=== PATIENT | male | born 1945 | race Caucasian/White ===

== ENCOUNTER 2017-09-17 12:00 | Outpatient (RCR) | payer MEDICARE, OTHER, SELFPAY ==
--- NOTE | 2017-08-09 14:56 | HP.PTEVAL_ITS ---
Patient's Visit Information DOMINICK KENNEY is a 72 year old M referred to Physical Therapy by Deon Kline DO with a diagnosis of R TKA. Date of Evaluation: 08/09/17 Physical Therapist: Tre Caraballo PT, - Visit Plan Frequency: 2-3x /Week Duration: 4-6 Weeks Plan: R knee PROM/mobs, stretching and strengthening, balance and proprio, core strengthening, nustep, and HEP - Subjective Subjective: DOS: 07/27/17. Pt reports he had a terrible year this year secondary to severe R knee pain. 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 Pt reports he is in a lot of pain since DOS. Pt reports his knee is getting better every day. Pt reports he needed help with car transfers one week ago, but is independent with transfers now. Pt notes he has been really working his knee hard to achieve more ROM. Pt reports he still gets increased pain and swelling with prolonged walking. Pt reports he does have stairs at home, but has to negotiate them one step at a time. No sleep diff at this time secondary to pain. Pt reports his worst time of the day is morning, because he gets so tight. 1/10 pain at rest, 8/10 at worst (when his knee wants to buckle back on him) - Pain R knee Pain Intensity (Out of 10): 1 Pain Intensity Range: 8 - Objective Neuro: B LE sensation is WNL at this time. Girth at joint line: L knee 43.5 cm , R knee 47.5 cm. ROM: L knee= 0-60-124, R knee= 0-15-86. Observation: Incision still healing. Pt presents with 2+ pitting edema this date. Minor redness surrounding pt's incision. No obvious signs of infection. - Goals Goal 1:: Decrease R knee pain x 50% to aid with ambulation Goal Time Frame: 4-6 Weeks Goal 2:: Increase R knee ROM x 30 degrees to aid with restoring a more normal gait pattern Goal Time Frame: 4-6 Weeks Goal 3:: Increase R knee strength x 1 grade to aid with stair negotiation Goal Time Frame: 4-6 Weeks Goal 4:: I with HEP Goal Time Frame: 4-6 Weeks - Rehabilitation Potential Physical Therapy Diagnosis: R knee pain, weakness, and swelling secondary to a R TKA Rehabilitation Potential: Good - Anticipated Interventions Patient/Client Instruction: Educate patient on: Condition, Plan of Care For the Purpose of:: To improve self management Therapeutic Exercise to Include: Strength training, Endurance training, Balance training, Flexibilty training, Gait and locomotor training, Passive ROM, Active ROM, Dynamic Lumbar Stabilization For the Purpose of:: To decrease pain, To increase ROM, To improve muscle performance and motor function Cryotherapy (ice pack, ice massage): Yes For the Purpose of:: To decrease pain Thank you for the opportunity to evaluate your patient. For Medicare and Medicare HMO plans, please review the plan of care and approve it. It will need to be FAXED BACK to us at [phone] for Medicare purposes. Please let me know if there are questions or concerns regarding this plan of care. Physician Signature: Date:
--- NOTE | 2017-09-17 12:32 | HP.PTDCSUM ---
HP - PT D/C Summary It has been my pleasure to treat DOMINICK KENNEY under orders from Deon Kline DO, for the diagnosis of R TKA for a total of 14 visit(s). Discharge Date: Please see the following information for a summary of their discharge status. - Subjective Subjective: Pt reports no pain this date. Pt is ready for discharge - Pain R knee Pain Intensity (Out of 10): 0 - Objective Objective/Function: R knee pain 0/10. R knee ROM: 0-6-120 degrees. R knee Girth: 48.5 cm. R knee MMT: 5/5 throughout. Pt is I with HEP - Goals Goal 1:: Decrease R knee pain x 50% to aid with ambulation Goal Progress: Goal Met Goal 2:: Increase R knee ROM x 30 degrees to aid with restoring a more normal gait pattern Goal Progress: Goal Met Goal 3:: Increase R knee strength x 1 grade to aid with stair negotiation Goal Progress: Goal Met Goal 4:: I with HEP Goal Progress: Goal Met - Plan Plan: discharge - D/C Information If there are questions or concerns regarding this patient's physical therapy, please feel free to call me at [phone]. Thank you for the referral of this patient. Sincerely, Tre Caraballo, PT,
== END 2017-09-17 19:00 | disposition home or self-care (01) ==
LOC: PT 12:00
PROVIDERS: Family Provider Student in an Organized Health Care Education/Training Program; PCP Student in an Organized Health Care Education/Training Program; Visit Provider Orthopaedic Surgery
DX: Z96.651 Presence of right artificial knee joint (principal)
CPT/HCPCS: 97016; 97110; 97161; 97530

== ENCOUNTER → 2017-12-13 10:08 | Outpatient (CLI) | payer MEDICARE, OTHER, SELFPAY ==
--- NOTE | 2017-12-13 10:09 | US_ITS ---
STUDY: RENAL ULTRASOUND - COMPLETE REASON FOR EXAM: Male, 72 years old. Renal cysts. TECHNIQUE: Ultrasound evaluation of the kidneys was performed with real-time and static cummins-scale imaging. COMPARISON: CT abdomen and pelvis December 01, 2016. FINDINGS: RIGHT KIDNEY: Normal location of the right kidney, which is normal in size. The right kidney measures 11.9 x 5.4 x 5.6 cm. There is a normal cortex of the right kidney. The renal cortex measures 1.5 cm. Of the cortical cysts noted by CT, only one of the anterior lower pole lesions is demonstrated here, a 2.8 x 2.5 x 2.8 cm moderately defined hypoechoic structure. There are no right renal calculi. There is no right hydronephrosis. DISTAL RIGHT URETER: There is non-visualization of the distal right ureter. There is no demonstrated right ureterovesical junction calculus. There is a visualized right ureteral jet. LEFT KIDNEY: Normal location of the left kidney, which is normal in size. The left kidney measures 12.4 x 6.0 x 5.4 cm. There is a normal cortex of the left kidney. The renal cortex measures 1.8 cm. Of the cortical cysts noted by CT, a cluster of cysts or septated, partially exophytic lower pole cyst measuring 3.8 x 4.2 x 5.9 cm is identified. There are no left renal calculi. There is no left hydronephrosis. DISTAL LEFT URETER: There is non-visualization of the distal left ureter. There is no demonstrated left ureterovesical junction calculus. There is a visualized left ureteral jet. BLADDER: The urinary bladder has a volume of 67.2 ml at the time of scanning. There is a normal wall thickness of the distended urinary bladder. There is no demonstrated mass within the urinary bladder. There are no demonstrated bladder calculi. US/Kidney and Bladder IMPRESSION: 1. Bilateral renal cortical cysts, as noted. These only represent a fraction of the numerous bilateral cortical lesions seen by CT, so future routine time interval follow-up may be more prudent with CT. 2. No hydronephrosis. Electronically Signed: Andrew Godoy MD at 17:16 EDT , Service support ,
== END ==
PROVIDERS: Family Provider Student in an Organized Health Care Education/Training Program; PCP Student in an Organized Health Care Education/Training Program; Visit Provider Urology
DX: N28.1 Cyst of kidney, acquired (principal)
CPT/HCPCS: 76770

== ENCOUNTER → 2017-12-27 14:47 | Outpatient (CLI) | payer MEDICARE, OTHER, SELFPAY ==
[2017-12-27 16:24] LABS: Anion Gap 7 (5-15); BUN 22 mg/dL (7-18); BUN/Creat Ratio 14.6 RATIO (10-20); Calcium,Total 9.2 mg/dL (8.5-10.1); Chloride 106 mmol/L (98-107); Creatinine, Serum 1.51 mg/dL (0.70-1.30); EST Glomerular Filtration Rate 49 mL/min (>60); Est Glom Filt Rate - Afr Amer 59 mL/min (>60); Glucose 88 mg/dL (74-106); PSA,Total - Annual Screen 2.83 ng/mL (0.00-4.00); Potassium 3.3 mmol/L (3.5-5.1); Sodium Level 143 mmol/L (136-145)
== END ==
PROVIDERS: Family Provider Student in an Organized Health Care Education/Training Program; PCP Student in an Organized Health Care Education/Training Program; Visit Provider Urology
DX: N28.1 Cyst of kidney, acquired (principal); Z12.5 Encounter for screening for malignant neoplasm of prostate
CPT/HCPCS: 36415; 80048; 84153; G0103

== ENCOUNTER → 2018-01-12 09:19 | Outpatient (CLI) | payer MEDICARE, OTHER, SELFPAY ==
--- NOTE | 2018-01-12 09:21 | RAD_ITS ---
STUDY: X-RAY - RIGHT KNEE REASON FOR EXAM: Male, 72 years old. Pain. TECHNIQUE: 4 view(s) of the knee. COMPARISON: Comparison is made with prior examination dated September 08, 2017. FINDINGS: Normal visualized distal femur. Normal visualized proximal tibia and fibula. Normal proximal tibiofibular articulation. The patient is status post total knee replacement. There is good alignment. Mild degree of soft tissue swelling and small joint effusion. RAD/Knee 4 or More Views IMPRESSION: Status post total knee replacement. There is good alignment. Soft tissue swelling and small joint effusion. Electronically Signed: Gee Leonardo MD at 13:49 EDT Tel [phone], Service support ,
== END ==
PROVIDERS: Family Provider Student in an Organized Health Care Education/Training Program; PCP Student in an Organized Health Care Education/Training Program; Visit Provider Orthopaedic Surgery
DX: M25.561 Pain in right knee (principal)
CPT/HCPCS: 73564

== ENCOUNTER → 2018-04-29 13:40 | Outpatient (CLI) | payer MEDICARE, OTHER, SELFPAY | PROVIDERS: Family Provider Student in an Organized Health Care Education/Training Program; PCP Student in an Organized Health Care Education/Training Program; Visit Provider Physician Assistant | DX: M25.561 Pain in right knee (principal); M25.562 Pain in left knee | CPT/HCPCS: 73564 ==

== ENCOUNTER → 2018-08-02 13:59 | Outpatient (CLI) | payer MEDICARE, OTHER, SELFPAY ==
--- NOTE | 2018-08-02 14:02 | RAD_ITS ---
STUDY: X-RAY - LUMBAR SPINE REASON FOR EXAM: Male, 73 years old. Lower back pain TECHNIQUE: 4 view(s) of the lumbar spine were obtained. COMPARISON: None FINDINGS: Mild S-shaped sclerotic curvature of the lumbar spine. Osteopenia. Lower ribs, upper medial pelvis and sacrum unremarkable. Mild symmetric degenerative features of the SI joints. Normal vertebral body height and alignment. Preserved lordosis. Mild disc narrowing is present at multiple levels between T10 and L4, with no significant disc narrowing at L4-L5 or L5-S1. There is mild mid to low lumbar facet arthropathy/hypertrophy. In the extended position, there is no evidence of vertebral body subluxation or eccentric disc space narrowing. In the flexed position, there is no evidence of vertebral body subluxation or eccentric disc space narrowing. RAD/L/S Spine Min 4 Views IMPRESSION: Mild scoliosis. Lumbar spondylosis as described above. No evidence of abnormal motion on flexion and extension views. Electronically Signed: Rufus Santiago MD at 17:56 EST Tel , Service support ,
--- OUTSIDE RECORDS SUMMARY | 2018-09-18 18:54 | XMS RPT_ITS ---
:1945 Author Organization OHIP Support Name Relationship Address Phone FRANCOIS KENNEY Unavailable [address] + [place] [address] R Unavailable Unavailable Unavailable PABLITO, FRANCOIS Unavailable [address] + [place] [address] R Unavailable Unavailable Unavailable PABLITO, FRANCOIS Unavailable [address] + [place] [address] R Unavailable Unavailable Unavailable PABLITO, FRANCOIS Unavailable [address] + [place] [address] R Unavailable Unavailable Unavailable PABLITO, FRANCOIS Unavailable [address] + [place] [address] R Unavailable Unavailable Unavailable PABLITO, FRANCOIS Unavailable [address] + [place] [address] R Unavailable Unavailable Unavailable PABLITO, FRANCOIS Unavailable [address] + [place] [address] R Unavailable Unavailable Unavailable PABLITO, FRANCOIS Unavailable [address] + [place] [address] R Unavailable Unavailable Unavailable PABLITO, FRANCOIS Unavailable [address] + [place] [address] R Unavailable Unavailable Unavailable PABLITO, FRANCOIS Unavailable [address] + [place] [address] R Unavailable Unavailable Unavailable PABLITO, FRANCOIS Unavailable [address] + [place] [address] R Unavailable Unavailable Unavailable PABLITO, FRANCOIS Unavailable [address] + [place] [address] R Unavailable Unavailable Unavailable PABLITO, FRANCOIS Unavailable [address] + [place] [address] R Unavailable Unavailable Unavailable Care Team Providers Name Role Phone CHAKA NICHOLSON ([facility]) Attending Unavailable YOON, VLADIMIR L Referring Unavailable YOON, VLADIMIR L Attending Unavailable YOON, VLADIMIR L Referring Unavailable YOON, VLADIMIR L Attending Unavailable YOON, VLADIMIR L Referring Unavailable Marin, Janessa Attending Unavailable Yoon, Vladimir Referring Unavailable Marin, Janessa Attending Unavailable Marin, Janessa Referring Unavailable Yoon, Vladimir Primary Care Unavailable Deon Kline Attending Unavailable Yoon, Vladimir Primary Care Unavailable Marin, Janessa Attending Unavailable Marin, Janessa Referring Unavailable Yoon, Vladimir Primary Care Unavailable Moodispaw, Shaka Attending Unavailable [place], Shaka Referring Unavailable Yoon, Vladimir Primary Care Unavailable [place], Shaka Attending Unavailable Yoon, Vladimir Referring Unavailable Deon Kline Attending Unavailable Yoon, Vladimir Referring Unavailable Yoon, Vladimir Primary Care Unavailable Krishna Blanco Attending Unavailable BellaKrishna Referring Unavailable Yoon, Vladimir Primary Care Unavailable Krishna Blanco Attending Unavailable BellaKrishna Referring Unavailable Yoon, Vladimir Primary Care Unavailable Deon Kline Attending Unavailable Yoon, Vladimir Referring Unavailable Yoon, Vladimir Primary Care Unavailable Eliud, Deon Attending Unavailable Deon Kline Referring Unavailable Yoon, Vladimir Primary Care Unavailable Paras Campoverde Attending Unavailable Yoon, Vladimir Referring Unavailable Yoon, Vladimir Primary Care Unavailable Paras Campoverde Attending Unavailable Paras Campoverde Referring Unavailable Yoon, Vladimir Primary Care Unavailable PROBLEMS PROBLEMS DATE TYPE CONDITION / CODE ATTENDING STATUS SOURCE 09/12/2018 Unknown I10 - Essential [place], Active [place] (primary) hypertension [facility] / I10(ICD-10) Hospital Repository 09/12/2018 Unknown R94.31 - Abnormal [place], Active [place] electrocardiogram [facility] [ECG] [EKG] / Hospital R94.31(ICD-10) Repository 09/12/2018 Unknown R53.83 - Other fatigue [place], Active [place] / R53.83(ICD-10) [facility] Hospital Repository 09/12/2018 Unknown I71.2 - Thoracic [place], Active [place] aortic aneurysm, [facility] without rupture / Hospital I71.2(ICD-10) Repository 09/12/2018 Unknown E78.5 - [place], Active [place] Hyperlipidemia, Shaka [facility] unspecified / Hospital E78.5(ICD-10) Repository 08/02/2018 Unknown M54.5 - Low back pain Janessa Marin Active [place] / M54.5(ICD-10) [facility] Repository 04/29/2018 Unknown M25.561 - Pain in Paras Campoverde Active [place] right knee / Community M25.561(ICD-10) Hospital Repository 12/13/2017 Unknown N28.1 - Cyst of Krishna Blanco Active [place] kidney, acquired / [facility] N28.1(ICD-10) Hospital Repository 02/26/2017 Active Chronic kidney NA Active [place] disease, stage 3 [facility] (moderate) / [place] N18.3(ICD-10) Repository 10/08/2017 Active 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) 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 [address] [place] [address] OFFICE VISIT Date of Service: 09/12/18 MR#: [id number] Acct: [id number] Name: DOMINICK KENNEY Rep #: [id number] : 1945 Provider: Shaka Monroy MD Age/Sex: 73/M Location: [facility] Status: Signed HPI HPI Details: DOMINICK KENNEY, is a 73 M who presents to the office today for Outpatient cardiovascular followup. Overall from a cardiac standpoint he states he has done reasonably well. He is complaining of some any typical chest discomfort near his left breast left areola left nipple area. He states this has been somewhat tender. It does not necessarily radiate. He does get somewhat short of breath and dyspneic with activity. He believes this is related to weight gain due to inactivity because of his knee related issues. He does get tired and fatigued. Again he believes this is related to a combination of his weight gain, knee related issues, and decreased functional status. He has not had any obvious orthopnea or PND or worsening peripheral pitting edema. There has been no near syncope or syncope. She had an ECG in the office today. He was noted to be in sinus rhythm/sinus bradycardia With a first-degree AV block and with a left axis deviation, possible voltage criteria for LVH, poor R-wave progression, and nonspecific ST and T-wave changes. He did have his chest CT scan performed. His ascending thoracic aortic aneurysm appear to be stable per the report. He was noted to have coronary artery calcifications. Intake Vital Signs09/12/18 Height 6 ft 09/12/18 Weight: 308 lb 09/12/18 Body Mass Index (BMI) 41.8 09/12/18 Blood Pressure 104/62 Intake Visit Reasons: 1 Y FU Allergies lisinopril Adverse Reaction (Verified 09/12/18 10:53) HEARTBURN Medications Atorvastatin Calcium 10 mg PO DAILY 07/14/17 [History Confirmed 09/12/18] Cholecalciferol (Vitamin D3) [Vitamin D3] 2,000 unit PO DAILY 07/14/17 [History Confirmed 09/12/18] Hydrochlorothiazide 12.5 mg PO DAILY 07/14/17 [History Confirmed 09/12/18] Losartan Potassium [Cozaar] 100 mg PO DAILY 07/14/17 [History Confirmed 09/12/18] Tamsulosin HCl [Flomax] 0.4 mg PO QHS 07/14/17 [History Confirmed 09/12/18] amlodipine 5 mg tablet 5 mg PO QDAY 08/26/17 [History Confirmed 09/12/18] atenolol 100 mg tablet 100 mg PO QDAY 08/26/17 [History Confirmed 09/12/18] omega-3 fatty acids 1,000 mg capsule 1,000 mg PO DAILY 09/12/18 [History Confirmed 09/12/18] sertraline 50 mg tablet 50 mg PO DAILY 09/12/18 [History Confirmed 09/12/18] [facility] Medical History Essential hypertension (Chronic) Thoracic aortic aneurysm without rupture (Chronic) Fatigue (Acute) Abnormal EKG (Acute) Hyperlipidemia (Chronic) BPH (benign prostatic hyperplasia) (Acute) YOVANI (obstructive sleep apnea) (Acute) CKD (chronic kidney disease) (Chronic) Diverticulosis (Chronic) Surgical History History of tonsillectomy and adenoidectomy (Acute) History of arthroscopy of left knee (Resolved) History of foot surgery (Resolved) Hx of appendectomy (Resolved) Status post right knee replacement (Resolved) Family History Father CAD (coronary artery disease) Mother Congestive heart failure Brother CAD (coronary artery disease) Hypertension Sister CAD (coronary artery disease) Hypertension Social History Smoking Status: Former smoker alcohol intake: current substance use type: does not use ROS Const Const: Negative for fatigue, weakness, weight gain, weight loss, frequent falls or excessive sweating Eyes Eyes: Negative for change in vision, blurry vision or transient loss of vision ENT ENT: Negative for dizziness or balance problems Cardio Chest Pain: Yes Character: sharp (rates 1 on pain scale) Onset: at rest Location: left chest Duration: brief Palpitations: No Edema: Bilateral (slight to bilat LE) Muscle aches with walking: None Resp Respiratory: Positive for SOB with activity (increased); negative for SOB at rest Additional Details: wears CPAP at night GI GI: Negative vomiting or vomiting blood/hematemesis : Negative for hematuria Musc Musc: Positive for joint pain (denies pain reports that rt knee gives out even though s/p knee replacment); negative for balance problems, muscle aches/ myalgia or muscle weakness Skin Skin: Negative non-healing lesions or rash Neuro Neuro: Negative for weakness, blurry vision, dizziness, lightheadedness, frequent falls or orthostatic symptoms Alan Hematologic/Lymphatic: Negative for easy bleeding Endo Endo: Negative for fatigue or excessive sweating Psych Psych: Negative for anxiety or depression Allergy Allergy/Immunology: Negative for hives, Negative for rash Cardiology Exam Const Appearance: cooperative, healthy appearing, comfortable, no acute distress, well developed and well groomed Nutritional Appearance: overweight and obese Orientation: alert, awake and oriented x3 Head Head: normal to inspection, normocephalic and atraumatic Ears: hearing grossly normal bilaterally Nose: external nose normal Face and Sinus: face symmetric Mouth: oral mucosae normal Eyes General: appearance normal, both eyes and all related structures Eyelids: eyelids normal Pupils: PERRL EOM: EOM intact bilaterally Neck Neck: normal visual inspection and full ROM Carotids: normal carotid upstroke Chest Chest inspection: normal inspection of the chest, symmetric chest movement and normal respiratory effort Auscultation: Bilateral: Clear to Auscultation Tender to palpation near the left aerola / nipple area Cardio Palpation: normal PMI Rate: regular rate Rhythm: regular rhythm Heart sounds: S1 normal and S2 normal GI GI: obese, normal to inspection, soft and bowel sounds present Neuro General: alert, awake and oriented x3 Skin Skin: no rashes or lesions noted Extremities Pulses: Normal: Right Radial Pulse, Left Radial Pulse Lower Extremity Edema: None: Bilateral, Trace: Right Musculoskel Musculoskeletal: joint tenderness Psych Psychological: normal affect Assessment AND Plan 1. Abnormal electrocardiogram R94.31 Plan He does have an abnormal cardiogram. Compared to an echocardiogram approximately 1 year ago appears similar. He does have cardiovascular risk factors. His chest CT scan is demonstrated coronary artery calcification. He does have some mixed symptoms. It would not be unreasonable to further evaluate him. This will include a pharmacologic stress nuclear imaging study. Walk on a treadmill at this time based upon his knee related issues were previous knee surgery and still ongoing knee related issues. Orders Orders: 2. Thoracic aortic aneurysm without rupture I71.2 Plan His thoracic aortic aneurysm appears to be stable per the report. He will continue to be followed as deemed appropriate. Orders Orders: 3. Hyperlipidemia, unspecified hyperlipidemia type E78.5 Plan He states his lipids have been under good control. A copy would be appreciated for continuity of care. Orders Orders: 4. Essential hypertension I10 Plan His blood pressure appears to be well controlled today. He will continue medical management. Orders Orders: 5. Fatigue, unspecified type R53.83 Plan He does have combination of symptoms with respect any typical chest discomfort, dyspnea, and fatigue. He has attributed these 2 noncardiovascular issues. However he does have cardiovascular risk factors. There is concern with respect to his wrist factors, coronary calcification, and symptoms as to whether or not he has developed any significant underlying COPD that would contribute to any of this. Thus he will be further evaluated with a pharmacologic stress nuclear imaging study. Orders Orders: Plan Detail Additional Comments Otherwise she will be scheduled for an outpatient visit approximately 1 year period consideration will be given based on the stability of his thoracic aortic aneurysm-ascending, as to when to repeat his chest CT scan. Thank you for allowing me to participate in the care of your patient. Please don't hesitate to call if any issues arise. This note was generated using a voice recognition system and there may be incorrect words, spelling or punctuation that were not noted when reviewing the office note prior to saving. Follow Up 1 Year (PFM) Coding Level of Care Code Off vis,est,level 4 Diagnoses Abnormal electrocardiogram R94.31 Thoracic aortic aneurysm without rupture I71.2 Hyperlipidemia, unspecified hyperlipidemia type E78.5 Hyperlipidemia type: unspecified Essential hypertension I10 Fatigue, unspecified type R53.83 Fatigue type: unspecified Coding Level of Care Code Off vis,est,level 4 Diagnoses Abnormal electrocardiogram R94.31 Thoracic aortic aneurysm without rupture I71.2 Hyperlipidemia, unspecified hyperlipidemia type E78.5 Hyperlipidemia type: unspecified Essential hypertension I10 Fatigue, unspecified type R53.83 Fatigue type: unspecified Supplemental Info Supplemental Information Transthoracic echocardiogram: 07/29/2017 Interpretation Summary The estimated ejection fraction is 65 %. Stage 1 diastolic dysfunction. Trivial mitral valve insufficiency. Mild (1+) tricuspid valve insufficiency. Right ventricular systolic pressure estimated to be 45 mmHg. Mild pulmonary hypertension. Compared to echo report dated 12/31/2009, LV Function has remained the same, but RVSP has increased from 32 to 45 mm Hg. Stress test: 12/31/2009 The patient was injected with 15.0 mCi of Tc99m Cardiolite and subsequently rest SPECT Cardiolite nuclear imaging was obtained in the horizontal long, vertical long, and short axes views, The patient underwent pharmacologic (Regadenoson) evaluation, with a peak heart rate of 74 beats per minute (47% predicted maximum heart rate) with a peak blood pressure of 160/80 mmHg. The patient was injected with 44.8 mCi of Tc99m Cardiolite and subsequently stress SPECT Cardiolite nuclear imaging was obtained in the horizontal long, vertical long, and short axes views. Gated Cardiolite study at peak stress was obtained. INTERPRETAT ION Rest and stress demonstrate a small area of subtle diminished tracer uptake in the lateral apical segment without significant change. There were similar type findings on the resting and stress polar map images. There is end systolic thickening and brightening. On the gated Cardiolite study there is myocardial thickening and inward wall motion. The reported LVEF is 56%. The aforementioned findings appear compatible with physiologic apical thinning. There are no myocardial perfusion changes considered diagnostic for stress induced myocardial ischemia. The gated LVEF is 56%, IMPRESSION 1. Rest and stress SPECT Cardiolite nuclear imaging demonstrate myocardial perfusion changes appearing compatible with physiologic apical thinning. 2. There are no myocardial perfusion changes considered diagnostic Chest CT scan: 09/07/2018 Normal enhancement of the main pulmonary artery and right and left pulmonary arteries. Normal enhancement of the bilateral peripheral pulmonary arteries. There is no demonstrated pulmonary embolism. There is minimal aneurysmal dilatation of the ascending aorta. The transverse diameter of the ascending aorta measures 42 mm's. There is no demonstrated aortic dissection. There is ectasia and tortuosity of the thoracic aorta at the level of the diaphragmatic hiatus. There are calcifications of the coronary arteries. Normal mediastinum. Normal hilar regions. Normal visualized trachea and bronchi. The lungs are well expanded. Normal pulmonary parenchyma. Normal pleura. Normal chest wall structures. There are degenerative changes of thoracic spine. Fatty infiltration of the liver. CT/CTA Chest W/WO Contrast IMPRESSION: Minimal dilatation of the ascending thoracic aorta. Labs LDL Cholesterol 45 mg/dL (0-130) 10/15/14 HDL Cholesterol 29 mg/dL (40-) L 10/15/14 Triglycerides 158 mg/dL (0-199) 10/15/14 VLDL Cholesterol 32 mg/dL (5-40) 10/15/14 Diagnostics Electrocardiogram 09/12/18 Chest X-Ray 07/28/17 09/12/18 1147 <Electronically signed by Shaka Monroy MD> Date Shaka Monroy MD Cosigner Signature: Date (if applicable) CC: Vladimir Caputo DO 12 LEAD EKG PERFORMED Observed: 09/12/2018 Status: F Source: [place] BY [facility] 11:02 AM [facility] REPOSITORY [facility] [address] [place] [address] 12 Lead EKG performed by [facility] 09/12/18 110 MR#: [id number] Acct: [id number] Name: DOMINICK KENNEY Rep #: [id number] : 1945 73 From: Shaka Monroy MD Attending Dr: Shaka Monroy MD Status: DEP AMB Ordering Dr: Shaka Monroy MD Date: 09/12/18 Location: [facility] Sex: M C Admitted: BMS/12 Lead EKG performed by [facility] ECG Report Interpretation Sinus Bradycardia -First degree A-V block Left axis deviationPossible Left anterior fascicular block Voltage criteria for Left ventricular hypertrophy Poor R-wave progression -may be secondary to left ventricular hypertrophy; cannot excluded old anterior infarct. Abnormal Electronically signed on 09/12/2018 at 12:01 by Shaka Monroy [employer] Version 8610 09/12/18 1203 Date Shaka Monroy MD CC: Vladimir Caputo DO Date Dictated: 09/12/181100 Date Transcribed: 09/12/181100 Vocational Horticulture Instructor: PM Signed CREATININE FINGERSTICK Collected: 09/07/2018 Status: F Source: [place] 8:00 AM [facility] REPOSITORY TYPE CODE TESTS RESULT OUT OF RANGE REFERENCE UNITS LAB L9100.0210 0.70-1.30 mg/dL Normal CREATININE WB 1.2 Performed By: #### L9100.0200 #### [facility] [address] [place] [address] CTA CHEST W/WO Observed: 09/07/2018 Status: F Source: [place] CONTRAST 7:54 AM [facility] REPOSITORY [facility] Imaging Services [address] [place] [address] CTA Chest W/WO Contrast MR#: [id number] Acct: [id number] Name: DOMINICK KENNEY Rep #: [id number] : 1945 M 73 From: Gee Leonardo MD PCP: Vladimir Caputo DO Status: REG CLI Study: CTA Chest W/WO Contrast Date of Exam: 09/07/18 Exam# [id number] Ordering Dr: Shaka Monroy MD STUDY: CTA CHEST REASON FOR EXAM: Male, 73 years old. Follow-up for thoracic aortic aneurysm. RADIATION DOSAGE (If Supplied By Facility): CTDIvol = ( 25.04 ) mGy, DLP = ( 777.74 ) mGycm TECHNIQUE: The examination was performed with the intravenous administration of 100ml ml of Isovue 370 contrast material. Post-processing of the angiographic images was performed, with multiplanar reformation and 3D reconstruction. Individualized dose optimization techniques were used for this CT. COMPARISON: None. FINDINGS: Normal enhancement of the main pulmonary artery and right and left pulmonary arteries. Normal enhancement of the bilateral peripheral pulmonary arteries. There is no demonstrated pulmonary embolism. There is minimal aneurysmal dilatation of the ascending aorta. The transverse diameter of the ascending aorta measures 42 mm's. There is no demonstrated aortic dissection. There is ectasia and tortuosity of the thoracic aorta at the level of the diaphragmatic hiatus. There are calcifications of the coronary arteries. Normal mediastinum. Normal hilar regions. Normal visualized trachea and bronchi. The lungs are well expanded. Normal pulmonary parenchyma. Normal pleura. Normal chest wall structures. There are degenerative changes of thoracic spine. Fatty infiltration of the liver. CT/CTA Chest W/WO Contrast IMPRESSION: Minimal dilatation of the ascending thoracic aorta. Electronically Signed: Gee Leonardo MD at 14:39 EST Tel [phone], Service support , CC: Vladimir Caputo DO; Shaka Monroy MD Vocational Horticulture Instructor: Signed ORTHOPEDIC VISIT Observed: 08/13/2018 Status: F Source: [place] REPORT 4:26 PM [facility] REPOSITORY [facility] [address] [facility] [address] [place] [address] OFFICE VISIT Date of Service: 08/02/18 MR#: [id number] Acct: [id number] Name: DOMINICK KENNEY Rep #: [id number] : 1945 Provider: Janessa Marin MD Age/Sex: 73/M Location: [facility] Status: Signed Intake Intake Visit Reasons: LOW BACK Is patient in pain?: Yes Allergies lisinopril Adverse Reaction (Verified 08/02/18 15:17) HEARTBURN Medications Atorvastatin Calcium 10 mg PO DAILY 07/14/17 [History Confirmed 10/20/17] Cholecalciferol (Vitamin D3) [Vitamin D3] 2,000 unit PO DAILY 07/14/17 [History Confirmed 10/20/17] Cyanocobalamin [Vitamin B12] 1,000 mcg PO DAILY@0800 07/14/17 [History Confirmed 10/20/17] Hydrochlorothiazide 12.5 mg PO DAILY 07/14/17 [History Confirmed 10/20/17] Losartan Potassium [Cozaar] 100 mg PO DAILY 07/14/17 [History Confirmed 10/20/17] [place] Vitals 1 cap PO BID 07/14/17 [History Confirmed 10/20/17] Tamsulosin HCl [Flomax] 0.4 mg PO QHS 07/14/17 [History Confirmed 10/20/17] amlodipine 5 mg tablet 5 mg PO QDAY 08/26/17 [History Confirmed 10/20/17] atenolol 100 mg tablet 100 mg PO QDAY 08/26/17 [History Confirmed 10/20/17] PFSH Medical History Hypertension (Chronic) Thoracic aortic aneurysm without rupture (Acute) Fatigue (Acute) Abnormal EKG (Acute) Hyperlipidemia (Acute) BPH (benign prostatic hyperplasia) (Acute) YOVANI (obstructive sleep apnea) (Acute) CKD (chronic kidney disease) (Chronic) Diverticulosis (Chronic) Surgical History History of tonsillectomy and adenoidectomy (Acute) History of arthroscopy of left knee (Resolved) History of foot surgery (Resolved) Hx of appendectomy (Resolved) Status post right knee replacement (Resolved) Family History Father CAD (coronary artery disease) Mother Congestive heart failure Brother CAD (coronary artery disease) Hypertension Sister CAD (coronary artery disease) Hypertension Social History Smoking Status: Former smoker alcohol intake: current substance use type: does not use HPI LOW BACK: Details: DOMINICK KENNEY is a 73 year old RHD M here today for low back pain 80% and 20% bilateral numbness starting from his knees and going distally into his feet. Patient notes that he has pain over his right low back. He is unsure though if it is due to have a right total knee last year by Dr. Kline. He denies postoperative complications. His pain is worse in his back in the morning and when he sleeps on the right side. It is improved with sleeping on his back. He denies any physical therapy or injections. Patient states that he has tried acupuncture which is helpful. He takes alleve as needed. He denies bowel or bladder issues, gait instability or loss of hand dexterity. He denies any pain medications. He denies constitutional symptoms. He has hypertension, hypercholesterolemia, and PTSD. He states his bilateral calf and feet paresthesias are chronic. He is retired. He does not smoke. He does not drink. ROS Const Reports system reviewed and no additional complaints, except as docu Eyes Reports system reviewed and no additional complaints, except as docu ENT Reports system reviewed and no additional complaints, except as docu Card Reports system reviewed and no additional complaints, except as docu Resp Reports system reviewed and no additional complaints, except as docu GI Reports system reviewed and no additional complaints, except as docu Reports system reviewed and no additional complaints, except as docu Musc Reports back pain, Reports numbness, Reports muscle weakness Skin/Breast Reports system reviewed and no additional complaints, except as docu Neuro Yes system reviewed and no additional complaints, except as docu, Yes numbness Psych Reports system reviewed and no additional complaints, except as docu Endo Reports system reviewed and no additional complaints, except as docu Ortho Exam Spine Neuro: Yes Straight Leg Raise (negative bilaterally), Montano's (negative bilaterally), Babinski (downgoing bilaterally) and Clonus (none bilaterally) General: alert, oriented x3 Skin: Yes dysraphism (none) Capillary Refill <2sec: Yes Gait: normal gait, other (heel and toe walk) Motor: strength 5/5 throughout Sensory Exam: other (decreased sensation in the bilateral calf and feet in stocking glove way) DTR's: Rt Triceps: 2+, Lt Triceps: 2+, Rt Biceps: 2+, Lt Biceps: 2+, Rt Brachioradialis: 2+, Lt Brachioradialis: 2+, Rt Patellar: 2+, Lt Patellar: 2+, Rt Ankle: 2+, Lt Ankle: 2+ Plantar Reflexes: Downgoing: bilateral Coordination: Romberg test normal, other (unable to tandem gait due to knee pain) SPINE TESTING CERVICAL THORACIC LUMBAR SLR: Negative Musculoskeletal General: Yes normal gait Cervical Spine: cervical ROM normal Thoracic/Lumbar Spine: straight leg raise negative bilaterally, pain with thoraco-lumbar ROM (worse with lumbar extension), thoraco-lumbar ROM limited, paraspinal tenderness Strength 0=absent - 5=normal Deltoid R (C5): 5, Deltoid L (C5): 5, R Bicep (C5-6): 5, L Bicep (C5-6): 5, R Wrist Extensor (C6): 5, L Wrist Extensor (C6): 5, R Tricep (C7): 5, L Tricep (C7): 5, R Finger Flexors (C8): 5, L Finger Flexors (C8): 5, R First Dorsal Interossei (C8): 5, L First Dorsal Interossei (C8): 5, R Hip Flexor (L1-3): 5, L Hip Flexor (L1-3): 5, R Quadriceps (L2-4): 5, L Quadriceps (L2-4): 5, R Anterior Tibialis (L4-5): 5, L Anterior Tibialis (L4- 5): 5, R Hamstrings (L5-S1): 5, L Hamstrings (L5-S1): 5, GS (S1): 5, L GS (S1): 5, R Peroneals (S1): 5, L Peroneals (S1): 5 Assessment AND Plan Problems 1. Chronic bilateral low back pain without sciatica M54.5; G89.29 Plan Imaging: XR lumbar spine 08/02/2018 reveals diffuse spondylosis MRI lumbar spine 05/11/2017 reveals diffuse spondylosis with mild L4-5 foraminal stenosis. No severe central or lateral recess stenosis EMG 04/07/2017 reveals irritable L5-S1 right greater than left I/R/P: 1. back pain 2. bilateral leg paresthesias in a stocking glove distribution. No radiating pain 3. history of right TKA 2016 4. PTSD Mr. Kenney presents with back pain and bilateral calf and feet paresthesias. His MRI does not reveal significant compressive neural lesion to correlate with his clinical complaints. Surgical intervention is not recommended at this time. The natural history and course of the symptomatology of back pain was discussed in detail with the patient. I answered all questions regarding the mode of onset, pathophysiology, symptoms, imaging findings, treatment options regarding his diagnosis. Recommend referral to PCP for peripheral neuropathy evaluation and work up. Discussed pain management referral and physical therapy referral. Patient declines at this time. He will contact us if he changes his mind. Plan of care discussed. All questions answered. The patient verbalized understanding of the disease process and agreed to the treatment plan formulated for this visit. Orders Orders: Coding Level of Care Code Off vis,new,level 4 Diagnoses Chronic bilateral low back pain without sciatica M54.5; G89.29 Back pain location: low back pain Chronicity: chronic Back pain laterality: bilateral Sciatica presence: without sciatica 08/13/18 1626 <Electronically signed by Janessa Marin MD> Date Janessa Marin MD Cosigner Signature: Date (if applicable) CC: L/S SPINE MIN 4 Observed: 08/02/2018 Status: F Source: [place] 2:02 PM [facility] REPOSITORY [facility] Imaging Services [address] [place], [place] [address] [address] L/S Spine Min 4 Views MR#: [id number] Acct: [id number] Name: DOMINICK KENNEY Rep #: [id number] : 1945 M 73 From: Rufus Santiago MD PCP: Vladimir Caputo DO Status: REG CLI Study: L/S Spine Min 4 Views Date of Exam: 08/02/18 Exam# [id number] Ordering Dr: Janessa Marin MD STUDY: X-RAY - LUMBAR SPINE REASON FOR EXAM: Male, 73 years old. Lower back pain TECHNIQUE: 4 view(s) of the lumbar spine were obtained. COMPARISON: None FINDINGS: Mild S-shaped sclerotic curvature of the lumbar spine. Osteopenia. Lower ribs, upper medial pelvis and sacrum unremarkable. Mild symmetric degenerative features of the SI joints. Normal vertebral body height and alignment. Preserved lordosis. Mild disc narrowing is present at multiple levels between T10 and L4, with no significant disc narrowing at L4-L5 or L5-S1. There is mild mid to low lumbar facet arthropathy/hypertrophy. In the extended position, there is no evidence of vertebral body subluxation or eccentric disc space narrowing. In the flexed position, there is no evidence of vertebral body subluxation or eccentric disc space narrowing. RAD/L/S Spine Min 4 Views IMPRESSION: Mild scoliosis. Lumbar spondylosis as described above. No evidence of abnormal motion on flexion and extension views. Electronically Signed: Rufus Santiago MD at 17:56 EST Tel , Service support , CC: Janessa Marin MD; Vladimir Caputo DO Vocational Horticulture Instructor: Signed ORTHOPEDIC VISIT Observed: 04/29/2018 Status: F Source: [place] RE[place] 3:53 PM [facility] REPOSITORY [facility] Medicine [address] [place] [address] OFFICE VISIT Date of Service: 04/29/18 MR#: [id number] Acct: [id number] Name: DOMINICK KENNEY Rep #: [id number] : 1945 Provider: JUANA Campoverde Age/Sex: 72/M Location: [facility] [place].[facility] [place] Status: Signed Intake Intake Visit Reasons: RIGHT KNEE Allergies lisinopril Adverse Reaction (Verified 10/20/17 09:00) HEARTBURN Medications Atorvastatin Calcium 10 mg PO DAILY 07/14/17 [History Confirmed 10/20/17] Cholecalciferol (Vitamin D3) [Vitamin D3] 2,000 unit PO DAILY 07/14/17 [History Confirmed 10/20/17] Cyanocobalamin [Vitamin B12] 1,000 mcg PO DAILY@0800 07/14/17 [History Confirmed 10/20/17] Hydrochlorothiazide 12.5 mg PO DAILY 07/14/17 [History Confirmed 10/20/17] Losartan Potassium [Cozaar] 100 mg PO DAILY 07/14/17 [History Confirmed 10/20/17] [place] Vitals 1 cap PO BID 07/14/17 [History Confirmed 10/20/17] Tamsulosin HCl [Flomax] 0.4 mg PO QHS 07/14/17 [History Confirmed 10/20/17] amlodipine 5 mg tablet 5 mg PO QDAY 08/26/17 [History Confirmed 10/20/17] atenolol 100 mg tablet 100 mg PO QDAY 08/26/17 [History Confirmed 10/20/17] PFSH Medical History Hypertension (Chronic) Thoracic aortic aneurysm without rupture (Acute) Fatigue (Acute) Abnormal EKG (Acute) Hyperlipidemia (Acute) BPH (benign prostatic hyperplasia) (Acute) YOVANI (obstructive sleep apnea) (Acute) CKD (chronic kidney disease) (Chronic) Diverticulosis (Chronic) Surgical History History of tonsillectomy and adenoidectomy (Acute) History of arthroscopy of left knee (Resolved) History of foot surgery (Resolved) Hx of appendectomy (Resolved) Status post right knee replacement (Resolved) Family History Father CAD (coronary artery disease) Mother Congestive heart failure Brother CAD (coronary artery disease) Hypertension Sister CAD (coronary artery disease) Hypertension Social History Smoking Status: Former smoker alcohol intake: current substance use type: does not use HPI RIGHT KNEE: Details: DOMINICK KENNEY is a 72 year old M here today for increased right knee pain and new onset left knee pain. He has distal quad/femur pain on the right and medial knee pain on the left. His is 9 months post TKA on the right and he states that its tight and he feels something shifting. He has had no injections or imaging of the left. Denies numbness, tingling or other associated symptoms. Decreased rom in bilateral knees. Ortho Exam Right Knee Date of Surgery: 07/27/17 Skin/Wound: Yes CDI Contralateral Normal: No Swelling: Yes Homans Sign: No Knee ROM: Yes ROM-Extension -20 to 0, Yes ROM-Flexion 0-140 (110) Examination: Yes Pain with flexion, No Pain with extention, Yes Crepitus, No Med jt line tenderness, No Lat jt line tenderness Quad Atrophy: No Patella Grind: Yes Left Knee Skin/Wound: Yes CDI Contralateral Normal: No Swelling: Yes Homans Sign: No Knee ROM: Yes ROM-Extension -20 to 0, Yes ROM-Flexion 0-140 (110) Examination: Yes med jt line tenderness, Yes Pain with flexion, Yes Crepitus Office Procedures Ortho Injections Injections Yes Knee Left Details: Obtained consent for injection. Under sterile conditions, injected the patients left knee with a 10cc cocktail of 8cc bupivacaine and 2cc kenalog . The patient tolerated the injection well without any noted complication. Patient should call our office if redness develops, pain worsens or if they have any concerns. Office Meds Kenalog Performing Provider: JUANA Garg Administered by: JUANA Garg on 04/29/18 14:38 Dose Route Admin Location Lot Number Expiration DateNDC Venture Capital Analyst 80 mg Intra-Articularleft knee [id number] 07/23/19 [id number] [facility] Assessment AND Plan Problems 1. History of arthroplasty of right knee Z96.651 2. Arthritis of left knee M17.12 Plan Patient has no pains within the joint on the right. HIs hardware appears stable without interval change from previous x-rays. His pains though are in the right quad area and he has some mild atrophy as well as some patellofemoral grind and thus need to really work on quad strength. Weight loss is also something that would be beneficial for his knees. We discussed that if he has any worsening or change in pains that he is to see Dr. Rubio for evaluation. We did go ahead and give him an injection into the left knee at this time. Patient to f/u as needed. 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 ([id number]) 04/29/18 1553 <Electronically signed by Paras ARIAS> Date Paras ARIAS Cosigner Signature: Date (if applicable) CC: KNEE 4 OR MORE Observed: 04/29/2018 Status: F Source: [place] VIEWS 1:46 PM [facility] REPOSITORY [facility] Imaging Services [address] [place] [address] Knee 4 or More Views MR#: [id number] Acct: [id number] Name: DOMINICK KENNEY Rep #: [id number] : 1945 M 72 From: Leonidas Campbell MD PCP: Vladimir Caputo DO Status: REG CLI Study: Knee 4 or More Views Date of Exam: 04/29/18 Exam# [id number] Ordering Dr: Paras Campoverde STUDY: X-RAY - LEFT KNEE REASON FOR EXAM: Male, 72 years old. Bilateral knee pain. TECHNIQUE: For view(s) of the knee. COMPARISON: None. FINDINGS: Normal visualized distal femur. Normal visualized proximal tibia and fibula. Normal proximal tibiofibular articulation. There is no demonstrated fracture. There is moderate degenerative arthrosis of the medial femorotibial compartment with moderate joint space narrowing. Normal lateral femorotibial compartment. Normal patellofemoral articulation. There is no demonstrated joint effusion. There are faint vascular calcifications. RAD/Knee 4 or More Views IMPRESSION: Degenerative arthrosis. Electronically Signed: Leonidas Campbell MD at 14:21 EDT Tel , Service support , CC: JUANA Campoverde; Vladimir Caputo DO Vocational Horticulture Instructor: Signed KNEE 4 OR MORE Observed: 04/29/2018 Status: F Source: [place] VIEWS 1:43 PM [facility] REPOSITORY [facility] Imaging Services [address] [place] [address] Knee 4 or More Views MR#: [id number] Acct: [id number] Name: DOMINICK KENNEY Rep #: [id number] : 1945 M 72 From: Leonidas Campbell MD PCP: Vladimir Caputo DO Status: REG CLI Study: Knee 4 or More Views Date of Exam: 04/29/18 Exam# [id number] Ordering Dr: Paras Campoverde STUDY: X-RAY - RIGHT KNEE REASON FOR EXAM: Male, 72 years old. Bilateral knee pain. TECHNIQUE: For view(s) of the knee. COMPARISON: None. FINDINGS: Normal visualized distal femur. Normal visualized proximal tibia and fibula. Normal proximal tibiofibular articulation. There is no demonstrated fracture. There is total right knee prosthesis. There is no evidence of joint effusion. The soft tissue structures are unremarkable. RAD/Knee 4 or More Views IMPRESSION: Status post total knee prosthesis. No demonstrated acute osseous changes. Electronically Signed: Leonidas Campbell MD at 14:20 EDT Tel , Service support , CC: JUANA Campoverde; Vladimir Caputo DO Vocational Horticulture Instructor: Signed ORTHOPEDIC VISIT Observed: 02/06/2018 Status: F Source: [place] RE[place] 8:51 PM [facility] REPOSITORY [facility] Orth[facility] AND Sports Medicine [address] [place] [address] OFFICE VISIT Date of Service: 01/12/18 MR#: [id number] Acct: [id number] Name: DOMINICK KENNEY Rep #: [id number] : 1945 Provider: Deon Kline DO Age/Sex: 72/M Location: [facility] [place] Status: Signed Intake Intake Visit Reasons: right knee Allergies lisinopril Adverse Reaction (Verified 10/20/17 09:00) HEARTBURN Medications Atorvastatin Calcium 10 mg PO DAILY 07/14/17 [History Confirmed 10/20/17] Cholecalciferol (Vitamin D3) [Vitamin D3] 2,000 unit PO DAILY 07/14/17 [History Confirmed 10/20/17] Cyanocobalamin [Vitamin B12] 1,000 mcg PO DAILY@0800 07/14/17 [History Confirmed 10/20/17] Hydrochlorothiazide 12.5 mg PO DAILY 07/14/17 [History Confirmed 10/20/17] Losartan Potassium [Cozaar] 100 mg PO DAILY 07/14/17 [History Confirmed 10/20/17] [place] Vitals 1 cap PO BID 07/14/17 [History Confirmed 10/20/17] Tamsulosin HCl [Flomax] 0.4 mg PO QHS 07/14/17 [History Confirmed 10/20/17] amlodipine 5 mg tablet 5 mg PO QDAY 08/26/17 [History Confirmed 10/20/17] atenolol 100 mg tablet 100 mg PO QDAY 08/26/17 [History Confirmed 10/20/17] PFSH Medical History Hypertension (Chronic) Thoracic aortic aneurysm without rupture (Acute) Fatigue (Acute) Abnormal EKG (Acute) Hyperlipidemia (Acute) BPH (benign prostatic hyperplasia) (Acute) YOVANI (obstructive sleep apnea) (Acute) CKD (chronic kidney disease) (Chronic) Diverticulosis (Chronic) Surgical History History of tonsillectomy and adenoidectomy (Acute) History of arthroscopy of left knee (Resolved) History of foot surgery (Resolved) Hx of appendectomy (Resolved) Status post right knee replacement (Resolved) Family History Father CAD (coronary artery disease) Mother Congestive heart failure Brother CAD (coronary artery disease) Hypertension Sister CAD (coronary artery disease) Hypertension Social History Smoking Status: Former smoker alcohol intake: current substance use type: does not use HPI right knee: Details: DOMINICK KENNEY is a 72 year old M here today for s/p right TKA dos 07/27/17. Patient notes that he is doing well. He has some increased pain while ambulating down the stairs. His pain is over his lateral knee. Denies numbness, tingling or other associated symptoms. His incision is fully healed. ROS Const Reports system reviewed and no additional complaints, except as docu Eyes Reports system reviewed and no additional complaints, except as docu ENT Reports system reviewed and no additional complaints, except as docu Card Reports system reviewed and no additional complaints, except as docu Resp Reports system reviewed and no additional complaints, except as docu GI Reports system reviewed and no additional complaints, except as docu Reports system reviewed and no additional complaints, except as docu Musc Reports stiffness Skin/Breast Reports system reviewed and no additional complaints, except as docu Neuro Yes system reviewed and no additional complaints, except as docu Psych Reports system reviewed and no additional complaints, except as docu Endo Reports system reviewed and no additional complaints, except as docu Ortho Exam Right Knee Skin/Wound: Yes CDI Contralateral Normal: No Swelling: No Homans Sign: No Knee ROM: Yes ROM-Flexion 0-140 (0-120) Examination: No Med jt line tenderness, No Lat jt line tenderness, No TTP inf pole patella, No Crepitus, No Pain with flexion, No Pain with extention, No Maryam's Test, No Dial at 90, No Dial at 60, No Duck Walk Quad Atrophy: No Stability: NML: Anterior Drawer, NML: Rizwana, NML: Posterior Drawer, NML: Valgus 0, NML: Valgus 30, NML: Varus 0, NML: Varus 30, NML: Dial 90, NML: Dial 30 Popliteal Adenopathy: No Patella Translation: 1 Apprehension with Lateral Translation: No Patellar Tilt Normal: Yes Patella Grind: No KNEE: Alert and oriented x3 no acute distress. Provide contact and affect. Otherwise walks a nonantalgic gait. He has no calf pain and negative Homans. Gross motor strength 5 out of 5. No popliteal masses or adenopathy. EHL anterior gastrocsoleus peroneals quads hamstrings 5 out of 5. Range of motion 0-120. Ligaments are stable in all planes. Able to perform straight leg raise without a lag. X-rays: Evaluated by myself with the patient-normal radiographic appearance status post right total knee arthroplasty. Hardware otherwise well-seated well placed. No signs of early loosening. Left Knee Patella Translation: 1 Assessment AND Plan Problems 1. Primary osteoarthritis of right knee M17.11 2. History of total right knee replacement (TKR) Z96.651 Plan Assessment: Right knee osteoarthritis status post right total knee arthroplasty doing well. Plan: This point time patient is doing well. His range of motion looks very good continues to improve on his overall strength. Did tell patient some of the discomfort he feels going downhill may be related to not only prosthesis but also continue to work on quad strengthening. Otherwise he says generally his knee feels very good he forgets he has a prosthesis. The patient can ultimately follow up here in 6 months for his surveillance x-rays with our physician pier master assistant Avery. However if there is an issue the patient will be referred to the orthopedic group. Patient agrees with plan. He is aware that I am leaving the practice in February. Any major issues return. Orders Orders: Coding Level of Care Code Off vis,est,level 4 Diagnoses Primary osteoarthritis of right knee M17.11 Osteoarthritis type: primary History of total right knee replacement (TKR) Z96.651 02/06/182050 <Electronically signed by Deon Kline DO> Date Deon Kline DO Cosigner Signature: Date (if applicable) CC: KNEE 4 OR MORE Observed: 01/12/2018 Status: F Source: [place] VIEWS 9:21 AM [facility] REPOSITORY [facility] Imaging Services [address] [place] [address] Knee 4 or More Views MR#: [id number] Acct: [id number] Name: DOMINICK KENNEY Rep #: [id number] : 1945 M 72 From: Gee Leonardo MD PCP: Vladimir Caputo DO Status: REG CLI Study: Knee 4 or More Views Date of Exam: 01/12/18 Exam# [id number] Ordering Dr: Deon Kline DO STUDY: X-RAY - RIGHT KNEE REASON FOR EXAM: Male, 72 years old. Pain. TECHNIQUE: 4 view(s) of the knee. COMPARISON: Comparison is made with prior examination dated September 08, 2017. FINDINGS: Normal visualized distal femur. Normal visualized proximal tibia and fibula. Normal proximal tibiofibular articulation. The patient is status post total knee replacement. There is good alignment. Mild degree of soft tissue swelling and small joint effusion. RAD/Knee 4 or More Views IMPRESSION: Status post total knee replacement. There is good alignment. Soft tissue swelling and small joint effusion. Electronically Signed: Gee Leonardo MD at 13:49 EDT Tel [phone], Service support , CC: Vladimir Caputo DO; Deon Kline DO Vocational Horticulture Instructor: Signed PROGRESS Observed: 01/10/2018 Status: COMPLETED Source: [place] 12:07 PM [facility] REPOSITORY HNO ID: [id number] Author: Vladimir Yoon Service: (none) Author Type: Physician Type: Progress Notes Filed: 01/12/2018 7:21 AM Note Text: CC: Dominick Kenney is a 72 year old male who presents to the office for 3 months follow up HPI: Previously Was seen by Dr. Blanco Urologist for abnormal renal function testing/renal US abnormality. ? Still with left skin issue above his lip with redness without pain, ?Hasn't improved with antibiotic ointment, steroid ointment or antifungal ointment ?? he has been seeing Dr. Blanco for his abnormal renal function, diagnosed with b/l renal cysts, simple per Dr. Blanco, asked for repeat studies in 1 year, no invasive biopsy needed ?? B/l knee pain and arthritis, seeing employee communications specialist Dr. Patterson, has had some injections in his knees with relief. ?Has close f/u with him. ?? Rhinnorrhea, PND by description clear and intermittent cough, mostly in AM, no obvious wheezing, has tried antihistamines in the past but cuase him to feel dry and tired. ?Non productive cough, no hemoptysis, no fevers or chills. ??Denies hx of asthma, has allergies. Year long symptoms, hasn't seen Product Marketer ?? + continued?fatigue, low normal vitamin B12, vitamin D level is only 31, doesn't take supplements at this time, normal CBC and TSH levels. ?? BLOOD PRESSURE has been well controlled but is having SE of leg edema with the amlodipine, asking for alternative options ?? B/l tingling, paresthesias in legs, worse with prolonged walking, sometimes also at rest, both legs below the knees, sometimes aching discomfort, has had normal PVR in the past (6-7 years ago), goes to chiropractor monthly for adjustments with improvements. ?Sometimes feels like lower legs are weak. ?No falls or spasms. ??He has had EMG/NCT which showed lumbar radiculopathy concerns, ?MRI confirmed this- has disc bulging throughout lumbar spine, no spinal stenosis, does have lumbar radiculopathy. ?Is getting accupuncture- starting this with some relief with Dr. Glover office ? At last OFFICE VISIT 3 months ago ? Healing well from right knee replacement in July, Is trying ot be more physically active, excited about spring weather. ? B/l leg edema, refusing to wear compression stockings, varicose veins and chronic edema. No current open sores, did have one on right larson area after scratching skin open. ? CKD, seeing Court Collections Officer, no new symptoms ? ? Glucose (mg/dL) Date Value 10/08/2017 108 Potassium (mmol/L) Date Value 10/08/2017 3.6 Sodium (mmol/L) Date Value 10/08/2017 141 Chloride (mmol/L) Date Value 10/08/2017 101 CO2 (mmol/L) Date Value 10/08/2017 28 Creatinine (mg/dL) Date Value 10/08/2017 1.51 BUN (mg/dL) Date Value 10/08/2017 22 Anion Gap (mmol/L) Date Value 10/08/2017 12 Calcium (mg/dL) Date Value 10/08/2017 9.7 Protein, Total (g/dL) Date Value 10/08/2017 7.4 Albumin (g/dL) Date Value 10/08/2017 4.1 Bilirubin, Total (mg/dL) Date Value 10/08/2017 2.3 Alkaline Phosphatase (U/L) Date Value 10/08/2017 54 AST (U/L) Date Value 10/08/2017 35 ALT (U/L) Date Value 10/08/2017 32 ? ? Hemoglobin (g/dL) Date Value 10/08/2017 13.4 Hematocrit (%) Date Value 10/08/2017 39.2 WBC (k/uL) Date Value 10/08/2017 5.77 ? ?Currently, present in office with Concerns for continued b/l leg swelling, symmetric, sometimes skin feeling tight. is taking HCTZ 12.5 mg a day. Has been seen recently in office by Dr. Blanco Urologist as well as Court Collections Officer. No new concerns urologically HTN, has been well controlled, no CP or dyspnea or dizziness/LH symptoms Skin lesion above lip on left is still present, hasn't seen Soda Fountain Operator yet, interested in seeing Dr. Perez, no personal hx of skin cancer. Chronic dry cough for months, has had normal CXR at the [facility], hasn't had a repeat CT chest or PFTs, will call [facility] to discuss further testing, no fevers or chills or hemoptysis YOVANI, use of his CPAP as prescribed, sleeping well overall PAST MEDICAL HISTORY Diagnosis Date - Aortic aneurysm (HCC) Dr. Casey - Benign neoplasm of rectum and anal canal - CKD (chronic kidney disease), stage III 07/2015 - Diverticulosis of colon (without mention of hemorrhage) Diverticulosis - Essential hypertension, benign - Family history of malignant neoplasm of gastrointestinal tract - Hyperplasia of prostate - Snoring - Thrombocytopenia (HCC) stable - Unspecified hemorrhoids without mention of complication Hemorrhoids - Unspecified sleep apnea Sleep apnea PAST SURGICAL HISTORY Procedure Laterality Date - APPENDECTOMY - COLONOSCOP W/ OR W/O [facility] SPEC 10/02/2004 Colonoscopy - COLONOSCOP W/ OR W/O [facility] SPEC 02/17/16 Colonoscopy - COLONOSCOPY W/BX 10/09/10 - PAST SURGICAL HISTORY OF right knne scope - PAST SURGICAL HISTORY OF benign tumor rt side neck - PAST SURGICAL HISTORY OF rt heel spur lt neuroma lt foot - PAST SURGICAL HISTORY OF left outter ear skin cancer removed and skin graft - REMOVAL ADENOIDS,PRIMARY,<12 Y/O Adenoidectomy - REMOVAL ADENOIDS,PRIMARY,<12 Y/O Adenoidectomy - REMOVAL OF TONSILS,<12 Y/O Tonsillectomy - TOTAL KNEE REPLACEMENT Right 07/27/2017 Dr. Deon Kline - VASECTOMY Current Outpatient Prescriptions: sertraline (ZOLOFT) 50 mg tablet Take 50 mg by mouth once daily. amLODIPine (NORVASC) 5 mg tablet Take 1 tablet by mouth once daily. For BP atenolol (TENORMIN) 100 mg tablet Take 1 tablet by mouth once daily. losartan (COZAAR) 100 mg tablet Take 1 tablet by mouth once daily. atorvastatin (LIPITOR) 10 mg tablet Take 1 tablet by mouth once daily. tamsulosin ER (FLOMAX) 0.4 mg cp24 Take 1 capsule by mouth daily at bedtime. furosemide (LASIX) 20 mg tablet Take 1-2 tablets by mouth once daily. For leg edema albuterol HFA (VENTOLIN HFA) 90 mcg/actuation inhaler Inhale 2 Puffs as instructed four times daily as needed for Wheezing/Shortness of Breath. HYDROcodone-acetaminophen (NORCO) 5-325 mg per tablet Take 1 tablet by mouth every 8 hours as needed for Pain (flank pain for kidney stone). No current facility-administered medications for this visit. 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 Uvula midline. Neck: No LAD, no thyromegaly, no meningismus. CV: RRR, no murmur, normal s1s2 Lungs: CTA b/l, no wheezing Skin: ?Erythematous ovoid skin lesion above upper left side of lip 1+ b/l leg pitting edema without ulcerations Antalgic gait, healed incision over anterior right knee ASSESSMENT/PLAN: 1. Lesion of skin of face - ICD9: 709.9, ICD10: L98.9 (primary diagnosis) - f/u with Dr. Perez, unsure if related to cyst etc. - CONSULT TO DERMATOLOGY 2. Bilateral leg edema - ICD9: 782.3, ICD10: R60.0 - start on rx as below, d/c HCTZ, f/u in office if not improved. - FUROSEMIDE 20 MG TABLET 3. Rash and nonspecific skin eruption - ICD9: 782.1, ICD10: R21 4. Chronic cough - ICD9: 786.2, ICD10: R05 - rx as below, needs to have PFTs and CT chest as d/w him and today in office, wants to pursue these through the [facility] - ALBUTEROL SULFATE HFA 90 MCG/ACTUATION AEROSOL INHALER 5. BENIGN HYPERTENSION - ICD9: 401.1, ICD10: I10 - good control - Continue current medication(s) - Recommended regular aerobic exercise. - Recommend home blood pressure monitoring, to bring results in on next visit - Discussed need and benefit for weight loss. - Goal of BP <130/80 6. Arthritis, multiple joint involvement - ICD9: 716.99, ICD10: M12.9 - stable 7. CKD (chronic kidney disease) stage 3, GFR 30-59 ml/min - ICD9: 585.3, ICD10: N18.3 - stable, f/u with Court Collections Officer 8. Hyperlipidemia, unspecified hyperlipidemia type - ICD9: 272.4, ICD10: E78.5 - suboptimal control - Encouraged following a low fat, low cholesterol diet. - Discussed the benefits of regular aerobic exercise and weight loss. 9. YOVANI (obstructive sleep apnea) - ICD9: 327.23, ICD10: G47.33 - continue CPAP 10. Vitamin D deficiency - ICD9: 268.9, ICD10: E55.9 - continue supplement Vladimir Yoon DO Return if no improvement. Follow up with Vladimir Yoon DO. Discussed risks, benefits, alternatives, and potential side effects of medications. Patient/Guardian expressed understanding and agreed with the plan. See patient instructions. Vladimir Yoon DO [address] [place] [address] CNOV Observed: 01/10/2018 Status: COMPLETED Source: [place] 11:00 AM [facility] REPOSITORY [facility] PABLITO,DOMINICK E ([id number]) 1945 M Date Time Provider Department 01/10/18 11:00 AM VLADIMIR YOON During your visit today, we recorded the following information about you: Temperature Pulse Respiration Blood pressure 97 degrees 60/minute 20/minute 124/80 Weight 137.9 kg Vladimir Mann Tyson, DO 01/10/2018 11:[address] Moustapha Perez [facility] Stop the Hydrochlorothiazide and start the Furosemide (lasix) for leg edema, can take 1-2 a day, take in the morning Michael hose vs. Compression stockings 20-30 weight strength Vladimir Mann Tyson, DO 01/12/2018 7:21 AM Signed CC: Dominick Kenney is a 72 year old male who presents to the office for 3 months follow up HPI: Previously Was seen by Dr. Blanco Urologist for abnormal renal function testing/renal US abnormality. ? Still with left skin issue above his lip with redness without pain, ?Hasn't improved with antibiotic ointment, steroid ointment or antifungal ointment ?? he has been seeing Dr. Blanco for his abnormal renal function, diagnosed with b/l renal cysts, simple per Dr. Blanco, asked for repeat studies in 1 year, no invasive biopsy needed ?? B/l knee pain and arthritis, seeing employee communications specialist Dr. Patterson, has had some injections in his knees with relief. ?Has close f/u with him. ?? Rhinnorrhea, PND by description clear and intermittent cough, mostly in AM, no obvious wheezing, has tried antihistamines in the past but cuase him to feel dry and tired. ?Non productive cough, no hemoptysis, no fevers or chills. ??Denies hx of asthma, has allergies. Year long symptoms, hasn't seen Product Marketer ?? + continued?fatigue, low normal vitamin B12, vitamin D level is only 31, doesn't take supplements at this time, normal CBC and TSH levels. ?? BLOOD PRESSURE has been well controlled but is having SE of leg edema with the amlodipine, asking for alternative options ?? B/l tingling, paresthesias in legs, worse with prolonged walking, sometimes also at rest, both legs below the knees, sometimes aching discomfort, has had normal PVR in the past (6-7 years ago), goes to chiropractor monthly for adjustments with improvements. ?Sometimes feels like lower legs are weak. ?No falls or spasms. ??He has had EMG/NCT which showed lumbar radiculopathy concerns, ?MRI confirmed this- has disc bulging throughout lumbar spine, no spinal stenosis, does have lumbar radiculopathy. ?Is getting accupuncture- starting this with some relief with Dr. Glover office ? At last OFFICE VISIT 3 months ago ? Healing well from right knee replacement in July, Is trying ot be more physically active, excited about spring weather. ? B/l leg edema, refusing to wear compression stockings, varicose veins and chronic edema. No current open sores, did have one on right larson area after scratching skin open. ? CKD, seeing Court Collections Officer, no new symptoms ? ? Glucose (mg/dL) Date Value 10/08/2017 108 Potassium (mmol/L) Date Value 10/08/2017 3.6 Sodium (mmol/L) Date Value 10/08/2017 141 Chloride (mmol/L) Date Value 10/08/2017 101 CO2 (mmol/L) Date Value 10/08/2017 28 Creatinine (mg/dL) Date Value 10/08/2017 1.51 BUN (mg/dL) Date Value 10/08/2017 22 Anion Gap (mmol/L) Date Value 10/08/2017 12 Calcium (mg/dL) Date Value 10/08/2017 9.7 Protein, Total (g/dL) Date Value 10/08/2017 7.4 Albumin (g/dL) Date Value 10/08/2017 4.1 Bilirubin, Total (mg/dL) Date Value 10/08/2017 2.3 Alkaline Phosphatase (U/L) Date Value 10/08/2017 54 AST (U/L) Date Value 10/08/2017 35 ALT (U/L) Date Value 10/08/2017 32 ? ? Hemoglobin (g/dL) Date Value 10/08/2017 13.4 Hematocrit (%) Date Value 10/08/2017 39.2 WBC (k/uL) Date Value 10/08/2017 5.77 ? ?Currently, present in office with Concerns for continued b/l leg swelling, symmetric, sometimes skin feeling tight. is taking HCTZ 12.5 mg a day. Has been seen recently in office by Dr. Blanco Urologist as well as Court Collections Officer. No new concerns urologically HTN, has been well controlled, no CP or dyspnea or dizziness/LH symptoms Skin lesion above lip on left is still present, hasn't seen Soda Fountain Operator yet, interested in seeing Dr. Perez, no personal hx of skin cancer. Chronic dry cough for months, has had normal CXR at the [facility], hasn't had a repeat CT chest or PFTs, will call [facility] to discuss further testing, no fevers or chills or hemoptysis YOVANI, use of his CPAP as prescribed, sleeping well overall PAST MEDICAL HISTORY Diagnosis Date - Aortic aneurysm (HCC) Dr. Casey - Benign neoplasm of rectum and anal canal - CKD (chronic kidney disease), stage III 07/2015 - Diverticulosis of colon (without mention of hemorrhage) Diverticulosis - Essential hypertension, benign - Family history of malignant neoplasm of gastrointestinal tract - Hyperplasia of prostate - Snoring - Thrombocytopenia (HCC) stable - Unspecified hemorrhoids without mention of complication Hemorrhoids - Unspecified sleep apnea Sleep apnea PAST SURGICAL HISTORY Procedure Laterality Date - APPENDECTOMY - COLONOSCOP W/ OR W/O [facility] SPEC 10/02/2004 Colonoscopy - COLONOSCOP W/ OR W/O [facility] SPEC 02/17/16 Colonoscopy - COLONOSCOPY W/BX 10/09/10 - PAST SURGICAL HISTORY OF right knne scope - PAST SURGICAL HISTORY OF benign tumor rt side neck - PAST SURGICAL HISTORY OF rt heel spur lt neuroma lt foot - PAST SURGICAL HISTORY OF left outter ear skin cancer removed and skin graft - REMOVAL ADENOIDS,PRIMARY,<12 Y/O Adenoidectomy - REMOVAL ADENOIDS,PRIMARY,<12 Y/O Adenoidectomy - REMOVAL OF TONSILS,<12 Y/O Tonsillectomy - TOTAL KNEE REPLACEMENT Right 07/27/2017 Dr. Deon Kline - VASECTOMY Current Outpatient Prescriptions: sertraline (ZOLOFT) 50 mg tablet Take 50 mg by mouth once daily. amLODIPine (NORVASC) 5 mg tablet Take 1 tablet by mouth once daily. For BP atenolol (TENORMIN) 100 mg tablet Take 1 tablet by mouth once daily. losartan (COZAAR) 100 mg tablet Take 1 tablet by mouth once daily. atorvastatin (LIPITOR) 10 mg tablet Take 1 tablet by mouth once daily. tamsulosin ER (FLOMAX) 0.4 mg cp24 Take 1 capsule by mouth daily at bedtime. furosemide (LASIX) 20 mg tablet Take 1-2 tablets by mouth once daily. For leg edema albuterol HFA (VENTOLIN HFA) 90 mcg/actuation inhaler Inhale 2 Puffs as instructed four times daily as needed for Wheezing/Shortness of Breath. HYDROcodone-acetaminophen (NORCO) 5-325 mg per tablet Take 1 tablet by mouth every 8 hours as needed for Pain (flank pain for kidney stone). No current facility-administered medications for this visit. 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 Uvula midline. Neck: No LAD, no thyromegaly, no meningismus. CV: RRR, no murmur, normal s1s2 Lungs: CTA b/l, no wheezing Skin: ?Erythematous ovoid skin lesion above upper left side of lip 1+ b/l leg pitting edema without ulcerations Antalgic gait, healed incision over anterior right knee ASSESSMENT/PLAN: 1. Lesion of skin of face - ICD9: 709.9, ICD10: L98.9 (primary diagnosis) - f/u with Dr. Perez, unsure if related to cyst etc. - CONSULT TO DERMATOLOGY 2. Bilateral leg edema - ICD9: 782.3, ICD10: R60.0 - start on rx as below, d/c HCTZ, f/u in office if not improved. - FUROSEMIDE 20 MG TABLET 3. Rash and nonspecific skin eruption - ICD9: 782.1, ICD10: R21 4. Chronic cough - ICD9: 786.2, ICD10: R05 - rx as below, needs to have PFTs and CT chest as d/w him and today in office, wants to pursue these through the [facility] - ALBUTEROL SULFATE HFA 90 MCG/ACTUATION AEROSOL INHALER 5. BENIGN HYPERTENSION - ICD9: 401.1, ICD10: I10 - good control - Continue current medication(s) - Recommended regular aerobic exercise. - Recommend home blood pressure monitoring, to bring results in on next visit - Discussed need and benefit for weight loss. - Goal of BP <130/80 6. Arthritis, multiple joint involvement - ICD9: 716.99, ICD10: M12.9 - stable 7. CKD (chronic kidney disease) stage 3, GFR 30-59 ml/min - ICD9: 585.3, ICD10: N18.3 - stable, f/u with Court Collections Officer 8. Hyperlipidemia, unspecified hyperlipidemia type - ICD9: 272.4, ICD10: E78.5 - suboptimal control - Encouraged following a low fat, low cholesterol diet. - Discussed the benefits of regular aerobic exercise and weight loss. 9. YOVANI (obstructive sleep apnea) - ICD9: 327.23, ICD10: G47.33 - continue CPAP 10. Vitamin D deficiency - ICD9: 268.9, ICD10: E55.9 - continue supplement Vladimir Yoon DO Return if no improvement. Follow up with Vladimir Yoon DO. Discussed risks, benefits, alternatives, and potential side effects of medications. Patient/Guardian expressed understanding and agreed with the plan. See patient instructions. Vladimir Yoon DO [address] [place] [address] Referring Provider: VLADIMIR YOON [[id number]] Allergies As of Date: 01/10/2018 Noted Allergy Reaction LISINOPRIL 10/11/2006 Comments: HEARTBURN Date Reviewed: 01/10/2018 Reviewed by: Suzy Schulz LPN - Fully Assessed Reason for Visit: Follow Up [171] Cmt: 3 months Primary Visit Diagnosis:Lesion of skin of face [L98.9] Other Visit Diagnoses:Bilateral leg edema [R60.0] Rash and nonspecific skin eruption [R21] Chronic cough [R05] BENIGN HYPERTENSION [I10] Arthritis, multiple joint involvement [M12.9] CKD (chronic kidney disease) stage 3, GFR 30-59 ml/min [N18.3] Hyperlipidemia, unspecified hyperlipidemia type [E78.5] YOVANI (obstructive sleep apnea) [G47.33] Vitamin D deficiency [E55.9] Order(s):CONSULT TO DERMATOLOGY [9006] Order #: [id number]: 1 furosemide (LASIX) 20 mg tabletTake 1-2 tablets by mouth once daily. For leg edemaDisp: 180 tabletRfl: 3 albuterol HFA (VENTOLIN HFA) 90 mcg/actuation inhalerInhale 2 Puffs as instructed four times daily as needed for Wheezing/Shortness of Breath.Disp: 2 InhalerRfl: 3 Prescriptions as of 01/10/2018 Sig: SERTRALINE 50 MG TABLET Take 50 mg by mouth once colt* AMLODIPINE 5 MG TABLET Take 1 tablet by mouth once d* ATENOLOL 100 MG TABLET Take 1 tablet by mouth once d* LOSARTAN 100 MG TABLET Take 1 tablet by mouth once d* ATORVASTATIN 10 MG TABLET Take 1 tablet by mouth once d* TAMSULOSIN 0.4 MG CAPSULE Take 1 capsule by mouth daily* FUROSEMIDE 20 MG TABLET Take 1-2 tablets by mouth onc* ALBUTEROL SULFATE HFA 90 MCG/* Inhale 2 Puffs as instructed * HYDROCODONE 5 MG-ACETAMINOPHE* Take 1 tablet by mouth every * Medication notes this encounter MUPIROCIN 2 % TOPICAL OINTMENT >> Suzy Schulz LPN 01/10/2018 10:58 AM >> SUZY SCHULZ LPN WedJanuary 10, 2018 10:58 AM Finished Problem List As Of Date 01/10/2018 Noted Resolved BENIGN HYPERTENSION [I10] INVALID FOR* Hyperlipidemia [E78.5] INVALID FOR* Benign non-nodular prostatic hyperplasia with l*INVALID FOR* PERS HX SKIN MALIGNANCY NEC [Z85.828] INVALID FOR* SLEEP APNEA NOS [G47.30] More... Unspecified hypertrophic and atrophic condition*INVALID FOR*03/19/2014 Irritated//Inflamed Seborrheic Keratoses [L82.0]INVALID FOR* Seborrheic Keratoses [L82.1] INVALID FOR* SOLAR LENTIGINES///DYSCHROMIA OTHER [L81.9] INVALID FOR*03/19/2014 NEVOCELLULAR NEVUS MOLE///BENIGN HAIDER SKIN FACE *INVALID FOR*03/19/2014 EPIDERMAL AND COMEDONAL OR SEBACEOUS CYSTS [L72*INVALID FOR*03/19/2014 ACTINIC DAMAGE//CHR SOLAR SKIN DAMAGE NOS [L57.*INVALID FOR*03/19/2014 Scar condition and fibrosis of skin [L90.5] INVALID FOR*03/19/2014 Other acne [L70.8] INVALID FOR*03/19/2014 FOLLICULITIS///HAIR DISEASES NEC [L73.8] INVALID FOR*03/19/2014 Seborrheic Dermatitis [L21.9] INVALID FOR* Nodular Elastosis with Cysts and Comedones of F*INVALID FOR* BPH (Benign Prostatic Hypertrophy) with Urinary*INVALID FOR* Aortic Aneurysm, Thoracic [I71.2] INVALID FOR* Fatty Liver [K76.0] INVALID FOR* Family history of colon cancer [Z80.0] INVALID FOR* Skin Tags//Skin Tag Papillomas INVALID FOR* Aortic aneurysm [I71.9] Family history of malignant neoplasm of gastroi*INVALID FOR* Diverticulosis of colon (without mention of hem*INVALID FOR* YOVANI (obstructive sleep apnea) [G47.33] INVALID FOR* Actinic Keratosis (Premalignant AK) [L57.0] INVALID FOR* Actinic skin damage [L57.8] INVALID FOR* Solar Lentigines [L81.4] INVALID FOR* Arthritis of right knee [M17.11] INVALID FOR* Chronic pain of right knee [M25.561, G89.29] INVALID FOR* Rash and nonspecific skin eruption [R21] INVALID FOR* CKD (chronic kidney disease) stage 3, GFR 30-59*INVALID FOR* Malaise and fatigue [R53.81, R53.83] INVALID FOR* Vitamin D deficiency [E55.9] INVALID FOR* PND (post-nasal drip) [R09.82] INVALID FOR* Skin lesion of face [L98.9] INVALID FOR* Weakness of both legs [R29.898] INVALID FOR* Paresthesia of bilateral legs [R20.2] INVALID FOR* Actinic keratoses [L57.0] INVALID FOR* Lumbosacral radiculopathy at S1 [M54.17] INVALID FOR* Lumbosacral radiculopathy at L5 [M54.17] INVALID FOR* Bilateral leg edema [R60.0] INVALID FOR* Status post right knee replacement [Z96.651] INVALID FOR* Arthritis, multiple joint involvement [M12.9] INVALID FOR* Obesity, Class III, BMI 40-49.9 (morbid obesity*INVALID FOR* Other instructions from your clinician: Dr. Moustapha Perez [facility] Stop the Hydrochlorothiazide and start the Furosemide (lasix) for leg edema, can take 1-2 a day, take in the morning Michael hose vs. Compression stockings 20-30 weight strength Prescriptions ordered this encounter Disp Refills Start End FUROSEMIDE 20 MG TABLET 180 * 3 01/10/2018 Route: ORAL Sig: Take 1-2 tablets by mouth once daily. For leg edema ALBUTEROL SULFATE HFA 90 MCG/ACTUATI* 2 In* 3 01/10/2018 Route: INHALATION Sig: Inhale 2 Puffs as instructed four times daily as needed for Wheezing/Shortness of Breath. Medications Discontinued During This Encounter Hydrochlorothiazide 12.5 mg capsule 90 c* 3 06/29/2017 01/10/2018 Route: ORAL Sig: Take 1 capsule by mouth once daily. Disc: Reason for discontinue is not on file. ketoconazole (NIZORAL) 2 % cream 30 g 1 02/26/2017 01/10/2018 Route: TOPICAL Sig: Apply 1 application to affected area once daily. Disc: Reason for discontinue is not on file. clotrimazole-betamethasone (LOTRISON* 60 g 1 10/26/2016 01/10/2018 Route: TOPICAL Sig: Apply 1 application to affected area twice daily as needed (on face). Disc: Reason for discontinue is not on file. montelukast (SINGULAIR) 10 mg tablet 30 t* 5 02/26/2017 01/10/2018 Route: ORAL Sig: Take 1 tablet by mouth daily at bedtime. Disc: Reason for discontinue is not on file. mupirocin (BACTROBAN) 2 % ointment 1 Tu* 0 09/27/2017 01/10/2018 Route: TOPICAL Sig: Apply 1 application to affected area twice daily. Disc: Reason for discontinue is not on file. Encounter Status:Closed by VLADIMIR YOON DO on 01/12/18 BASIC METABOLIC Collected: 12/27/2017 Status: F Source: [place] PROFILE ([facility]) 2:54 PM [facility] REPOSITORY TYPE CODE TESTS RESULT OUT OF RANGE REFERENCE UNITS LAB L501.0100 74-106 mg/dL Normal GLU 88 Result Comment: Please note revised GLUCOSE reference range effective 2017. LAB L501.1000 7-18 mg/dL High BUN 22 LAB L501.1100 0.70-1.30 mg/dL High CREAT,SERUM 1.51 Result Comment: The validity of the calculated GFR AND GFRAA in patients over 70 years has not been determined. Clinical correlation is essential. LAB L501.1110 >60 mL/min Low EST GFR 49 Result Comment: Non- GFR Calc LAB L501.1115 >60 mL/min Low EST GFR - AA 59 Result Comment: GFR Calc LAB L501.1300 10-20 RATIO Normal BUN/CRE 14.6 LAB L501.2200 8.5-10.1 mg/dL CA Normal 9.2 LAB L501.5300 136-145 mmol/L NA Normal 143 LAB L501.5600 3.5-5.1 mmol/L Low K 3.3 LAB L501.5900 98-107 mmol/L CL Normal 106 LAB L501.6100 21.0-32.0 mmol/L Normal CO2 30.0 LAB L501.6200 5-15 Normal GAP 7 Performed By: #### L500.2500, L501.9910 #### [facility] [address] [place], [address] PSA,TOTAL - ANNUAL Collected: 12/27/2017 Status: F Source: [place] SCREEN 2:54 PM [facility] REPOSITORY TYPE CODE TESTS RESULT OUT OF RANGE REFERENCE UNITS LAB L501.9910 0.00-4.00 ng/mL Normal PSA,TOT 2.83 SCREEN Result Comment: This test was performed using the TPSA assay method for the [employer] chemistry system. Values obtained with different assay methods cannot be used interchangably. When changing PSA assays in the course of monitoring a patient, additional sequential testing should be carried out to confirm baseline values. Performed By: #### L500.2500, L501.9910 #### [facility] [address] [place], [address] KIDNEY AND BLADDER Observed: 12/13/2017 Status: F Source: [place] 10:10 AM [facility] REPOSITORY [facility] Imaging Services [address] [facility] [place] [address] Kidney and Bladder MR#: [id number] Acct: [id number] Name: DOMINICK KENNEY Rep #: [id number] : 1945 M 72 From: Medardo Godoy MD PCP: Vladimir Caputo DO Status: REG CLI Study: Kidney and Bladder Date of Exam: 12/13/17 Exam# [id number] Ordering Dr: Krishna Blanco MD STUDY: RENAL ULTRASOUND - COMPLETE REASON FOR EXAM: Male, 72 years old. Renal cysts. TECHNIQUE: Ultrasound evaluation of the kidneys was performed with real-time and static cummins-scale imaging. COMPARISON: CT abdomen and pelvis December 01, 2016. FINDINGS: RIGHT KIDNEY: Normal location of the right kidney, which is normal in size. The right kidney measures 11.9 x 5.4 x 5.6 cm. There is a normal cortex of the right kidney. The renal cortex measures 1.5 cm. Of the cortical cysts noted by CT, only one of the anterior lower pole lesions is demonstrated here, a 2.8 x 2.5 x 2.8 cm moderately defined hypoechoic structure. There are no right renal calculi. There is no right hydronephrosis. DISTAL RIGHT URETER: There is non-visualization of the distal right ureter. There is no demonstrated right ureterovesical junction calculus. There is a visualized right ureteral jet. LEFT KIDNEY: Normal location of the left kidney, which is normal in size. The left kidney measures 12.4 x 6.0 x 5.4 cm. There is a normal cortex of the left kidney. The renal cortex measures 1.8 cm. Of the cortical cysts noted by CT, a cluster of cysts or septated, partially exophytic lower pole cyst measuring 3.8 x 4.2 x 5.9 cm is identified. There are no left renal calculi. There is no left hydronephrosis. DISTAL LEFT URETER: There is non-visualization of the distal left ureter. There is no demonstrated left ureterovesical junction calculus. There is a visualized left ureteral jet. BLADDER: The urinary bladder has a volume of 67.2 ml at the time of scanning. There is a normal wall thickness of the distended urinary bladder. There is no demonstrated mass within the urinary bladder. There are no demonstrated bladder calculi. US/Kidney and Bladder IMPRESSION: 1. Bilateral renal cortical cysts, as noted. These only represent a fraction of the numerous bilateral cortical lesions seen by CT, so future routine time interval follow-up may be more prudent with CT. 2. No hydronephrosis. Electronically Signed: Andrew Godoy MD at 17:16 EDT , Service support , CC: Vladimir Caputo DO; Krishna Blanco MD Vocational Horticulture Instructor: Signed ORTHOPEDIC VISIT Observed: 10/25/2017 Status: F Source: [place] REPORT 7:46 AM [facility] [address] [place] [id number] OFFICE VISIT Date of Service: 10/20/17 MR#: [id number] Acct: [id number] Name: DOMINICK KENNEY Rep #: [id number] : 1945 Provider: Deon Kline DO Age/Sex: 72/M Location: [facility] [place].[facility] [place] Status: Signed Intake Intake Visit Reasons: RIGHT KNEE Accompanied by: Is patient in pain?: No Allergies lisinopril Adverse Reaction (Verified 10/20/17 09:00) HEARTBURN Medications Atorvastatin Calcium 10 mg PO DAILY 07/14/17 [History Confirmed 10/20/17] Cholecalciferol (Vitamin D3) [Vitamin D3] 2,000 unit PO DAILY 07/14/17 [History Confirmed 10/20/17] Cyanocobalamin [Vitamin B12] 1,000 mcg PO DAILY@0800 07/14/17 [History Confirmed 10/20/17] Hydrochlorothiazide 12.5 mg PO DAILY 07/14/17 [History Confirmed 10/20/17] Losartan Potassium [Cozaar] 100 mg PO DAILY 07/14/17 [History Confirmed 10/20/17] [place] Vitals 1 cap PO BID 07/14/17 [History Confirmed 10/20/17] Tamsulosin HCl [Flomax] 0.4 mg PO QHS 07/14/17 [History Confirmed 10/20/17] amlodipine 5 mg tablet 5 mg PO QDAY 08/26/17 [History Confirmed 10/20/17] atenolol 100 mg tablet 100 mg PO QDAY 08/26/17 [History Confirmed 10/20/17] PFSH Medical History Hypertension (Chronic) Thoracic aortic aneurysm without rupture (Acute) Fatigue (Acute) Abnormal EKG (Acute) Hyperlipidemia (Acute) BPH (benign prostatic hyperplasia) (Acute) YOVANI (obstructive sleep apnea) (Acute) CKD (chronic kidney disease) (Chronic) Diverticulosis (Chronic) Surgical History History of tonsillectomy and adenoidectomy (Acute) History of arthroscopy of left knee (Resolved) History of foot surgery (Resolved) Hx of appendectomy (Resolved) Status post right knee replacement (Resolved) Family History Father CAD (coronary artery disease) Mother Congestive heart failure Brother CAD (coronary artery disease) Hypertension Sister CAD (coronary artery disease) Hypertension Social History Smoking Status: Former smoker alcohol intake: current substance use type: does not use HPI RIGHT KNEE: Details: DOMINICK KENNEY is a 72 year old M here today s/p right TKA DOS 07/27/17. He complains of pain only when he has been sitting for awhile, goes to stand up, takes a few steps he will have some pain but then goes away. Constant minimal swelling. He denies radiation of pain. He does still have numbness anteriorly. Frequently has clicking in the knee. Frequently the knee will give out on him, usually 3 times per day, everyday. He does not need to take anything for pain. He continues to do HEP 3 times per week. ROS Const Reports system reviewed and no additional complaints, except as docu Eyes Reports system reviewed and no additional complaints, except as docu ENT Reports system reviewed and no additional complaints, except as docu Card Reports system reviewed and no additional complaints, except as docu Resp Reports system reviewed and no additional complaints, except as docu GI Reports system reviewed and no additional complaints, except as docu Reports system reviewed and no additional complaints, except as docu Musc Reports joint pain, Reports joint swelling, Reports numbness Skin/Breast Reports system reviewed and no additional complaints, except as docu Neuro Yes numbness Psych Reports system reviewed and no additional complaints, except as docu Endo Reports system reviewed and no additional complaints, except as docu Alan/Lymph Reports system reviewed and no additional complaints, except as docu Aller/Immun Reports system reviewed and no additional complaints, except as docu Ortho Exam Right Knee Skin/Wound: Yes CDI Contralateral Normal: Yes Swelling: No Homans Sign: No 1+: Effusion Knee ROM: Yes ROM-Flexion 0-140 (0-120) Examination: No Med jt line tenderness, No Lat jt line tenderness, No TTP inf pole patella, No Crepitus, No Pain with flexion, No Pain with extention, No Maryam's Test, No Dial at 90, No Dial at 60, No Duck Walk Quad Atrophy: No Stability: NML: Posterior Drawer, NML: Valgus 0, NML: Valgus 30, NML: Varus 0, NML: Varus 30, NML: Dial 90, NML: Dial 30 Popliteal Adenopathy: No Patella Translation: 1 Apprehension with Lateral Translation: No Patellar Tilt Normal: Yes Patella Grind: No KNEE: Distally neurovascular intact. No calf pain negative Homans. Patient does have some stippling across the larson probably from some ecchymosis in the past my guess is hemosiderin deposition at this point time. Otherwise he does have a small 1+ effusion to his knee but no erythema. She did have a significant amount of synovitis at the time of his operative interventions that may just be some recurrence of that. Otherwise doing well range of motion 0 124 straight leg raise. Quad strength improving no defect site is appreciated to the superior aspect of the patella. No x-rays today. Left Knee Patella Translation: 1 Assessment AND Plan Problems 1. Orthopedic aftercare Z47.89 Plan Assessment: After orthopedic status post right total knee arthroplasty doing well. Plan: At this point time patient is doing well and is to continue to follow him. I will see him back in 3 months and get repeat radiographs of his right knee at that time to perform his serial x-rays. Otherwise patient doing well. Told to continue to work on his quad strength and I think that some of his feelings of pain when he moves up and down stairs will continue to improve. Otherwise he is doing very well. Patient is very pleased Coding Level of Care Code Global Post Op Diagnoses Orthopedic aftercare Z47.89 10/25/17 0746 <Electronically signed by Deon Kline DO> Date Deon Kline DO Cosigner Signature: Date (if applicable) CC: PROGRESS Observed: 10/12/2017 Status: COMPLETED Source: [place] 12:20 PM [facility] [place] REPOSITORY HNO ID: [id number] Author: Vladimir Yoon Service: (none) Author Type: Physician Type: Progress Notes Filed: 10/12/2017 12:28 PM Note Text: CC: Dominick Kenney is a 72 year old male who presents to the office for follow up HPI: At last OFFICE VISIT 3 months ago Was seen by Dr. Blanco Urologist for abnormal renal function testing/renal US abnormality. ? Still with left skin issue above his lip with redness without pain, Hasn't improved with antibiotic ointment, steroid ointment or antifungal ointment ?? he has been seeing Dr. Blanco for his abnormal renal function, diagnosed with b/l renal cysts, simple per Dr. Blanco, asked for repeat studies in 1 year, no invasive biopsy needed ?? B/l knee pain and arthritis, seeing employee communications specialist Dr. Patterson, has had some injections in his knees with relief. ?Has close f/u with him. ?? Rhinnorrhea, PND by description clear and intermittent cough, mostly in AM, no obvious wheezing, has tried antihistamines in the past but cuase him to feel dry and tired. ?Non productive cough, no hemoptysis, no fevers or chills. ??Denies hx of asthma, has allergies. Year long symptoms, hasn't seen Product Marketer ?? + continued fatigue, low normal vitamin B12, vitamin D level is only 31, doesn't take supplements at this time, normal CBC and TSH levels. ?? BLOOD PRESSURE has been well controlled but is having SE of leg edema with the amlodipine, asking for alternative options ?? B/l tingling, paresthesias in legs, worse with prolonged walking, sometimes also at rest, both legs below the knees, sometimes aching discomfort, has had normal PVR in the past (6-7 years ago), goes to chiropractor monthly for adjustments with improvements. ?Sometimes feels like lower legs are weak. ?No falls or spasms. He has had EMG/NCT which showed lumbar radiculopathy concerns, MRI confirmed this- has disc bulging throughout lumbar spine, no spinal stenosis, does have lumbar radiculopathy. Is getting accupuncture- starting this with some relief with Dr. Glover office Currently Healing well from right knee replacement in July, Is trying ot be more physically active, excited about spring weather. B/l leg edema, refusing to wear compression stockings, varicose veins and chronic edema. No current open sores, did have one on right larson area after scratching skin open. CKD, seeing Court Collections Officer, no new symptoms Glucose (mg/dL) Date Value 10/08/2017 108 Potassium (mmol/L) Date Value 10/08/2017 3.6 Sodium (mmol/L) Date Value 10/08/2017 141 Chloride (mmol/L) Date Value 10/08/2017 101 CO2 (mmol/L) Date Value 10/08/2017 28 Creatinine (mg/dL) Date Value 10/08/2017 1.51 BUN (mg/dL) Date Value 10/08/2017 22 Anion Gap (mmol/L) Date Value 10/08/2017 12 Calcium (mg/dL) Date Value 10/08/2017 9.7 Protein, Total (g/dL) Date Value 10/08/2017 7.4 Albumin (g/dL) Date Value 10/08/2017 4.1 Bilirubin, Total (mg/dL) Date Value 10/08/2017 2.3 Alkaline Phosphatase (U/L) Date Value 10/08/2017 54 AST (U/L) Date Value 10/08/2017 35 ALT (U/L) Date Value 10/08/2017 32 Hemoglobin (g/dL) Date Value 10/08/2017 13.4 Hematocrit (%) Date Value 10/08/2017 39.2 WBC (k/uL) Date Value 10/08/2017 5.77 PAST MEDICAL HISTORY Diagnosis Date - Aortic aneurysm (HCC) Dr. Casey - Benign neoplasm of rectum and anal canal - CKD (chronic kidney disease), stage III 07/2015 - Diverticulosis of colon (without mention of hemorrhage) Diverticulosis - Essential hypertension, benign - Family history of malignant neoplasm of gastrointestinal tract - Hyperplasia of prostate - Snoring - Thrombocytopenia (HCC) stable - Unspecified hemorrhoids without mention of complication Hemorrhoids - Unspecified sleep apnea Sleep apnea PAST SURGICAL HISTORY Procedure Laterality Date - APPENDECTOMY - COLONOSCOP W/ OR W/O [facility] SPEC 10/02/2004 Colonoscopy - COLONOSCOP W/ OR W/O [facility] SPEC 02/17/16 Colonoscopy - COLONOSCOPY W/BX 10/09/10 - PAST SURGICAL HISTORY OF right knne scope - PAST SURGICAL HISTORY OF benign tumor rt side neck - PAST SURGICAL HISTORY OF rt heel spur lt neuroma lt foot - PAST SURGICAL HISTORY OF left outter ear skin cancer removed and skin graft - REMOVAL ADENOIDS,PRIMARY,<12 Y/O Adenoidectomy - REMOVAL ADENOIDS,PRIMARY,<12 Y/O Adenoidectomy - REMOVAL OF TONSILS,<12 Y/O Tonsillectomy - TOTAL KNEE REPLACEMENT Right 07/27/2017 Dr. Deon Kline - VASECTOMY Current Outpatient Prescriptions: mupirocin (BACTROBAN) 2 % ointment Apply 1 application to affected area twice daily. amLODIPine (NORVASC) 5 mg tablet Take 1 tablet by mouth once daily. For BP atenolol (TENORMIN) 100 mg tablet Take 1 tablet by mouth once daily. Hydrochlorothiazide 12.5 mg capsule Take 1 capsule by mouth once daily. losartan (COZAAR) 100 mg tablet Take 1 tablet by mouth once daily. atorvastatin (LIPITOR) 10 mg tablet Take 1 tablet by mouth once daily. tamsulosin ER (FLOMAX) 0.4 mg cp24 Take 1 capsule by mouth daily at bedtime. ketoconazole (NIZORAL) 2 % cream Apply 1 application to affected area once daily. montelukast (SINGULAIR) 10 mg tablet Take 1 tablet by mouth daily at bedtime. clotrimazole-betamethasone (LOTRISONE) cream Apply 1 application to affected area twice daily as needed (on face). HYDROcodone-acetaminophen (NORCO) 5-325 mg per tablet Take 1 tablet by mouth every 8 hours as needed for Pain (flank pain for kidney stone). No current facility-administered medications for this visit. 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 Uvula midline. Neck: No LAD, no thyromegaly, no meningismus. CV: RRR, no murmur, normal s1s2 Lungs: CTA b/l, no wheezing Skin: Erythematous ovoid skin lesion above upper left side of lip 1+ b/l leg pitting edema without ulcerations Antalgic gait, healed incision over anterior right knee ASSESSMENT/PLAN: 1. BENIGN HYPERTENSION - ICD9: 401.1, ICD10: I10 (primary diagnosis) - good control - suboptimal control - Continue current medication(s) - Encouraged dietary sodium restriction/DASH diet - Recommended regular aerobic exercise. - Recommend home blood pressure monitoring, to bring results in on next visit - Goal of BP <130/80 2. Status post right knee replacement - ICD9: V43.65, ICD10: Z96.651 - PARKING FOR HANDICAPPED 3. Arthritis, multiple joint involvement - ICD9: 716.99, ICD10: M12.9 - PARKING FOR HANDICAPPED 4. Bilateral leg edema - ICD9: 782.3, ICD10: R60.0 - secondary to varicose veins, stable, refusing to wear compression stockings. 5. CKD (chronic kidney disease) stage 3, GFR 30-59 ml/min - ICD9: 585.3, ICD10: N18.3 - f/u with Court Collections Officer, stable 6. Lumbosacral radiculopathy at L5 - ICD9: 724.4, ICD10: M54.17 Chronic low back pain - Warm moist heat for 20 min three times a day - NSAIDS- see orders 7. YOVANI (obstructive sleep apnea) - ICD9: 327.23, ICD10: G47.33 - continue use of CPAP 8. Hyperlipidemia, unspecified hyperlipidemia type - ICD9: 272.4, ICD10: E78.5 - suboptimal control - Continue current medication. - Encouraged following a low fat, low cholesterol diet. - Discussed the benefits of regular aerobic exercise and weight loss. 9. Vitamin D deficiency - ICD9: 268.9, ICD10: E55.9 - continue supplement Vladimir Yoon DO Return if no improvement. Follow up with Vladimir Yoon DO. Discussed risks, benefits, alternatives, and potential side effects of medications. Patient/Guardian expressed understanding and agreed with the plan. See patient instructions. Vladimir Yoon DO [address] [place] [address] LIPID PANEL, NONFAST Collected: 10/08/2017 Status: F Source: [place] 9:18 AM [facility] TYPE CODE TESTS RESULT OUT OF REFERENCE UNITS RANGE LAB CHOLNF <200 mg/dL Total Cholesterol NF 116 Result Comment: <200 mg/dL, Desirable 200-239 mg/dL, Borderline high >239 mg/dL, High LAB TRIGNF <150 mg/dL Triglycerides, NF 124 Result Comment: <150 mg/dL, Normal 150-199 mg/dL, Borderline high 200-499 mg/dL, High >499 mg/dL, Very high LAB HDLNF >39 mg/dL HDL Cholesterol, NF Low 30 Result Comment: 40-59 mg/dL, Acceptable >59 mg/dL, High: Negative risk factor for coronary heart disease <40 mg/dL, Low: Positive risk factor for coronary heart disease LAB LDLNF <100 mg/dL LDL Cholesterol, NF 61 Result Comment: <100 mg/dL, Optimal 100-129 mg/dL, Near optimal/above optimal 130-159 mg/dL, Borderline high 160-189 mg/dL, High >189 mg/dL, Very high Secondary prevention optimal LDL Cholesterol levels are recommended to be < 70 mg/dL LAB NOHDLN <130 mg/dL Non HDL Chol, 86 NF Result Comment: <130 mg/dL, Optimal 130-159 mg/dL, Near optimal/above optimal 160-189 mg/dL, Borderline high 190-219 mg/dL, High >219 mg/dL, Very high Secondary prevention optimal non HDL Cholesterol levels are recommended to be < 100 mg/dL LAB VLDLNF <30 mg/dL VLDL Cholesterol, NF 25 LAB TCHDLN <5.10 mg/dL T Chol/HDL Ratio NF 3.87 LAB LDLHDN <2.54 mg/dL LDL/HDL Ratio, NF 2.03 Result Comment: Reference: 1. National Cholesterol Education Program ATP III Guideline At-A-Glance Quick Desk Reference: National Heart, Lung, and Blood [place]. National Institutes of Health. 2001: NIH Publication No. 01-3305. 2. An International Atherosclerosis Society position paper: global recommendations for the management of dyslipidemia: executive summary, Atherosclerosis. 2014: 232(2):410-413. Performed By: #### LIPNF #### [facility] [address] [place], [place] [address] CBC Collected: 10/08/2017 Status: F Source: [place] 9:17 AM [facility] REPOSITORY TYPE CODE TESTS RESULT OUT OF REFERENCE UNITS RANGE LAB WBC 3.70-11.00 k/uL WBC 5.77 LAB RBC 4.20-6.00 m/uL Low RBC 4.09 LAB HGB 13.0-17.0 g/dL Hemoglobin 13.4 LAB HCT 39.0-51.0 % Hematocrit 39.2 LAB MCV 80.0-100.0 fL MCV 95.8 LAB MCH 26.0-34.0 pG MCH 32.8 LAB MCHC 30.5-36.0 g/dL MCHC 34.2 LAB RDWCV 11.5-15.0 % RDW-CV 14.0 LAB PLTCT 150-400 k/uL Platelet Count 183 LAB MPV 9.0-12.7 fL MPV 9.4 LAB ABSNUC <0.01 k/uL Absolute nRBC <0.01 Performed By: #### CBC, CMP #### [facility] [address] [place], [place] [address] COMP METABOLIC PANEL Collected: 10/08/2017 Status: F Source: [place] 9:17 AM [facility] REPOSITORY TYPE CODE TESTS RESULT OUT OF REFERENCE UNITS RANGE LAB TP 6.3-8.0 g/dL Protein, Total 7.4 LAB ALB 3.9-4.9 g/dL Albumin 4.1 LAB CA 8.5-10.2 mg/dL Calcium, Total 9.7 LAB TBIL 0.2-1.3 mg/dL Bilirubin, High Total 2.3 LAB ALKP 36-108 U/L Alkaline Phosphatase 54 LAB AST 14-40 U/L AST 35 LAB GLU 74-99 mg/dL Glucose High 108 Result Comment: The [place] Diabetes Association (ADA) provides guidance for cutoff values for fasting glucose and random glucose. The ADA defines fasting as no caloric intake for at least 8 hours. Fas ting plasma glucose results between 100 to 125 mg/dL indicate increased risk for diabetes (prediabetes). Fasting plasma glucose results greater than or equal to 126 mg/dL meet the criteria for diagnosis of diabetes. In the absence of unequivocal hyperglycemia, results should be confirmed by repeat testing. In a patient with classic symptoms of hyperglycemia or hyperglycemic crisis, random plasma glucose results greater than or equal to 200 mg/dL meet the criteria for diagnosis of diabetes. Reference: Standards of Medical Care in Diabetes 2016, [place] Diabetes Association. Diabetes Care. 2016.39(Suppl 1). LAB BUN 9-24 mg/dL BUN 22 LAB CRET 0.73-1.22 mg/dL Creatinine High 1.51 LAB NA 136-144 mmol/L Sodium 141 LAB K 3.7-5.1 mmol/L Low Potassium 3.6 LAB CL 97-105 mmol/L Chloride 101 LAB CO2 22-30 mmol/L CO2 28 LAB AGAP 9-18 mmol/L Anion Gap 12 LAB ALT 10-54 U/L ALT 32 LAB GFRAA eGFR- Amer. 55 LAB GFRNAA . eGFR-All Other Races 46 Result Comment: eGFR (Estimated GFR) Units of measure: mL/min/1.73 meters squared eGFR is derived from the reexpressed MDRD Study equation using the following parameters: serum creatinine, age, gender and race. The creatinine assay has been calibrated to be traceable to IDMS. An eGFR <60 mL/min/1.73m2 for >3 months is consistent with chronic kidney disease. Refer to KDOQI guidelines for clinical interpretation. In patients with unstable renal function, e.g. those with acute kidney injury, the eGFR may not accurately reflect actual GFR. Performed By: #### CBC, CMP #### [facility] [address] [place], [place] [address] CNPTOUTREACH Observed: 09/28/2017 Status: COMPLETED Source: [place] 12:00 AM [facility] REPOSITORY Patient Outreach (FAMPST) DOMINICK KENNEY ([id number]) 1945 M Date Time Provider Department 09/28/17 [facility] During your visit today, we recorded the following information about you: Allergies As of Date: 09/28/2017 Noted Allergy Reaction LISINOPRIL 10/11/2006 Comments: HEARTBURN Date Reviewed: 09/27/2017 Reviewed by: Sami Garcia LPN - Fully Assessed Visit Diagnosis:Medication management [Z79.899] Order(s):LIPID PANEL, NONFASTING [SQLIPNF] Order #: [id number] FUTURE Prescriptions as of 09/28/2017 Sig: MUPIROCIN 2 % TOPICAL OINTMENT Apply 1 application to affect* AMLODIPINE 5 MG TABLET Take 1 tablet by mouth once d* ATENOLOL 100 MG TABLET Take 1 tablet by mouth once d* HYDROCHLOROTHIAZIDE 12.5 MG C* Take 1 capsule by mouth once * LOSARTAN 100 MG TABLET Take 1 tablet by mouth once d* ATORVASTATIN 10 MG TABLET Take 1 tablet by mouth once d* TAMSULOSIN 0.4 MG CAPSULE Take 1 capsule by mouth daily* KETOCONAZOLE 2 % TOPICAL CREAM Apply 1 application to affect* MONTELUKAST 10 MG TABLET Take 1 tablet by mouth daily * CLOTRIMAZOLE-BETAMETHASONE 1 * Apply 1 application to affect* HYDROCODONE 5 MG-ACETAMINOPHE* Take 1 tablet by mouth every * Problem List As Of Date 09/28/2017 Noted Resolved BENIGN HYPERTENSION [I10] INVALID FOR* Hyperlipidemia [E78.5] INVALID FOR* Benign non-nodular prostatic hyperplasia with l*INVALID FOR* PERS HX SKIN MALIGNANCY NEC [Z85.828] INVALID FOR* SLEEP APNEA NOS [G47.30] More... Unspecified hypertrophic and atrophic condition*INVALID FOR*03/19/2014 Irritated//Inflamed Seborrheic Keratoses [L82.0]INVALID FOR* Seborrheic Keratoses [L82.1] INVALID FOR* SOLAR LENTIGINES///DYSCHROMIA OTHER [L81.9] INVALID FOR*03/19/2014 NEVOCELLULAR NEVUS MOLE///BENIGN HAIDER SKIN FACE *INVALID FOR*03/19/2014 EPIDERMAL AND COMEDONAL OR SEBACEOUS CYSTS [L72*INVALID FOR*03/19/2014 ACTINIC DAMAGE//CHR SOLAR SKIN DAMAGE NOS [L57.*INVALID FOR*03/19/2014 Scar condition and fibrosis of skin [L90.5] INVALID FOR*03/19/2014 Other acne [L70.8] INVALID FOR*03/19/2014 FOLLICULITIS///HAIR DISEASES NEC [L73.8] INVALID FOR*03/19/2014 Seborrheic Dermatitis [L21.9] INVALID FOR* Nodular Elastosis with Cysts and Comedones of F*INVALID FOR* BPH (Benign Prostatic Hypertrophy) with Urinary*INVALID FOR* Aortic Aneurysm, Thoracic [I71.2] INVALID FOR* Fatty Liver [K76.0] INVALID FOR* Family history of colon cancer [Z80.0] INVALID FOR* Skin Tags//Skin Tag Papillomas INVALID FOR* Aortic aneurysm [I71.9] Family history of malignant neoplasm of gastroi*INVALID FOR* Diverticulosis of colon (without mention of hem*INVALID FOR* YOVANI (obstructive sleep apnea) [G47.33] INVALID FOR* Actinic Keratosis (Premalignant AK) [L57.0] INVALID FOR* Actinic skin damage [L57.8] INVALID FOR* Solar Lentigines [L81.4] INVALID FOR* Arthritis of right knee [M17.11] INVALID FOR* Chronic pain of right knee [M25.561, G89.29] INVALID FOR* Rash and nonspecific skin eruption [R21] INVALID FOR* CKD (chronic kidney disease) stage 3, GFR 30-59*INVALID FOR* Malaise and fatigue [R53.81, R53.83] INVALID FOR* Vitamin D deficiency [E55.9] INVALID FOR* PND (post-nasal drip) [R09.82] INVALID FOR* Skin lesion of face [L98.9] INVALID FOR* Weakness of both legs [R29.898] INVALID FOR* Paresthesia of bilateral legs [R20.2] INVALID FOR* Actinic keratoses [L57.0] INVALID FOR* Lumbosacral radiculopathy at S1 [M54.17] INVALID FOR* Lumbosacral radiculopathy at L5 [M54.17] INVALID FOR* Bilateral leg edema [R60.0] INVALID FOR* Encounter Status:Closed by EPIC, PRODUSER on 10/10/17 PROGRESS Observed: 09/27/2017 Status: COMPLETED Source: [place] 11:03 AM [facility] REPOSITORY HNO ID: [id number] Author: Chaka Bach) ZAK Nicholson Service: (none) Author Type: Nurse Practitioner Type: Progress Notes Filed: 09/27/2017 11:09 AM Note Text: HPI/CC: Dominick Kenney is a 72 year old male who presents for blister on R larson noticed this am; just started seeping; Reports chronic edema to LE. Denies injury to area, fever, chills, erythema, warmth to palpation, tenderness to palpation. ROS as above, otherwise non-contributory. Reviewed PMHx, PSHx, social Hx, medications and allergies. PHYSICAL EXAMINATION: BP 118/74 Pulse (!) 56 Resp 18 Wt (!) 139.7 kg (308 lb) BMI 41.77 kg/m2 General appearance: Well appearing, alert, in no acute distress, well-hydrated, well nourished. Skin: right larson with approximately 2cm x 1cm vesicular lesion, clear drainage noted, LE with slight edema, no erythema or tenderness. ASSESSMENT/PLAN: 1. Vesicular lesion - ICD9: 709.8, ICD10: R23.8 - MUPIROCIN 2 % TOPICAL OINTMENT - f/u if s/s of infection or if worsening Chaka Nicholson CNP PT D/C SUMMARY (1) Observed: 09/17/2017 Status: F Source: [place] [place] 12:33 PM [facility] REPOSITORY [facility] Physical Therapy [facility] [place] [address] Fax REHABILITATION SERVICES DISCHARGE SUMMARY MR#: [id number] Acct: [id number] Name: DOMINICK KENNEY Rep #: [id number] : 1945 72 From: Tre Caraballo PT, ATC Referring Dr.: Deon Kline DO Status: REG RCR Insurance: HP - PT D/C Summary It has been my pleasure to treat DOMINICK KENNEY under orders from Deon Kline DO, for the diagnosis of R TKA for a total of 14 visit(s). Discharge Date: Please see the following information for a summary of their discharge status. - Subjective Subjective: Pt reports no pain this date. Pt is ready for discharge - Pain R knee Pain Intensity (Out of 10): 0 - Objective Objective/Function: R knee pain 0/10. R knee ROM: 0-6-120 degrees. R knee Girth: 48.5 cm. R knee MMT: 5/5 throughout. Pt is I with HEP - Goals Goal 1:: Decrease R knee pain x 50% to aid with ambulation Goal Progress: Goal Met Goal 2:: Increase R knee ROM x 30 degrees to aid with restoring a more normal gait pattern Goal Progress: Goal Met Goal 3:: Increase R knee strength x 1 grade to aid with stair negotiation Goal Progress: Goal Met Goal 4:: I with HEP Goal Progress: Goal Met - Plan Plan: discharge - D/C Information If there are questions or concerns regarding this patient's physical therapy, please feel free to call me at [phone]. Thank you for the referral of this patient. Sincerely, Tre Caraballo, PT, <Electronically signed by Tre Caraballo PT, ATC> 09/17/17 1233 CC: Vladimir Yoon DO; Deon Kline DO [facility] Signed ALLERGIES ALLERGIES DATE TYPE / CODE NAME / CODE REACTION SEVERITY SOURCE 09/12/2018 Drug lisinopril/V29117 HEARTBURN Unknown [place] Allergy/416 0658(RXNORM) Community [id number]([facility] ED CT) Repository 10/11/2006 DRUG LISINOPRIL [facility] INGREDI/[address] 412362([facility] ED CT) ENCOUNTERS ENCOUNTERS ADMIT/DISCHARGE ACCOUNT ADMITTING ENCOUNTER LOCATION SOURCE NUMBER CLASS 09/12/2018/09/12/19 [id number] Ambulatory BMSBuilding:B [place] [address] [facility] Hospital Repository 09/07/2018 [id number] Ambulatory [facility] HospitalBuild Hospital ing:CT Repository 08/11/2018 [id number] Ambulatory [facility] Hospital[facility] Hospital ing:PT Repository 08/02/2018 [id number] Ambulatory [facility] HospitalBuild Hospital ing:HPRAD Repository 08/02/2018/08/02/20 [id number] Ambulatory BMSBuilding:B [place] 18 MS.[facility] Hospital Repository 04/29/2018 [id number] Ambulatory [facility] HospitalBuild Hospital ing:HPRAD Repository 04/29/2018/04/29/20 [id number] Ambulatory BMSBuilding:B [place] 18 MS.[facility] Hospital Repository 01/12/2018 [id number] Ambulatory [facility] HospitalBuild Hospital ing:HPRAD Repository 01/12/2018/01/13/20 [id number] Ambulatory BMSBuilding:B [place] 18 MS.[facility] Hospital Repository 01/10/2018/01/13/20 [id number] Ambulatory [address] Repository 12/27/2017 [id number] Ambulatory [facility] HospitalBuild Hospital ing:LAB Repository 12/13/2017 [id number] Ambulatory [facility] HospitalBuild Hospital ing:US Repository 10/20/2017/10/20/19 [id number] Ambulatory BMSBuilding:B [place] 18 MS.[facility] Hospital Repository 10/12/2017/10/14/19 [id number] Ambulatory [address] Repository 10/08/2017/10/08/19 [id number] Ambulatory [address] Repository 09/27/2017/09/27/19 [id number] Ambulatory [address] Repository 09/17/2017/09/17/19 [id number] Ambulatory [address] HospitalBuild Hospital ing:PT Repository PAYERS PAYERS ENCOUNTER GUARANTOR PAYER SUBSCRIBER SOURCE 09/12/2018 DOMINICK [id number] Insurance:MEDICARE GASSERDOB: [facility] PART A [facility] [id number] Number: Repository [address]Buk: 330 [id number] [phone] () Date:2017-08-26 09/12/2018 Secondary DOMINICK E [place] Insurance:ANTOINETTE BARROSO GASSERDOB: Community SUPPLEMENT [id number] Number: [id number] Date:6707-70-69Xikeym an [employer] [address] [address], [place] [address]HW: 09/12/2018 Tertiary NOT GIVENUNK [place] Insurance:SELF [facility]: Effective Repository Date:2018-09-08 09/07/2018 DOMINICK E Primary DOMINICK E [place] [id number] Insurance:MEDICARE GASSERDOB: Community [place] PART A [facility] [id number] [place] Number: Repository [address]Zeb: 330 [id number] [phone] () Date:2018-09-06 09/07/2018 Secondary DOMINICK E [place] Insurance:ANTOINETTE STRONGSERDOB: Community SUPPLEMENT [id number] Repository Number: [id number] Date:8043-03-55Kuuiod an [employer] [address] [address], [place] [address]DX: 09/07/2018 Tertiary NOT GIVENUNK [place] Insurance:SELF PAY [facility] Number: Effective Repository Date:2018-09-06 08/11/2018 DOMINICK E Primary DOMINICK E [place] [id number] Insurance:MEDICARE GASSERDOB: Community [place] PART A [facility] [id number] Number: Repository [address]Fmi: 330 [id number] [phone] () Date:2011-06-23 08/11/2018 Secondary DOMINICK E [place] Insurance:ANTOINETTE BARROSO GASSERDOB: Community SUPPLEMENT [id number] Repository Number: [id number] Date:9154-04-46Kweebs an [employer] Life [address] [address], [place] [address]SQ: 08/11/2018 Tertiary NOT GIVENUNK [place] Insurance:SELF PAY [facility] Number: Effective Repository Date:2018-08-02 08/02/2018 DOMINICK E Primary DOMINICK [place] [id number] Insurance:MEDICARE GASSERDOB: Community [place] PART A [facility] [id number] Number: Repository [id number]: 330 [id number] [phone] (HP) Date:2018-08-02 08/02/2018 Secondary DOMINICK E [place] Insurance:CIGNA CHIO GASSERDOB: Community SUPPLEMENT [id number] Hospital [facility] Repository Number: [id number] Date:0531-11-36Mimcwx an [employer] [address] [address], [place] [address]GY: 08/02/2018 Tertiary NOT GIVENUNK [place] Insurance:SELF PAY [facility] Number: Effective Repository Date:2018-08-02 08/02/2018 DOMINICK E Primary DOMINICK Burgos [id number] Insurance:MEDICARE GASSERDOB: Community [place] PART A [facility] [id number] Number: Repository [address]Htz: 330 [id number] [phone] () Date:2018-04-29 08/02/2018 Secondary DOMINICK E [place] Insurance:CIGNA CHIO GASSERDOB: Community SUPPLEMENT [id number] Hospital and Clinic Repository Number: [id number] Date:4635-80-65Ouuxjo an [employer] [address] [address], [place] [address]QI: 08/02/2018 Tertiary NOT GIVENUNK [place] Insurance:SELF PAY [facility] Number: Effective Repository Date:2018-07-29 04/29/2018 DOMINICK E Primary DOMINICK Kp [place] [id number] Insurance:MEDICARE GASSERDOB: Community [place] PART A [facility] [id number] Number: Repository [address]Yvw: 330 [id number] [phone] (HP) Date:2018-04-29 04/29/2018 Secondary DOMINICK E [place] Insurance:ANTOINETTE STRONGSERDOB: Community SUPPLEMENT [id number] Hospital and Clinic Repository Number: [id number] Date:9277-05-38Yfekxx an [employer] [address] [address], [place] [address]MH: 04/29/2018 Tertiary NOT GIVENUNK [place] Insurance:SELF PAY [facility] Number: Effective Repository Date:2018-04-29 04/29/2018 DOMINICK E Primary DOMINICK E [place] [id number] Insurance:MEDICARE GASSERDOB: Community [place] PART A [facility] [id number] [facility] [place] Number: Repository [address]Nor: 330 [id number] [phone] (HP) Date:2018-04-26 04/29/2018 Secondary DOMINICK E [place] Insurance:ANTOINETTE STRONGSERDOB: Community SUPPLEMENT [id number] Hospital and Clinic Repository Number: [id number] Date:5519-98-64Mmduyz an [employer] [address] [address], [place] [address]HQ: 04/29/2018 Tertiary NOT GIVENUNK [place] Insurance:SELF PAY [facility] Number: Effective Repository Date:2018-04-26 01/12/2018 DOMINICK E Primary DOMINICK Burgos [id number] Insurance:MEDICARE GASSERDOB: Community [place] PART A [facility] [id number] [facility] Number: Repository [address]Abf: 330 [id number] [phone] (HP) Date:2018-01-12 01/12/2018 Secondary DOMINICK E [place] Insurance:ANTOINETTE BARROSO GASSERDOB: Community SUPPLEMENT [id number] Hospital and Clinic Repository Number: [id number] Date:8376-03-67Wcxrqi an [employer] Life [address] [address], [place] [address]UY: 01/12/2018 Tertiary NOT GIVENUNK [place] Insurance:SELF PAY [facility] Number: Effective Repository Date:2018-01-12 01/12/2018 DOMINICK E Primary DOMINICK Burgos [id number] Insurance:MEDICARE GASSERDOB: Community [place] PART A olic [id number] Number: Repository [address]Jdc: 330 [id number] [phone] (HP) Date:2017-10-20 01/12/2018 Secondary DOMINICK E [place] Insurance:CIGNA CHIO GASSERDOB: Community SUPPLEMENT [id number] Hospital and Clinic Repository Number: [id number] Date:2540-63-70Wwuvoy an [employer] Life [address] [address], [place] [address]SG: 01/12/2018 Tertiary NOT GIVENUNK [place] Insurance:SELF PAY [facility] Number: Effective Repository Date:2018-01-12 12/27/2017 DOMINICK E Primary DOMINICK Burgos [id number] Insurance:MEDICARE GASSERDOB: Community [place] PART A [facility] [id number]. Joseph's Hospital [place] Number: Repository [address]Sfo: 330 [id number] [phone] () Date:2017-12-27 12/27/2017 Secondary DOMINICK E [place] Insurance:CIGCHARLY BARROSO GASSERDOB: Community SUPPLEMENT [id number] Hospital and Clinic Repository Number: [id number] Date:2237-10-60Abicun an Half-[employer] Life Ins[address] [address], [place] [address]BR: 12/27/2017 Tertiary NOT GIVENUNK [place] Insurance:SELF PAY [facility] Number: Effective Repository Date:2017-12-27 12/13/2017 DOMINICK E Primary DOMINICK Burgos [id number] Insurance:MEDICARE GASSERDOB: Community [place] PART A [facility] [id number]. Joseph's Hospital [place] Number: Repository [address]Mye: 330 [id number] [phone] (HP) Date:2017-11-18 12/13/2017 Secondary DOMINICK E [place] Insurance:ANTOINETTE STRONGSERDOB: Community SUPPLEMENT [id number] Hospital and Clinic Repository Number: [id number] Date:3105-65-87Oyoait an Half-[employer] Life Ins[address] [address], [place] [address]PR: 12/13/2017 Tertiary NOT GIVENUNK [place] Insurance:SELF PAY [facility] Number: Effective Repository Date:2017-11-18 10/20/2017 DOMINICK E Primary DOMINICK Kp [place] [id number] Insurance:MEDICARE GASSERDOB: Community [place] PART A [facility] [id number] Number: Repository [address]Uhq: 330 [id number] [phone] () Date:2017-09-08 10/20/2017 Secondary DOMINICK E [place] Insurance:ANTOINETTE STRONGSERDOB: Community SUPPLEMENT [id number] Hospital and Clinic Repository Number: [id number] Date:2519-81-20Zywbwn an Half-[employer] Life Ins[address] [address], [place] [address]CD: 10/20/2017 Tertiary NOT GIVENUNK [place] Insurance:SELF PAY [facility] Number: Effective Repository Date:2017-09-08 09/17/2017 DOMINICK E Primary DOMINICK Burgos [id number] Insurance:MEDICARE GASSERDOB: Community [place] PART A [facility] [id number], [place] Number: Repository [address]Zeh: 330 [id number] [phone] (HP) Date:2011-06-23 09/17/2017 Secondary DOMINICK E [place] Insurance:ANTOINETTE STRONGSERDOB: Community SUPPLEMENT [id number] Hospital and Clinic Repository Number: [id number] Date:6878-03-55Hacuoy an Half-[employer] Life Ins[address] [address], [place] [address]ND: 09/17/2017 Tertiary NOT GIVENUNK [place] Insurance:SELF PAY [facility] Number: Effective Repository Date:2017-07-29
== END ==
PROVIDERS: Family Provider Student in an Organized Health Care Education/Training Program; PCP Student in an Organized Health Care Education/Training Program; Referring Provider Orthopaedic Surgery; Visit Provider Orthopaedic Surgery
DX: M54.5 Low back pain (principal)
CPT/HCPCS: 72110

== ENCOUNTER → 2018-09-07 07:48 | Outpatient (CLI) | payer MEDICARE, OTHER, SELFPAY ==
--- NOTE | 2018-09-07 07:54 | CT_ITS ---
STUDY: CTA CHEST REASON FOR EXAM: Male, 73 years old. Follow-up for thoracic aortic aneurysm. RADIATION DOSAGE (If Supplied By Facility): CTDIvol = ( 25.04 ) mGy, DLP = ( 777.74 ) mGycm TECHNIQUE: The examination was performed with the intravenous administration of 100ml ml of Isovue 370 contrast material. Post-processing of the angiographic images was performed, with multiplanar reformation and 3D reconstruction. Individualized dose optimization techniques were used for this CT. COMPARISON: None. FINDINGS: Normal enhancement of the main pulmonary artery and right and left pulmonary arteries. Normal enhancement of the bilateral peripheral pulmonary arteries. There is no demonstrated pulmonary embolism. There is minimal aneurysmal dilatation of the ascending aorta. The transverse diameter of the ascending aorta measures 42 mm's. There is no demonstrated aortic dissection. There is ectasia and tortuosity of the thoracic aorta at the level of the diaphragmatic hiatus. There are calcifications of the coronary arteries. Normal mediastinum. Normal hilar regions. Normal visualized trachea and bronchi. The lungs are well expanded. Normal pulmonary parenchyma. Normal pleura. Normal chest wall structures. There are degenerative changes of thoracic spine. Fatty infiltration of the liver. CT/CTA Chest W/WO Contrast IMPRESSION: Minimal dilatation of the ascending thoracic aorta. Electronically Signed: Gee Leonardo MD at 14:39 EST Tel [phone], Service support ,
[2018-09-07 08:05] LABS: CREATININE FINGERSTICK 1.2 mg/dL (0.70-1.30)
--- OUTSIDE RECORDS SUMMARY | 2018-11-11 22:47 | XMS RPT_ITS ---
:1945 Author Organization OHIP Support Name Relationship Address Phone FRANCOIS KENNEY Unavailable [address] + [place] [address] R Unavailable Unavailable Unavailable PABLITO, FRANCOIS Unavailable [address] + [place] [address] R Unavailable Unavailable Unavailable PABLITO, FRANCOIS Unavailable [address] + [place] [address] R Unavailable Unavailable Unavailable PABLITO, FRANCOIS Unavailable [address] + [place] [address] R Unavailable Unavailable Unavailable PABLITO, FRANCOIS Unavailable [address] + [place] [address] R Unavailable Unavailable Unavailable PABLITO, FRANCOIS Unavailable [address] + [place] [address] R Unavailable Unavailable Unavailable PABLITO, FRANCOIS Unavailable [address] + [place] [address] R Unavailable Unavailable Unavailable PABLITO, FRANCOIS Unavailable [address] + [place] [address] R Unavailable Unavailable Unavailable PABLITO, FRANCOIS Unavailable [address] + [place] [address] R Unavailable Unavailable Unavailable PABLITO, FRANCOIS Unavailable [address] + [place] [address] R Unavailable Unavailable Unavailable PABLITO, FRANCOIS Unavailable [address] + [place] [address] R Unavailable Unavailable Unavailable PABLITO, FRANCOIS Unavailable [address] + [place] [address] R Unavailable Unavailable Unavailable Care Team Providers Name Role Phone Janessa Marin Attending Unavailable Janessa Marin Referring Unavailable Yoon, Vladimir Primary Care Unavailable Moodispaw, Shaka Attending Unavailable Moodispaw, Shaka Referring Unavailable Yoon, Vladimir Primary Care Unavailable Paras Campoverde Attending Unavailable Parsa Campoverde Referring Unavailable Yoon, Vladimir Primary Care Unavailable Paras Campoverde Attending Unavailable Yoon, Vladimir Referring Unavailable Yoon, Vladimir Primary Care Unavailable Deon Kline Attending Unavailable Deon Kline Referring Unavailable Yoon, Vladimir Primary Care Unavailable Deon Kline Attending Unavailable Yoon, Vladimir Referring Unavailable Yoon, Vladimir Primary Care Unavailable BellaKrishna Attending Unavailable Bella, Danie Referring Unavailable Yoon, Vladimir Primary Care Unavailable BellaKrishna Attending Unavailable Bella, Danie Referring Unavailable Yoon, Vladimir Primary Care Unavailable Deon Kline Attending Unavailable Yoon, Vladimir Referring Unavailable Yoon, Vladimir Primary Care Unavailable Janessa Marin Attending Unavailable Janessa Marin Referring Unavailable Yoon, Vladimir Primary Care Unavailable Janessa Marin Attending Unavailable Yoon, Vladimir Referring Unavailable Moodispaw, Shaka Attending Unavailable Yoon, Vladimir Referring Unavailable CHAKA NICHOLSON (SHOT PEENING OPERATOR) Attending Unavailable YOON, VLADIMIR L Referring Unavailable YOON, VLADIMIR L Attending Unavailable YOON, VLADIMIR L Referring Unavailable YOON, VLADIMIR L Attending Unavailable YOON, VLADIMIR L Referring Unavailable PROBLEMS PROBLEMS DATE TYPE CONDITION / CODE ATTENDING STATUS SOURCE 09/12/2018 Unknown I10 - Essential [place], Active [place] (primary) hypertension [facility] / I10(ICD-10) Hospital Repository 09/12/2018 Unknown R94.31 - Abnormal [place], Active [place] electrocardiogram [facility] [ECG] [EKG] / Hospital R94.31(ICD-10) Repository 09/12/2018 Unknown R53.83 - Other fatigue [place], Active [place] / R53.83(ICD-10) [facility] Hospital Repository 09/12/2018 Unknown I71.2 - Thoracic [place], Active [place] aortic aneurysm, [facility] without rupture / Hospital I71.2(ICD-10) Repository 09/12/2018 Unknown E78.5 - [place], Active [place] Hyperlipidemia, [facility] unspecified / Hospital E78.5(ICD-10) Repository 08/02/2018 Unknown M54.5 - Low back pain Janessa Marin Active [place] / M54.5(ICD-10) [facility] Hospital Repository 04/29/2018 Unknown M25.561 - Pain in Paras Campoverde Active [place] right knee / [facility] M25.561(ICD-10) Hospital Repository 12/13/2017 Unknown N28.1 - Cyst of Krishna Blanco Active [place] kidney, acquired / [facility] N28.1(ICD-10) Hospital Repository 02/26/2017 Active Chronic kidney NA Active [place] disease, stage 3 [facility] (moderate) / [place] N18.3(ICD-10) Repository 10/08/2017 Active Other retirement NA Active [place] (current) drug therapy [facility] / Z79.899(ICD-10) [place] Repository 09/27/2017 Active Unknown / UNK(Unknown) GIRMANOEMINAYELI, Active [place] CHAKA L (SHOT PEENING OPERATOR) [facility] [place] Repository PROCEDURES PROCEDURES No Procedure Records FoundRESULTS RESULTS CARDIOLOGY VISIT Observed: 09/12/2018 Status: F Source: [place] REPORT 11:47 AM [facility] REPOSITORY [facility] [address] [place] [address]. [address] [place] [address] OFFICE VISIT Date of Service: 09/12/18 MR#: [id number] Acct: [id number] Name: DOMINICK KENNEY Rep #: [id number] : 1945 Provider: Shaka Monroy MD Age/Sex: 73/M Location: [facility] Status: Signed HPI HPI Details: DOMINICK KENNEY, [...] DAILY 09/12/18 [History Confirmed 09/12/18] [facility] Medical History Essential hypertension (Chronic) Thoracic aortic [...] Observed: 09/12/2018 Status: F Source: [place] BY [place] 11:02 AM [facility] REPOSITORY [facility] [address] [place] [address] 12 Lead EKG performed by [place] 09/12/18 1101 MR#: [id number] Acct: [id number] Name: DOMINICK KENNEY Rep #: [id number] : 1945 73 From: Shaka Monroy MD Attending Dr: Shaka Monroy MD Status: DEP AMB Ordering Dr: Shaka Monroy MD Date: 09/12/18 Location: [facility] Sex: M C Admitted: BMS/12 Lead EKG performed by [facility] ECG Report Interpretation Sinus Bradycardia -First degree A-V block Left axis deviationPossible Left anterior fascicular block Voltage criteria for Left ventricular hypertrophy Poor R-wave progression -may be secondary to left ventricular hypertrophy; cannot excluded old anterior infarct. Abnormal Electronically signed on 09/12/2018 at 12:01 by Shaka Monroy cloudswave Software Version 8610 09/12/18 1203 Date Shaka Monroy MD CC: Vladimir Caputo DO Date Dictated: 09/12/18 1101 Date Transcribed: 09/12/181100 Manager Disaster Recovery: PM Signed CREATININE FINGERSTICK Collected: 09/07/2018 Status: F Source: [place] 8:00 AM [facility] REPOSITORY TYPE CODE TESTS RESULT OUT OF RANGE REFERENCE UNITS LAB L9100.0210 0.70-1.30 mg/dL Normal CREATININE WB 1.2 Performed By: #### L9100.0200 #### [facility] Laboratory Point of Care [address] [place] [address] CTA CHEST W/WO Observed: 09/07/2018 Status: F Source: [place] CONTRAST 7:54 AM [facility] REPOSITORY [facility] Imaging Services [address] [place] [address] CTA Chest W/WO Contrast MR#: [id number] Acct: [id number] Name: DOMINICK KENNEY Rep #: [id number] : 1945 M 73 From: Gee Leonardo MD PCP: Vladimir Caputo DO Status: REG CLI Study: CTA Chest W/WO Contrast Date of Exam: 09/07/18 Exam# [id number] Ordering Dr: Shaka Monroy MD STUDY: CTA [...] Gee Leonardo MD at 14:39 EST Tel [phone], Service support , CC: Vladimir Caputo DO; Shaka Monroy MD Manager Disaster Recovery: Signed ORTHOPEDIC VISIT Observed: 08/13/2018 Status: F Source: [place] RE[place] 4:26 PM [facility] REPOSITORY [facility] [address] [place] [address] OFFICE VISIT Date of Service: 08/02/18 MR#: [id number] Acct: [id number] Name: DOMINICK KENNEY Rep #: [id number] : 1945 Provider: Janessa Marin MD Age/Sex: 73/M Location: [facility] Status: Signed Intake Intake Visit Reasons: LOW [...] mg PO DAILY 07/14/17 [History Confirmed 10/20/17] [place] Vitals 1 cap PO BID 07/14/17 [History [...] radiating pain 3. history of right TKA 2017 4. PTSD Mr. Kenney presents with back [...] MIN 4 Observed: 08/02/2018 Status: F Source: [place] VIEWS 2:02 PM [facility] REPOSITORY [facility] Imaging Services [address] [place] [address] L/S Spine Min 4 Views MR#: [id number] Acct: [id number] Name: DOMINICK KENNEY Rep #: [id number] : 1945 M 73 From: Rufus Santiago MD PCP: Vladimir Caputo DO Status: REG CLI Study: L/S Spine Min 4 Views Date of Exam: 08/02/18 Exam# [id number] Ordering Dr: Janessa Marin MD STUDY: X-RAY [...] CC: Janessa Marin MD; Vladimir Caputo DO Manager Disaster Recovery: Signed ORTHOPEDIC VISIT Observed: 04/29/2018 Status: F Source: [place] REPORT 3:53 PM [facility] REPOSITORY [facility] Orthopa[facility] Sports Medicine [address] [place] [address] OFFICE VISIT Date of Service: 04/29/18 MR#: [id number] Acct: [id number] Name: PABLITODOMINICK Kp Rep #: [id number] : 1945 Provider: JUANA Campoverde Age/Sex: 72/M Location[place] [facility] Status: Signed Intake Intake Visit Reasons: RIGHT [...] mg PO DAILY 07/14/17 [History Confirmed 10/20/17] [place] Vitals 1 cap PO BID 07/14/17 [History [...] Route Admin Location Lot Number Expiration DateNDC Accountant Clerk 80 mg Intra-Articularleft knee [id number] 07/23/19 0238-2144-72 orderTopia Assessment AND Plan Problems 1. History of [...] mg (8 mL) Intra-Articular ONCE NSM17.12 Sami Yoder Discontinued Reason: Office Medica tion has been Documented as given Coding Level of Care Code Off vis,est,level 3 Diagnoses History of arthroplasty of right knee Z96.651 Arthritis of left knee M17.12 Additional Codes cloud physicist.knee (26398) 04/29/18 9723 <Electronically signed by Paras ARIAS> Date Paras ARIAS Cosigner Signature: Date (if applicable) CC: KNEE 4 OR MORE Observed: 04/29/2018 Status: F Source: [place] VIEWS 1:46 PM [facility] REPOSITORY [facility] Imaging Services [address] [place] [address] Knee 4 or More Views MR#: [id number] Acct: [id number] Name: DOMINICK KENNEY Rep #: [id number] : 1945 M 72 From: Leonidas Campbell MD PCP: Vladimir Caputo DO Status: REG CLI Study: Knee 4 or More Views Date of Exam: 04/29/18 Exam# [id number] Ordering Dr: Paras Campoverde STUDY: X-RAY - [...] , CC: JUANA Campoverde; Vladimir Caputo DO Manager Disaster Recovery: Signed KNEE 4 OR MORE Observed: 04/29/2018 Status: F Source: [place] VIEWS 1:43 PM [facility] REPOSITORY [facility] Imaging Services [address] [place] [address] Knee 4 or More Views MR#: [id number] Acct: [id number] Name: DOMINICK KENNEY Rep #: [id number] : 1945 M 72 From: Leonidas Campbell MD PCP: Vladimir Caputo DO Status: REG CLI Study: Knee 4 or More Views Date of Exam: 04/29/18 Exam# [id number] Ordering Dr: Paras Campoverde STUDY: X-RAY - [...] , CC: JUANA Campoverde; Vladimir Caputo DO Manager Disaster Recovery: Signed ORTHOPEDIC VISIT Observed: 02/06/2018 Status: F Source: [place] REPORT 8:51 PM [facility] REPOSITORY [facility] Orthopaedics AND Sports Medicine [facility] [address] [place], [place] [address] OFFICE VISIT Date of Service: 01/12/18 MR#: [id number] Acct: [id number] Name: DOMINICK KENNEY Rep #: [id number] : 1945 Provider: Deon Kline DO Age/Sex: 72/M Location: [facility] Status: Signed Intake Intake Visit Reasons: right [...] mg PO DAILY 07/14/17 [History Confirmed 10/20/17] [place] Vitals 1 cap PO BID 07/14/17 [History [...] for his surveillance x-rays with our physician museum assistant Avery. However if there is an [...] MORE Observed: 01/12/2018 Status: F Source: [place] XAVIER 9:21 AM [facility] REPOSITORY [facility] Imaging Services [address] [place] [address] [place] [address] Knee 4 or More Views MR#: [id number] Acct: [id number] Name: DOMINICK KENNEY Rep #: [id number] : 1945 M 72 From: Gee Leonardo MD PCP: Vladimir Caputo DO Status: REG CLI Study: Knee 4 or More Views Date of Exam: 01/12/18 Exam# [id number] Ordering Dr: Deon Kline DO STUDY: X-RAY [...] Gee Leonardo MD at 13:49 EDT Tel [phone], Service support , CC: Vladimir Caputo DO; Deon Kline DO Manager Disaster Recovery: Signed PROGRESS Observed: 01/10/2018 Status: COMPLETED Source: [place] 12:07 PM [facility] REPOSITORY [facility] ID: [id number] Author: Vladimir Yoon Service: (none) Author Type: [...] ?? B/l knee pain and arthritis, seeing desktop specialist Dr. Patterson, has had some injections [...] has allergies. Year long symptoms, hasn't seen Electrolytic Etcher ?? + continued?fatigue, low normal vitamin B12, [...] after scratching skin open. ? CKD, seeing Software Verification Engineer, no new symptoms ? ? Glucose (mg/dL) [...] by Dr. Blanco Urologist as well as Software Verification Engineer. No new concerns urologically HTN, has been well controlled, no CP or dyspnea or dizziness/LH symptoms Skin lesion above lip on left is still present, hasn't seen Kennel Keeper yet, interested in seeing Dr. Perez, no personal hx of skin cancer. Chronic dry cough for months, [facility] hasn't [facility] a repeat CT chest or PFTs, will call [place] to discuss further testing, no fevers or [...] office, wants to pursue these through the [place] - ALBUTEROL SULFATE HFA 90 MCG/ACTUATION AEROSOL [...] 585.3, ICD10: N18.3 - stable, f/u with Software Verification Engineer 8. Hyperlipidemia, unspecified hyperlipidemia type - ICD9: [...] plan. See patient instructions. Vladimir Yoon DO [address] [place] [address] CNOV Observed: 01/10/2018 Status: COMPLETED Source: [place] 11:00 AM [facility] REPOSITORY Office Visit (FAMPWS) DOMINICK KENNEY ([id number]) 1945 M Date Time Provider Department 01/10/18 11:00 AM VLADIMIR YOON During your visit today, we recorded the following information about you: Temperature Pulse Respiration Blood pressure 97 degrees 60/minute 20/minute 124/80 Weight 137.9 kg Vladimir Yoon DO 01/10/2018 11:[address] Moustapha Perez [facility] [address] Stop the Hydrochlorothiazide and start the Furosemide [...] ?? B/l knee pain and arthritis, seeing desktop specialist Dr. Patterson, has had some injections [...] has allergies. Year long symptoms, hasn't seen Electrolytic Etcher ?? + continued?fatigue, low normal vitamin B12, [...] after scratching skin open. ? CKD, seeing Software Verification Engineer, no new symptoms ? ? Glucose (mg/dL) [...] by Dr. Blanco Urologist as well as Software Verification Engineer. No new concerns urologically HTN, has been well controlled, no CP or dyspnea or dizziness/LH symptoms Skin lesion above lip on left is still present, hasn't seen Kennel Keeper yet, interested in seeing Dr. Perez, no personal hx of skin cancer. Chronic dry cough for months, [place], hasn't had a repeat CT chest or PFTs, [place] to discuss further testing, no fevers or [...] - APPENDECTOMY - COLONOSCOP W/ OR W/O [facility] SPEC 10/02/2004 Colonoscopy - COLONOSCOP W/ OR W/O [facility] SPEC 02/17/16 Colonoscopy - COLONOSCOPY W/BX [...] office, [place] through [place] - ALBUTEROL SULFATE HFA 90 MCG/ACTUATION AEROSOL [...] 585.3, ICD10: N18.3 - stable, f/u with Software Verification Engineer 8. Hyperlipidemia, unspecified hyperlipidemia type - ICD9: [...] plan. See patient instructions. Vladimir Yoon DO [address] [place] [address] Referring Provider: VLADIMIR YOON [[id number]] Allergies As of Date: 01/10/2018 Noted Allergy [...] [E55.9] Order(s):CONSULT TO DERMATOLOGY [9006] Order #: [id number]: 1 furosemide (LASIX) 20 mg tabletTake 1-2 [...] instructions from your clinician: Dr. Moustapha Perez [facility] Stop the Hydrochlorothiazide and start the [...] BASIC METABOLIC Collected: 12/27/2017 Status: F Source: [place] PROFILE (BMP) 2:54 PM [facility] REPOSITORY TYPE CODE TESTS RESULT OUT [...] [facility] [address] [place], [address] PSA,TOTAL - ANNUAL Collected: 12/27/2017 Status: F Source: [place] SCREEN 2:54 PM [facility] REPOSITORY TYPE CODE TESTS RESULT OUT OF RANGE REFERENCE UNITS LAB L501.9910 0.00-4.00 ng/mL Normal PSA,TOT 2.83 SCREEN Result Comment: This test was performed using the TPSA assay method for the Art of Click chemistry system. Values obtained with different assay methods cannot be used interchangably. When changing PSA assays in the course of monitoring a patient, additional sequential testing should be carried out to confirm baseline values. Performed By: #### L500.2500, L501.9910 #### [facility] [address] [place], [address] KIDNEY AND BLADDER Observed: 12/13/2017 Status: F Source: [place] 10:10 AM [facility] REPOSITORY [facility] Imaging Services [address] [facility] [place] [address] Kidney and Bladder MR#: [id number] Acct: [id number] Name: DOMINICK KENNEY Rep #: [id number] : 1945 M 72 From: Medardo Godoy MD PCP: Vladimir Caputo DO Status: REG CLI Study: Kidney and Bladder Date of Exam: 12/13/17 Exam# [id number] Ordering Dr: Krishna Blanco MD STUDY: RENAL [...] CC: Vladimir Caputo DO; Krishna Blanco MD Manager Disaster Recovery: Signed ORTHOPEDIC VISIT Observed: 10/25/2017 Status: F Source: [place] REPORT 7:46 AM [facility] REPOSITORY [facility] Orthopaedics AND Sports Medicine [address] [place] [address] OFFICE VISIT Date of Service: 10/20/17 MR#: [id number] Acct: [id number] Name: DOMINICK KENNEY Rep #: [id number] : 1945 Provider: Deon Kline DO Age/Sex: 72/M Location: [facility] Status: Signed Intake Intake Visit Reasons: RIGHT [...] mg PO DAILY 07/14/17 [History Confirmed 10/20/17] [place] Vitals 1 cap PO BID 07/14/17 [History Confirmed 10/20/17] Tamsulosin HCl [Flomax] 0.4 mg PO QHS 07/14/17 [History Confirmed 10/20/17] amlodipine 5 mg tablet 5 mg PO QDAY 08/26/17 [History Confirmed 10/20/17] atenolol 100 mg tablet 100 mg PO QDAY 08/26/17 [History Confirmed 10/20/17] [facility] Medical History Hypertension (Chronic) Thoracic aortic aneurysm [...] CC: PROGRESS Observed: 10/12/2017 Status: COMPLETED Source: [place] 12:20 PM [facility] REPOSITORY O ID: [id number] Author: Vladimir Yoon Service: (none) Author Type: [...] ?? B/l knee pain and arthritis, seeing desktop specialist Dr. Patterson, has had some injections [...] has allergies. Year long symptoms, hasn't seen Electrolytic Etcher ?? + continued fatigue, low normal vitamin [...] area after scratching skin open. CKD, seeing Software Verification Engineer, no new symptoms Glucose (mg/dL) Date Value [...] - APPENDECTOMY - COLONOSCOP W/ OR W/O [facility] SPEC 10/02/2004 Colonoscopy - COLONOSCOP W/ OR W/O [facility] SPEC 02/17/16 Colonoscopy - COLONOSCOPY W/BX [...] ICD9: 585.3, ICD10: N18.3 - f/u with Software Verification Engineer, stable 6. Lumbosacral radiculopathy at L5 - [...] plan. See patient instructions. Vladimir Yoon DO [address] [place] [address] LIPID PANEL, NONFAST Collected: 10/08/2017 Status: F Source: [place] 9:18 AM [facility] REPOSITORY TYPE CODE TESTS RESULT OUT OF [...] Desk Reference: National Heart, Lung, and Blood [place]. National Institutes of Health. 2001: NIH Publication No. 01-3305. 2. An International Atherosclerosis Society position paper: global recommendations for the management of dyslipidemia: executive summary, Atherosclerosis. 2014: 232(2):410-413. Performed By: #### LIPNF #### [facility] [address] [place], [place] [address] CBC Collected: 10/08/2017 Status: F Source: [place] 9:17 AM [facility] REPOSITORY TYPE CODE TESTS RESULT OUT [...] <0.01 Performed By: #### CBC, CMP #### [facility] [place], [place] [address] COMP METABOLIC PANEL Collected: 10/08/2017 Status: F Source: [place] 9:17 AM [facility] REPOSITORY TYPE CODE TESTS RESULT OUT OF REFERENCE UNITS RANGE LAB TP 6.3-8.0 g/dL Protein, Total 7.4 LAB ALB 3.9-4.9 g/dL Albumin 4.1 LAB CA 8.5-10.2 mg/dL Calcium, Total 9.7 LAB TBIL 0.2-1.3 mg/dL Bilirubin, High Total 2.3 LAB ALKP 36-108 U/L Alkaline Phosphatase 54 LAB AST 14-40 U/L AST 35 LAB GLU 74-99 mg/dL Glucose High 108 Result Comment: The [place] Diabetes Association (ADA) provides guidance for cutoff [...] Standards of Medical Care in Diabetes 2016, [place] Diabetes Association. Diabetes Care. 2016.39(Suppl 1). LAB [...] GFR. Performed By: #### CBC, CMP #### [facility] [address] [place], [place] [address] CNPTOUTRARNOLDO Observed: 09/28/2017 Status: COMPLETED Source: [place] 12:00 AM [facility] REPOSITORY Patient Outreach (FAMPST) DOMINICK KENNEY ([id number]) 1945 M Date Time Provider Department 09/28/17 VLADIMIR YOON During your visit today, we recorded the following information about you: Allergies As of Date: 09/28/2017 Noted Allergy Reaction LISINOPRIL 10/11/2006 Comments: HEARTBURN Date Reviewed: 09/27/2017 Reviewed by: Sami Garcia LPN - Fully Assessed Visit Diagnosis:Medication management [Z79.899] Order(s):LIPID PANEL, NONFASTING [SQLIPNF] Order #: [id number] FUTURE Prescriptions as of 09/28/2017 Sig: MUPIROCIN [...] 10/10/17 PROGRESS Observed: 09/27/2017 Status: COMPLETED Source: [place] 11:03 AM [facility] REPOSITORY [facility] ID: [id number] Author: Chaka Mann (Zak) ZAK Nicholson Service: (none) Author Type: Nurse [...] infection or if worsening Chaka Nicholson CNP ALLERGIES ALLERGIES DATE TYPE / CODE NAME / CODE REACTION SEVERITY SOURCE 09/12/2018 Drug lisinopril/[id number] HEARTBURN Unknown [place] Allergy/416 0658(RXNORM) [facility] [address]1953([facility] ED CT) Repository 10/11/2006 DRUG LISINOPRIL [facility] [facility] 584652([facility] Repository ED CT) ENCOUNTERS ENCOUNTERS ADMIT/DISCHARGE ACCOUNT ADMITTING ENCOUNTER LOCATION SOURCE NUMBER CLASS 09/12/2018/09/12/19 [id number] Ambulatory BMSBuilding:B [place] [address] [place] Repository 09/07/2018 [id number] Ambulatory [facility] ing:CT Repository 08/11/2018 [id number] Ambulatory [facility] ing:PT Repository 08/02/2018 [id number] Ambulatory [facility] ing:HPRAD Repository 08/02/2018/08/02/20 [id number] Ambulatory BMSBuilding:B [place] [address] [place] Repository 04/29/2018 [id number] Ambulatory [facility] ing:HPRAD Repository 04/29/2018/04/29/20 [id number] Ambulatory BMSBuilding:B [place] [address] [place] Repository 01/12/2018 [id number] Ambulatory [facility] ing:HPRAD Repository 01/12/2018/01/13/20 [id number] Ambulatory BMSBuilding:B [place] [address] [place] Repository 01/10/2018/01/13/20 [id number] Ambulatory [address] Repository 12/27/2017 [id number] Ambulatory [facility] ing:LAB Repository 12/13/2017 [id number] Ambulatory [facility] ing:US Repository 10/20/2017/10/20/19 [id number] Ambulatory BMSBuilding:B [place] [address] [place] Repository 10/12/2017/10/14/19 [id number] Ambulatory [address] Repository 10/08/2017/10/08/19 [id number] Ambulatory [address] Repository 09/27/2017/09/27/19 [id number] Ambulatory [address] Repository PAYERS PAYERS ENCOUNTER GUARANTOR PAYER SUBSCRIBER SOURCE 09/12/2018 DOMINICK [facility] DOMINICK Burgos [id number] Insurance:MEDICARE GASSERDOB: Community MORTEZA PART A BPolicy [id number], [place] Number: Repository [address]Idz: [phone] [id number] [phone] () Date:2017-08-26 09/12/2018 Secondary DOMINICK Burgos [facility] GASSERDOB: Community SUPPLEMENT [id number] [facility] Number: [id number] Date:3045-93-75Vcwhah an [facility] Life [address] [address], [place] [address]LL: 09/12/2018 Tertiary NOT GIVENUNK [place] Insurance:SELF PAY [facility] Number: Effective Repository Date:2018-09-08 09/07/2018 DOMINICK E Primary DOMINICK Burgos [id number] Insurance:MEDICARE GASSERDOB: Community MORTEZA PART A [facility] [id number], [place] Number: Repository [id number]: 330 [id number] [phone] () Date:2018-09-06 09/07/2018 Secondary DOMINICK E [place] Insurance:CIGNA MCR GASSERDOB: Community SUPPLEMENT [id number] [facility] Number: [id number] Date:9730-20-12Ckfkei an [facility] Life [address] [address], [place] [address]SJ: 09/07/2018 Tertiary NOT GIVENUNK [place] Insurance:SELF PAY [facility] Number: Effective Repository Date:2018-09-06 08/11/2018 DOMINICK E Primary DOMINICK Burgos [id number] Insurance:MEDICARE GASSERDOB: Community MORTEZA PART A [facility] [id number], [place] Number: Repository [address]Nie: 330 [id number] [phone] () Date:2011-06-23 08/11/2018 Secondary DOMINICK E [place] Insurance:CIGNA MCR GASSERDOB: Community SUPPLEMENT [id number] [facility] Number: [id number] Date:7358-78-61Xvjwmi an [facility] Life [address] [address], [place] [address]NC: 08/11/2018 Tertiary NOT GIVENUNK Loretta Insurance:SELF PAY [facility] Number: Effective Repository Date:2018-08-02 08/02/2018 DOMINICK E Primary DOMINICK Burgos [id number] Insurance:MEDICARE GASSERDOB: Community MORTEZA PART A [facility] [id number], [place] Number: Repository [id number]: 330 [id number] [phone] (HP) Date:2018-08-02 08/02/2018 Secondary DOMINICK E Loretta Insurance:ANTOINETTE STRONGSERDOB: Community SUPPLEMENT [id number] Regional Medical [facility] Repository Number: [id number] Date:1985-20-10Iiqtus an [facility] Life [address] [address], [place] [address]VG: 08/02/2018 Tertiary NOT GIVENUNK [place] Insurance:SELF PAY [facility] Number: Effective Repository Date:2018-08-02 08/02/2018 DOMINICK E Primary DOMINICK E [place]alante [id number] Insurance:MEDICARE GASSERDOB: Community MORTEZA PART A [facility] [id number] General Hospital [place] Number: Repository [id number]: 330 [id number] [phone] (HP) Date:2018-04-29 08/02/2018 Secondary DOMINICK E Loretta Insurance:ANTOINETTE STRONGSERDOB: Community SUPPLEMENT [id number] Regional [facility] Rep[facility] Number: [id number] Date:1945-73-25Pftfup an [facility] Life [address] [address], [place] [address]UW: 08/02/2018 Tertiary NOT GIVENUNK Loretta Insurance:SELF PAY [facility] Number: Effective Repository Date:2018-07-29 04/29/2018 DOMINICK E Primary DOMINICK E Escalante [id number] Insurance:MEDICARE GASSERDOB: Community MORTEZA PART A [facility] [id number], [place] Number: Repository [address]Rqw: 330 [id number] [phone] (HP) Date:2018-04-29 04/29/2018 Secondary DOMINICK E Loretta Insurance:ANTOINETTE STRONGSERDOB: Community SUPPLEMENT [id number] Regional Medical Center[facility] Repository Number: [id number] Date:0325-78-04Pqfltc an [facility] Life [address] [address], [place] [address]KE: 04/29/2018 Tertiary NOT GIVENUNK Loretta Insurance:SELF PAY [facility] Number: Effective Repository Date:2018-04-29 04/29/2018 DOMINICK E Primary DOMINICK Burgos [id number] Insurance:MEDICARE GASSERDOB: Community MORTEZA PART A [facility] [id number] [facility] [place] Number: Repository [address]Urt: 330 [id number] [phone] (HP) Date:2018-04-26 04/29/2018 Secondary DOMINICK E Escalante Insurance:CIGNA CHIO GASSERDOB: Community SUPPLEMENT [id number] Regional Medical Center–[facility] Repository Number: [id number] Date:7127-08-86Pmxoja an [facility] Life [address] [address], [place] [address]FW: 04/29/2018 Tertiary NOT GIVENUNK [place] Insurance:SELF PAY [facility] Number: Effective Repository Date:2018-04-26 01/12/2018 DOMINICK E Primary DOMINICK Kp Burgos [id number] Insurance:MEDICARE GASSERDOB: Community MORTEZA PART A [facility] [id number], [place] Number: Repository [address]Vkc: 330 [id number] [phone] () Date:2018-01-12 01/12/2018 Secondary DOMINICK E Escalante Insurance:CIGNA CHIO GASSERDOB: Community SUPPLEMENT [id number] Regional Medical Center[facility] Repository Number: [id number] Date:2345-66-02Bmpfty an [facility] Life [address] [address], [place] [address]BR: 01/12/2018 Tertiary NOT GIVENUNK Loretta Insurance:SELF PAY [facility] Number: Effective Repository Date:2018-01-12 01/12/2018 DOMINICK E Primary DOMINICK Kp Burgos [id number] Insurance:MEDICARE GASSERDOB: Community MORTEZA PART A [facility] [id number] General Hospital [place] Number: Repository [id number]: 330 [id number] [phone] (HP) Date:2017-10-20 01/12/2018 Secondary DOMINICK E Loretta Insurance:ANTOINETTE STRONGSERDOB: Community SUPPLEMENT [id number] Regional Medical Center–[facility] Repository Number: [id number] Date:2385-62-26Qqrvsp an [facility] Life [address] [address], [place] [address]GA: 01/12/2018 Tertiary NOT GIVENUNK [place] Insurance:SELF PAY [facility] Number: Effective Repository Date:2018-01-12 12/27/2017 DOMINICK E Primary DOMINICK E [place]alante [id number] Insurance:MEDICARE GASSERDOB: Community MORTEZA PART A [facility] [id number], [place] Number: Repository [phone]: 330 [id number] [phone] (HP) Date:2017-12-27 12/27/2017 Secondary DOMINICK E Escalante Insurance:ANTOINETTE STRONGSERDOB: Community SUPPLEMENT [id number] Regional Medical Center[facility] Repository Number: [id number] Date:6710-27-99Wdymit an [facility] Life [address] [address], [place] [address]KB: 12/27/2017 Tertiary NOT GIVENUNK [place] Insurance:SELF PAY [facility] Number: Effective Repository Date:2017-12-27 12/13/2017 DOMINICK E Primary DOMINICK Burgos [id number] Insurance:MEDICARE GASSERDOB: Community MORTEZA PART A [facility] [id number], [place] Number: Repository [id number]: 330 [id number] [phone] (HP) Date:2017-11-18 12/13/2017 Secondary DOMINICK E Escalante Insurance:ANTOINETTE BARROSO GASSERDOB: Community SUPPLEMENT [id number] Regional Medical Center[facility] Repository Number: [id number] Date:3958-14-98Hkzmcf an [facility] Life [address] [address], [place] [address]TJ: 12/13/2017 Tertiary NOT GIVENUNK Loretta Insurance:SELF PAY [facility] Number: Effective Repository Date:2017-11-18 10/20/2017 DOMINICK [facility] DOMINICK Burgos [id number] Insurance:MEDICARE GASSERDOB: Community MORTEZA PART A BPolicy [id number], [place] Number: Repository [address]Ewy: [phone] [id number] [phone] () Date:2017-09-08 10/20/2017 Secondary DOMINICK Burgos Insurance:CIGNA MCR GASSERDOB: Community SUPPLEMENT [id number] Regional Medical Center–[facility] Repository Number: [id number] Date:6157-05-01Olvnlu an [facility] Life [address] [address], [place] [address]EK: 10/20/2017 Tertiary NOT GIVENUNK [place] Insurance:SELF PAY [facility] Number: Effective Repository Date:2017-09-08
== END ==
PROVIDERS: Family Provider Student in an Organized Health Care Education/Training Program; PCP Student in an Organized Health Care Education/Training Program; Referring Provider Internal Medicine Cardiovascular Disease; Visit Provider Internal Medicine Cardiovascular Disease
DX: I71.2 Thoracic aortic aneurysm, without rupture (principal); E78.5 Hyperlipidemia, unspecified; I10 Essential (primary) hypertension
CPT/HCPCS: 71275; Q9967

== ENCOUNTER → 2018-09-22 06:26 | Outpatient (CLI) | payer MEDICARE, OTHER, SELFPAY ==
[2018-09-12 10:53] VITALS: BMI 41.8
--- NOTE | 2018-09-22 19:46 | STRESSREP ---
Stress Test Report Date: 09/22/2018 Procedure: Pharmacologic stress nuclear imaging study Indications: Shortness of breath/dyspnea; chest pain; thoracic aortic aneurysm Consent: Per the patient Procedure: The patient underwent pharmacologic (regadenoson) evaluation with a peak heart rate of 74 beats per minute (50% predicted maximal heart rate) with a peak blood pressure of 140/84 mmHg. The baseline ECG demonstrated sinus bradycardia with nonspecific T-wave abnormality. The peak pharmacological ECG demonstrated no obvious ECG changes. There were no cardiac dysrhythmias pretest, during pharmacologic infusion, or recovery. The patient had no complaint of chest discomfort during pharmacologic infusion or recovery. The examination was discontinued secondary to completion of protocol. Impression: 1. Pharmacologic (regadenoson) evaluation 2. Peak pharmacologic ECG with no obvious ECG changes 3. No cardiac dysrhythmias pretest, during pharmacologic infusion, or recovery 4. Nuclear images pending Myocardial perfusion imaging study: Technique: The patient was injected with 15.0 mci of technetium-99m Cardiolite and subsequently rest SPECT Cardiolite nuclear imaging was obtained in the horizontal long, vertical long, and short axis views. The patient underwent pharmacologic (regadenoson) evaluation with a peak heart rate of 74 beats per minute (50% predicted maximal heart rate) with a peak blood pressure of 140/84 mmHg. The patient was injected with 44.6 mci of technetium 99 M Cardiolite and subsequently stress SPECT Cardiolite nuclear imaging was obtained in the horizontal long, vertical long, and short axis views. A gated Cardiolite study at peak stress was obtained. Interpretation: Rest and stress SPECT Cardiolite nuclear imaging status post realignment, normalization, and attenuation correction demonstrates the appearance of relative uniform tracer uptake and myocardial perfusion appearing within normal limits. There is end systolic thickening and brightening. The gated Cardiolite study demonstrates myocardial thickening and inward wall motion. The reported LVEF is 68%. Impression: 1. Rest and stress SPECT Cardiolite nuclear imaging demonstrates relative uniform tracer uptake and myocardial perfusion appearing within normal limits. 2. The gated Cardiolite study reports an LVEF of 68%. This note was generated using a voice recognition system and there may be incorrect words, spelling or punctuation that were not noted when reviewing the office note prior to saving.
== END ==
PROVIDERS: Family Provider Student in an Organized Health Care Education/Training Program; PCP Student in an Organized Health Care Education/Training Program; Referring Provider Internal Medicine Cardiovascular Disease; Visit Provider Internal Medicine Cardiovascular Disease
DX: R06.02 Shortness of breath (principal); E78.5 Hyperlipidemia, unspecified; I10 Essential (primary) hypertension; I71.2 Thoracic aortic aneurysm, without rupture; R53.83 Other fatigue; R94.31 Abnormal electrocardiogram [ECG] [EKG]
CPT/HCPCS: 78452; 93017; A9500; A4216; J2785

== ENCOUNTER → 2018-12-26 | Outpatient (CLI) | payer MEDICARE, OTHER, SELFPAY ==
[2018-12-22 16:07] VITALS: BMI 42.5
== END | disposition home or self-care (01) ==
LOC: PSN 10:51
PROVIDERS: Family Provider Student in an Organized Health Care Education/Training Program; PCP Student in an Organized Health Care Education/Training Program; Referring Provider Internal Medicine Cardiovascular Disease; Visit Provider Internal Medicine Cardiovascular Disease
DX: R00.2 Palpitations (principal)
CPT/HCPCS: 93225; 93226

== ENCOUNTER → 2019-01-02 09:26 | Outpatient (CLI) | payer MEDICARE, OTHER, SELFPAY ==
[2018-12-22 16:07] VITALS: BMI 42.5
[2019-01-02 10:33] LABS: Anion Gap 3 (5-15); BUN 19 mg/dL (7-18); BUN/Creat Ratio 12.7 RATIO (10-20); Calcium,Total 8.8 mg/dL (8.5-10.1); Chloride 105 mmol/L (98-107); EST Glomerular Filtration Rate 49 mL/min (>60); Est Glom Filt Rate - Afr Amer 59 mL/min (>60); Glucose 115 mg/dL (74-106); Sodium Level 140 mmol/L (136-145)
== END ==
PROVIDERS: Family Provider Student in an Organized Health Care Education/Training Program; PCP Student in an Organized Health Care Education/Training Program; Referring Provider Internal Medicine Cardiovascular Disease; Visit Provider Internal Medicine Cardiovascular Disease
DX: E87.6 Hypokalemia (principal)
CPT/HCPCS: 36415; 80048

== ENCOUNTER → 2019-01-05 | Outpatient (CLI) | payer MEDICARE, OTHER, SELFPAY ==
[2018-12-22 16:07] VITALS: BMI 42.5
[2019-01-05 13:10] LABS: PSA,Total - Annual Screen 3.04 ng/mL (0.00-4.00)
== END | disposition home or self-care (01) ==
LOC: LAB 11:32
PROVIDERS: Family Provider Student in an Organized Health Care Education/Training Program; PCP Student in an Organized Health Care Education/Training Program; Referring Provider Urology; Visit Provider Urology
DX: Z12.5 Encounter for screening for malignant neoplasm of prostate (principal)
CPT/HCPCS: 36415; 84153; G0103

== ENCOUNTER 2019-01-10 08:27 | Day surgery (SDC) | payer MEDICARE, OTHER, SELFPAY ==
[2018-12-22 16:07] VITALS: BMI 42.5
--- NOTE | 2018-12-22 18:46 | HP_ITS ---
HPI HPI Surgical H&P: Yes Details: This is a 73-year-old white male who presents today for outpatient cardiovascular follow-up. He states his main concerns at this time are his progressive shortness of breath and dyspnea especially with exertional activity. He does not recall associated chest discomfort other than that sensation of the shortness of breath and dyspnea. There is been no separate nausea, emesis, or diaphoretic events. There has been no near syncope or syncope. He also notes palpitations. He states these have been occurring recently. They occur daily. He feels a skipped beat. Then he feels a strange sensation up into his left neck and jaw area. As you know he is undergone cardiovascular evaluation earlier this year. This included a pharmacologic stress nuclear imaging study which was thought to be negative for any evidence of inducible myocardial ischemia. He also had a chest CT scan which demonstrated a stable ascending thoracic aortic aneurysm at approximately 4.2 cm. He had a follow-up ECG today. He was in sinus rhythm with a left axis deviation and left anterior fascicular block with voltage criteria concerning for LVH and an anteroseptal KS pattern of indeterminate age could not be excluded. 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 Accompanied by: Allergies lisinopril Adverse Reaction (Verified 12/22/18 16:07) HEARTBURN Medications Atorvastatin Calcium 10 mg PO DAILY 07/14/17 [History Confirmed 12/22/18] Cholecalciferol (Vitamin D3) [Vitamin D3] 2,000 unit PO DAILY 07/14/17 [History Confirmed 12/22/18] Hydrochlorothiazide 12.5 mg PO DAILY 07/14/17 [History Confirmed 12/22/18] Losartan Potassium [Cozaar] 100 mg PO DAILY 07/14/17 [History Confirmed 12/22/18] Tamsulosin HCl [Flomax] 0.4 mg PO QHS 07/14/17 [History Confirmed 12/22/18] amlodipine 5 mg tablet 5 mg PO QDAY 08/26/17 [History Confirmed 12/22/18] atenolol 100 mg tablet 100 mg PO QDAY 08/26/17 [History Confirmed 12/22/18] omega-3 fatty acids 1,000 mg capsule 1,000 mg PO DAILY 09/12/18 [History Confirmed 12/22/18] sertraline 50 mg tablet 50 mg PO DAILY 09/12/18 [History Confirmed 12/22/18] aspirin 81 mg tablet,delayed release 81 mg PO DAILY #90 tab 12/22/18 [Rx Confirmed 12/22/18] clopidogrel 75 mg tablet 75 mg PO DAILY #30 tab 12/22/18 [Rx Confirmed 12/22/18] [facility] Medical History Essential hypertension (Chronic) Thoracic aortic aneurysm without rupture (Chronic) Fatigue (Acute) Abnormal EKG (Acute) Hyperlipidemia (Chronic) BPH (benign prostatic hyperplasia) (Acute) YOVANI (obstructive sleep apnea) (Acute) CKD (chronic kidney disease) (Chronic) Diverticulosis (Chronic) Surgical History History of tonsillectomy and adenoidectomy (Acute) History of arthroscopy of left knee (Resolved) History of foot surgery (Resolved) Hx of appendectomy (Resolved) Status post right knee replacement (Resolved) Family History Father CAD (coronary artery disease) Mother Congestive heart failure Brother CAD (coronary artery disease) Hypertension Sister CAD (coronary artery disease) Hypertension Social History Smoking Status: Former smoker alcohol intake: current substance use type: does not use ROS Const Const: Positive for fatigue (increased) and weakness (increased); negative for frequent falls, excessive sweating, weight gain or weight loss Eyes Eyes: Negative for transient loss of vision, blurry vision or change in vision ENT ENT: Negative for dizziness or balance problems Cardio Chest Pain: No Palpitations: Yes (daily) feels like its: skipping Edema: None Muscle aches with walking: None Resp Respiratory: Positive for SOB with activity (increased); negative for SOB at rest GI GI: Negative vomiting or vomiting blood/hematemesis : Negative for hematuria Musc Musc: Positive for muscle aches/ myalgia (bilat LE knees down); negative for muscle weakness, joint pain or balance problems Skin Skin: Negative non-healing lesions or rash Neuro Neuro: Positive for weakness (increased); negative for dizziness, lightheadedness, orthostatic symptoms, frequent falls or blurry vision Alan Hematologic/Lymphatic: Negative for easy bleeding Endo Endo: Positive for fatigue (increased); negative for excessive sweating Psych Psych: Negative for anxiety or depression Allergy Allergy/Immunology: Negative for hives, Negative for rash Cardiology Exam Const Appearance: cooperative, healthy appearing, comfortable, no acute distress, well developed and well groomed Nutritional Appearance: obese and overweight Orientation: alert, awake and oriented x3 Head Head: normal to inspection, normocephalic and atraumatic Ears: hearing grossly normal bilaterally Nose: external nose normal Face and Sinus: face symmetric Mouth: oral mucosae normal Eyes General: appearance normal, both eyes and all related structures Eyelids: eyelids normal Pupils: PERRL EOM: EOM intact bilaterally Neck Neck: normal visual inspection and full ROM Carotids: normal carotid upstroke Chest Chest inspection: normal inspection of the chest, symmetric chest movement and normal respiratory effort Auscultation: Bilateral: Clear to Auscultation Tender to palpation near the left aerola / nipple area Cardio Palpation: normal PMI Rate: regular rate Rhythm: regular rhythm Heart sounds: S1 normal and S2 normal GI GI: obese Neuro General: alert, awake and oriented x3 Skin Skin: no rashes or lesions noted Extremities Pulses: Normal: Right Radial Pulse, Left Radial Pulse Lower Extremity Edema: None: Bilateral, Trace: Right Musculoskel Musculoskeletal: joint tenderness Psych Psychological: normal affect Assessment & Plan 1. Angina pectoris I20.9 Plan At the present time the patient describes symptoms with respect to exertional dyspnea appearing compatible with an angina pectoris equivalent. He has undergone noninvasive evaluation in the past. He has never undergone invasive evaluation to evaluate his coronary anatomy. At the present time based upon his ongoing symptoms, despite his unremarkable pharmacologic stress nuclear imaging study, it was felt the patient should be considered for further cardiovascular evaluation of his coronary anatomy with a diagnostic cardiac catheterization. The procedure and risks were discussed with him. He was agreeable to this approach. In the interim he will initiate medical therapy with aspirin and clopidogrel/Plavix. Orders Orders: 12 Lead EKG performed by BMS Today Basic Metabolic Profile (BMP) Today T4 Total, Thyroxin Today Thyroid Stim Hormone (TSH) Today CBC-Complete Blood Cnt No Diff Today Chest PA and Lateral Today Left Heart Cath/COR/LV Percut Today 2. Palpitations R00.2 Plan He does have a history of palpitations. He has not been diagnosed in the past with underlying cardiac ectopy during his previous noninvasive studies. He will undergo a 24-hour Holter monitor, as his symptoms occur daily, in an attempt to correlate his symptoms with his underlying cardiac rhythm, etc. In the meantime he will continue his beta-zafar therapy. Orders Orders: 12 Lead EKG performed by BMS Today Cardiac Holter Monitor, Set-Up Today Basic Metabolic Profile (BMP) Today T4 Total, Thyroxin Today Thyroid Stim Hormone (TSH) Today CBC-Complete Blood Cnt No Diff Today Chest PA and Lateral Today 3. Dyspnea on exertion R06.09 Plan Again he has exertional dyspnea. It is otherwise unexplained, other than potentially being related to his body habitus, etc. Thus from a cardiac standpoint he will undergo further evaluation and care as described above. Orders Orders: 12 Lead EKG performed by BMS Today Basic Metabolic Profile (BMP) Today T4 Total, Thyroxin Today Thyroid Stim Hormone (TSH) Today CBC-Complete Blood Cnt No Diff Today Chest PA and Lateral Today 4. Essential hypertension I10 Plan He will continue medical management. Orders Orders: 12 Lead EKG performed by BMS Today Basic Metabolic Profile (BMP) Today T4 Total, Thyroxin Today Thyroid Stim Hormone (TSH) Today CBC-Complete Blood Cnt No Diff Today Chest PA and Lateral Today 5. Hyperlipidemia, unspecified hyperlipidemia type E78.5 Plan He will continue risk factor evaluation and care as deemed appropriate. Orders Orders: 12 Lead EKG performed by BMS Today Basic Metabolic Profile (BMP) Today T4 Total, Thyroxin Today Thyroid Stim Hormone (TSH) Today CBC-Complete Blood Cnt No Diff Today Chest PA and Lateral Today 6. Thoracic aortic aneurysm without rupture I71.2 Plan His thoracic aortic aneurysm was evaluated earlier this year. The results are as noted above. He will continue to be followed. Orders Orders: 12 Lead EKG performed by BMS Today Basic Metabolic Profile (BMP) Today T4 Total, Thyroxin Today Thyroid Stim Hormone (TSH) Today CBC-Complete Blood Cnt No Diff Today Chest PA and Lateral Today Plan Detail Other Medications New: aspirin 81 mg PO DAILY 90 tabs 0RF clopidogrel (Plavix) 75 mg PO DAILY 30 tabs 3RF Additional Comments The above was discussed with the patient and his spouse. He was agreeable to this approach. Thank you for allowing us to participate in the patients plan of care, if you have any questions please do not hesitate to call. This note was generated with [employer] dictation software. It may contain incorrect words, spelling, and punctuation that were not noted in checking the note before signing. Follow Up 6 Months (6-9 Months as scheduled PFM) Coding Level of Care Code Off vis,est,level 5 Diagnoses Angina pectoris I20.9 Palpitations R00.2 Dyspnea on exertion R06.09 Essential hypertension I10 Hyperlipidemia, unspecified hyperlipidemia type E78.5 ??Hyperlipidemia type: unspecified Thoracic aortic aneurysm without rupture I71.2 Coding Level of Care Code Off vis,est,level 5 Diagnoses Angina pectoris I20.9 Palpitations R00.2 Dyspnea on exertion R06.09 Essential hypertension I10 Hyperlipidemia, unspecified hyperlipidemia type E78.5 ??Hyperlipidemia type: unspecified Thoracic aortic aneurysm without rupture I71.2 Supplemental Info Supplemental Information Transthoracic echocardiogram: 07-29-17 Interpretation Summary The estimated ejection fraction is 65 %. Stage 1 diastolic dysfunction. Trivial mitral valve insufficiency. Mild (1+) tricuspid valve insufficiency. Right ventricular systolic pressure estimated to be 45 mmHg. Mild pulmonary hypertension. Compared to echo report dated 12/31/2009, LV Function has remained the same, but RVSP has increased from 32 to 45 mm Hg. Stress Test Report Date: 09/22/2018 Procedure: Pharmacologic stress nuclear imaging study Indications: Shortness of breath/dyspnea; chest pain; thoracic aortic aneurysm Consent: Per the patient Procedure: The patient underwent pharmacologic (regadenoson) evaluation with a peak heart rate of 74 beats per minute (50% predicted maximal heart rate) with a peak blood pressure of 140/84 mmHg. The baseline ECG demonstrated sinus bradycardia with nonspecific T-wave abnormality. The peak pharmacological ECG demonstrated no obvious ECG changes. There were no cardiac dysrhythmias pretest, during pharmacologic infusion, or recovery. The patient had no complaint of chest discomfort during pharmacologic infusion or recovery. The examination was discontinued secondary to completion of protocol. Impression: 1. Pharmacologic (regadenoson) evaluation 2. Peak pharmacologic ECG with no obvious ECG changes 3. No cardiac dysrhythmias pretest, during pharmacologic infusion, or recovery 4. Nuclear images pending Myocardial perfusion imaging study: Technique: The patient was injected with 15.0 mci of technetium-99m Cardiolite and subsequently rest SPECT Cardiolite nuclear imaging was obtained in the horizontal long, vertical long, and short axis views. The patient underwent pharmacologic (regadenoson) evaluation with a peak heart rate of 74 beats per minute (50% predicted maximal heart rate) with a peak blood pressure of 140/84 mmHg. The patient was injected with 44.6 mci of technetium 99 M Cardiolite and subsequently stress SPECT Cardiolite nuclear imaging was obtained in the horizontal long, vertical long, and short axis views. A gated Cardiolite study at peak stress was obtained. Interpretation: Rest and stress SPECT Cardiolite nuclear imaging status post realignment, normalization, and attenuation correction demonstrates the appearance of relative uniform tracer uptake and myocardial perfusion appearing within normal limits. There is end systolic thickening and brightening. The gated Cardiolite study demonstrates myocardial thickening and inward wall motion. The reported LVEF is 68%. Impression: 1. Rest and stress SPECT Cardiolite nuclear imaging demonstrates relative uniform tracer uptake and myocardial perfusion appearing within normal limits. 2. The gated Cardiolite study reports an LVEF of 68%. Chest CT scan: 09-07-2018: Impression: Minimal dilatation of the ascending thoracic aorta Labs LDL Cholesterol 45 mg/dL (0-130) 10/15/14 HDL Cholesterol 29 mg/dL (40-) L 10/15/14 Triglycerides 158 mg/dL (0-199) 10/15/14 VLDL Cholesterol 32 mg/dL (5-40) 10/15/14 Diagnostics Electrocardiogram 12/22/18 Stress Test Nuclear Medicine 09/22/18 Stress Test 09/22/18 Chest X-Ray 07/28/17 12/22/18 [id number] <Electronically signed by Shaka Monroy MD> Date Shaka Monroy MD I have re-examined the patient. There are no clinical changes since date of exam. I have re-examined the patient. There are no clinical changes since date of exam.
[2018-12-26 11:51] LABS: Hemoglobin 14.5 g/dl (13.0-16.5); Mean Corp Hgb Conc 34.5 g/gl (32-36); Mean Corpuscular Hgb 32.8 pg (27.0-32.0); Mean Platelet Vol. 9.4 fl (6.2-12.0); Platelet Count 131 K/mm3 (150-450); RBC Distribution Width CV 13.5 % (11.6-14.6); RBC Distribution Width SD 46.5 fl (35.1-43.9); Red Blood Count 4.42 M/mm3 (4.6-6.2); White Blood Count 6.7 K/mm3 (4.4-11.0)
[2018-12-26 11:52] LABS: Scan Indicated on CBC? Y/N NO
[2018-12-26 12:32] LABS: Anion Gap 2 (5-15); BUN 24 mg/dL (7-18); BUN/Creat Ratio 16.3 RATIO (10-20); Calcium,Total 8.8 mg/dL (8.5-10.1); Chloride 104 mmol/L (98-107); Creatinine, Serum 1.47 mg/dL (0.70-1.30); EST Glomerular Filtration Rate 50 mL/min (>60); Est Glom Filt Rate - Afr Amer 61 mL/min (>60); Glucose 106 mg/dL (74-106); Potassium 3.2 mmol/L (3.5-5.1); Sodium Level 139 mmol/L (136-145); T4 Total, Thyroxin 8.8 ug/dL (4.5-12.1); Thyroid Stim Hormone (TSH) 1.72 uIU/mL (0.358-3.74)
[2019-01-09 14:18] VITALS: BMI 42.5
--- NOTE | 2019-01-10 13:56 | CL.D_ITS ---
Patient Name: DOMINICK KENNEY Study Date: 01/10/2019 Performing: Shaka Monroy MD Ht: 72.04 inches 183 cm : 1945 Wt: 313.06 lbs 142 kg Age: 73 Gender: male BSA: 2.58 PROCEDURE(S) PERFORMED [id number]-XTU/COR/LV CLINICAL PROFILE AND INDICATIONS Indications: Suspected CAD Heart Failure: None Stress/Imaging Date: 09/22/2018Stress Test with SPECT MPI: Negative Angina Classification Anginal Classification w/in 2 Weeks: CCS III CAD Presentations: Other: dyspnea on exertion / angina pectoris equivalent CONCLUSIONS Elevated Left Ventricular End Diastolic Pressure Normal LV size, wall motion,and systolic function LVEF: by LV gram 55 % [place] Multivessel CAD Aortic Root Aneurysm Thoracic aortic evaluation as deemed appropriate RECOMMENDATIONS Risk factor modification Medical therapy DESCRIPTION OF PROCEDURE The patient arrived to the procedure lab. The risks and benefits of the procedure as well as a full d escription of our services here and current unavailability of surgical backup were fully explained to the patient and/or their significant other prior to the catheterization. The Timeout was completed, verifying the correct patient and procedure. The patient's procedural site was prepped and draped in the usual fashion. Local anesthetic was given subcutaneously to right radial region with Lidocaine 2% . Using a modified Seldinger technique, arterial access was obtained via the right radial artery, a 6 Fr sheath was inserted. Right Coronary Artery selective angiography was then performed in multiple v iews using a 5 Fr. 4.0 Davenport catheter. Left Coronary Artery selective angiography was performed in mu ltiple views using a 5 Fr. JL 5 catheter. Left Ventriculography was performed in LEIJA projection using a 5 Fr. Pigtail catheter. LV to AO pullback pressures were then recorded.The arterial sheath was pulled and a TR Band was applied for hemostasis CORONARY ANGIOGRAPHY DOMINANCE: Right Dominant LEFT HEART ASSESSMENT Left Ventricular Ejection Fraction: by LV Gram 55 % Normal LV wall motion Elevated Left Ventricular End Diastolic Pressure LVEDP: 28 mmHg LEFT MAIN: Mild luminal irregularities LEFT ANTERIOR DESCENDING ARTERY: PROX LAD: Mild calcification, eccentric: 25 - 50 % Stenosis MID LAD: diffuse 10 - 25 % Stenosis DISTAL LAD: Mild luminal irregularities CIRCUMFLEX ARTERY: Mild luminal irregularities RIGHT CORONARY ARTERY: Mild luminal irregularities diffuse 10 - 25 % Stenosis PROX RCA: eccentric 25 % Stenosis AORTIC ROOT: Aneurysm COMPLICATIONS No Complications PROCEDURE MEDICATIONS Fentanyl 50 mcg IV Versed 1 mg IV Oxygen: 2 L/min via nasal cannula SUMMARY OF HEMODYNAMIC DATA Time AIR REST ECG 08:59:54 ECG 12:57:46 AO 114/79 (96) SA 13:14:05 AO 111/79 (93) 13:14:24 LV 145/16, 29 13:25:37 LV 144/12, 28 13:25:43 LV 147/12, 32 13:27:02 LVp 148/10, 33 13:27:08 AOp 149/86 (114) 13:27:13 Signed By Shaka Monroy MD On 01/10/2019 13:55:25 Shaka Monroy MD
== END 2019-01-10 16:08 | disposition home or self-care (01) ==
LOC: CLSP 08:28
PROVIDERS: Family Provider Student in an Organized Health Care Education/Training Program; PCP Student in an Organized Health Care Education/Training Program; Referring Provider Internal Medicine Cardiovascular Disease; Visit Provider Internal Medicine Cardiovascular Disease
DX: I25.119 Atherosclerotic heart disease of native coronary artery with unspecified angina pectoris (principal); R00.2 Palpitations; R06.09 Other forms of dyspnea; I12.9 Hypertensive chronic kidney disease with stage 1 through stage 4 chronic kidney disease, or unspecified chronic kidney disease; N18.9 Chronic kidney disease, unspecified; E78.5 Hyperlipidemia, unspecified; I71.2 Thoracic aortic aneurysm, without rupture; Z79.82 Long term (current) use of aspirin; Z79.899 Other long term (current) drug therapy; Z87.891 Personal history of nicotine dependence
CPT/HCPCS: 36415; 80048; 84436; 84443; 85027; 93458; 99152; 99153; J7040; Q9967; C1769; C1894

== ENCOUNTER → 2019-02-09 | Outpatient (CLI) | payer MEDICARE, OTHER, SELFPAY ==
[2019-01-09 14:18] VITALS: BMI 42.5
[2019-02-09 13:44] LABS: Anion Gap 3 (5-15); BUN 21 mg/dL (7-18); Calcium,Total 8.8 mg/dL (8.5-10.1); Chloride 104 mmol/L (98-107); EST Glomerular Filtration Rate 49 mL/min (>60); Est Glom Filt Rate - Afr Amer 59 mL/min (>60); Glucose 107 mg/dL (74-106); Potassium 3.7 mmol/L (3.5-5.1); Sodium Level 140 mmol/L (136-145)
== END | disposition home or self-care (01) ==
LOC: LAB 11:29
PROVIDERS: Family Provider Student in an Organized Health Care Education/Training Program; PCP Student in an Organized Health Care Education/Training Program; Referring Provider Internal Medicine Cardiovascular Disease; Visit Provider Internal Medicine Cardiovascular Disease
DX: I10 Essential (primary) hypertension (principal); I25.10 Atherosclerotic heart disease of native coronary artery without angina pectoris; I71.2 Thoracic aortic aneurysm, without rupture
CPT/HCPCS: 36415; 80048

== ENCOUNTER → 2019-09-13 14:38 | Outpatient (CLI) | payer MEDICARE, OTHER, SELFPAY ==
[2019-01-09 14:18] VITALS: BMI 42.5
--- NOTE | 2019-09-13 14:40 | CT_ITS ---
STUDY: CTA CHEST REASON FOR EXAM: Male, 74 years old. THORACIC AORTIC ANEURYSM EVAL RADIATION DOSAGE (If Supplied By Facility): CTDIvol = ( 22.88 ) mGy, DLP = ( 1254.57 ) mGycm TECHNIQUE: The examination was performed with the intravenous administration of 75ML ISOVUE 370. Post-processing of the angiographic images was performed, with multiplanar reformation and 3D reconstruction. Individualized dose optimization techniques were used for this CT. COMPARISON: 09/07/2018 FINDINGS: Normal enhancement of the main pulmonary artery and right and left pulmonary arteries. Normal enhancement of the bilateral peripheral pulmonary arteries. There is no demonstrated pulmonary embolism. Normal thoracic aorta and visualized great vessels. There is no demonstrated aortic dissection. Normal heart and pericardium. Normal mediastinum. Normal hilar regions. Normal visualized trachea and bronchi. The lungs are well expanded. Normal pulmonary parenchyma. Normal pleura. Normal chest wall structures. Normal osseous structures. No change in a 3 cm exophytic cyst of the midsection the right kidney. CT/CTA Chest W/WO Contrast IMPRESSION: Normal CTA chest examination, without a demonstrated pulmonary embolism or arterial dissection. Electronically Signed: Rufus Harper MD at 8:32 EST Tel , Service support ,
[2019-09-13 14:51] LABS: CREATININE FINGERSTICK 1.9 mg/dL (0.70-1.30)
== END ==
PROVIDERS: PCP Student in an Organized Health Care Education/Training Program; Referring Provider Internal Medicine Cardiovascular Disease; Visit Provider Internal Medicine Cardiovascular Disease
DX: I71.2 Thoracic aortic aneurysm, without rupture (principal); I25.10 Atherosclerotic heart disease of native coronary artery without angina pectoris
CPT/HCPCS: 71275; Q9967

== ENCOUNTER → 2020-02-05 13:58 | Outpatient (CLI) | payer MEDICARE, OTHER, SELFPAY ==
[2019-09-21 11:20] VITALS: BMI 41.9
[2020-02-05 15:35] LABS: PSA,Total - Annual Screen 3.29 ng/mL (0.00-4.00)
== END ==
PROVIDERS: PCP Student in an Organized Health Care Education/Training Program; Referring Provider Urology; Visit Provider Urology
DX: Z12.5 Encounter for screening for malignant neoplasm of prostate (principal)
CPT/HCPCS: 36415; 84153; G0103

== ENCOUNTER 2020-02-06 11:30 | Outpatient (RCR) | payer MEDICARE, OTHER, SELFPAY ==
[2019-09-21 11:20] VITALS: BMI 41.9
--- NOTE | 2019-10-30 12:21 | HP.PTEVAL_ITS ---
Patient's Visit Information DOIMNICK KENNEY is a 74 year old M referred to Physical Therapy by Vladimir Mehta DO with a diagnosis of BACK AND LEG PAIN. Date of Evaluation: 10/30/19 Physical Therapist: Patricia Lopez PT, Cert MDT - Visit Plan Frequency: 2-3x /Week Duration: 4-6 Weeks Plan: POSTURE CORRECTION/STRENGTHENING, INSTRUCTION IN APPROPRIATE BODY MECHANICS AND ACTIVITY MODIFICATIONS. DLS STARTING WITH A NEUTRAL SPINE PROGRESSING ROM TOLERATED. ANA LE ROM, STRETCHING AND STRENGTHENING. HEP INSTRUCTION. - Subjective Subjective: Work/Leisure: RETIRED. Present symptoms: CENTRAL AND RIGHT LOW BACK PAIN AND RIGHT THIGH PAIN. TAILBONE PAIN. RIGHT LATERAL KNEE NUMBNESS SINCE TKR JUL 2017 - OTHERWISE NO LE NUMBESS OR TINGLING. Present since: CHRONIC LBP. RIGHT THIGH PAIN STARTED AFTER RIGHT TKR 2016. Pain Scale: WORST 8/10, LEAST 0/10. Currently: 0/10. UNCHANGING. Commenced as a result of: NO APPARENT REASON OTHER THAN KNEE SX. Symptoms at onset: LOW BACK. Worse: STANDING, WORKING, WALKING - RIGHT THIGH GIVES OUT. SITTING IN CHAIRS OTHER THAN FAVORITE CHAIR AT HOME. TRANSITIONING FROM SIT TO STAND WHEN NOT AT HOME. CARDIOGLIDER > 20 MIN DUE TO TAILBONE PAIN. STEPS. Better: SITTING IN CHAIR AT HOME, ALEVE. Disturbed sleep: NO. Previous history/Previous treatment: PHYSICAL THERAPY. CHIROPRACTOR ONCE A MONTH FOR AT LEAST 5 YEARS. H/O CHIROPRACTOR FOREVER. ACCUPUNCTURE. NO BACK SURGERY. NO BACK INJECTIONS. Coughing/sneezing/straining: NEGATIVE. Gait: DISTANCE AND TIME LIMITED. CAN'T WALK FAST. HAS TO WALK SLOW AND DELIBERATE. CAN GO A MILE BUT NEEDS A WALKING STICK (NOT A CANE). RIGHT THIGH INTERMITTENTLY GIVES OUT. 2 FALLS IN THE LAST MONTH - LEANING OVER TRIMMING SHRUB ON HILL AND LOST BALANCE. STEPPING OVER A DOG GAIT RIGHT FOOT CAUGHT AND HE WENT DOWN ANOTHER TIME. DIFFICULTY INTIATING GAIT AFTER SITTING. Difficulty initiating urinatin: NO. Accidents: UNREMARKABLE. Unexplained weight loss: NO. Imaging: JUL 2018 BACK X-RAY: Mild S-shaped sclerotic curvature of the lumbar spine. Osteopenia. Lower ribs, upper medial pelvis and sacrum unremarkable. Mild symmetric degenerative features of the SI joints. Normal vertebral body height and alignment. Preserved lordosis. Mild disc narrowing is present at multiple levels between T10 and L4, with. no significant disc narrowing at L4-L5 or L5-S1. There is mild mid to low lumbar facet arthropathy/hypertrophy. In the extended position, there is no evidence of vertebral body. subluxation or eccentric disc space narrowing. In the flexed position, there is no evidence of vertebral body subluxation. or eccentric disc space narrowing. PMH: AORTIC ANEURYSM, HTN. Recent major surgery: JUN 2019 CARDIAC CATH EXAM. OTHER: STATES HE CAN'T GET DOWN ON THE FLOOR AND WHEN HE FELL HE COULDN'T GET UP AND THAT REALLY BOTHERS HIM. DECREASED FUNCTION SINCE TKR 2016. PATIENT HAS A POOL AT HOME. PATIENT REPORTS DR. ESTEVEZ AND DR. TREJO TOLD HIM HE HAS 3 OPTIONS: TKR, REPLACE PAD I N KNEE OR DO NOTHING. PATIENT REPORTS HE REFUSES SURGERY AND WANTS TO TRY PT AGAIN. - Objective Sitting/Standing Posture: POOR. Lordosis: REDUCEDActive Correction of posture: Other Observations: NE. Motor deficit: ANA LE STRENGTH GROSSLY 5/5 WITH MM'TING EXCEPT. Sensory deficit: DECREASED LIGHT TOUCH SENSATION RIGHT LATERAL KNEE REGION. ROM deficit: TIGHT ANA LE HS'S AND GASTROC SOLEUS COMPLEX'S. Reflexes: NT. Dural Signs: NEGATIVE ANA LE'S. Lumbar mvmt loss: flex - MOD. ext - YASIR. R SG - YASIR. L SG - YASIR. Core strength: POOR. Palpation: NO ACUTE TENDERNESS WITH PALPATION OF THE LUMBOSACRAL, HIP OR KNEE REGIONS. TREATMENT: NEUROMUSCULAR REEDUCATION - RETRAINING OF MVMT AND POSTURE FOR SITTING, LYING AND STANDING ACTIVITIES. - Goals Goal 1:: DECREASE C/O BACK AND RIGHT LE SX'S. Goal Time Frame: 4-6 Weeks Goal 2:: IMPROVE PERSONAL CARE, LIFTING, WALKING, SITTING, STANDING, SOCIAL LIFE, TRAVE AND HOMEMAKING FUNCTION. Goal Time Frame: 4-6 Weeks Goal 3:: INSTRUCT IN PROPHYLAXIS Goal Time Frame: 4-6 Weeks - Anticipated Interventions Patient/Client Instruction: Educate patient on: Condition, Plan of Care, Risk Factors, Benefits of Fitness Program For the Purpose of:: To improve self management Therapeutic Exercise to Include: Strength training, Body mechanics, Postural training, Flexibilty training, Neuromotor development, In an aquatic setting, Dynamic Lumbar Stabilization For the Purpose of:: To decrease pain, To improve muscle performance and motor function, To increase tolerance to activity/condition/position, To improve ability of physical actions for home/community/work/leisure, To improve gait and locomotor functions Thank you for the opportunity to evaluate your patient. For Medicare and Medicare HMO plans, please review the plan of care and approve it. It will need to be FAXED BACK to us at [phone] for Medicare purposes. For Medicare only, by signing this I certify the plan of care. Please let me know if there are questions or concerns regarding this plan of care. Physician Si gnature: Date:
--- NOTE | 2020-01-02 12:45 | HP.PTREVAL ---
Dr. Vladimir Mehta, DO, It has been my pleasure to treat DOMINICK KENNEY over the last 2 visits for BACK AND LEG PAIN. Please see the progress note below for an update on the physical therapy plan of care! Subjective: PATIENT REPORTS HE IS ABOUT THE SAME. HE REPORTS VERY CHRONIC LOW BACK PAIN AND RIGHT LEG PAIN WITH KNEE INTERMITTENTLY GIVING OUT SINCE RIGHT TKR IN 2017. PATIENT REPORTS HE STOPPED COMING BEFORE DUE TO THE VIRUS. Objective/Function: PATIENT WAS SEEN TODAY FOR RE-ASSESSMENT OF PROGRESS TOWARD THE SET PT GOALS AND THE NEED FOR FURTHER PHYSICAL THERAPY VS READINESS FOR DISCHARGE. UPON EXAM TODAY TODAY THERE ARE NO SIGNIFICANT CHANGES COMPARED TO INITIAL EVAL. PATIENT IS A GOOD CANDIDATE TO TRY AQUATIC THERAPY AND HE IS AGREEABLE. Plan Plan: AQUATIC THERAPY FOR POSTURE CORRECTION/STRENGTHENING, INSTRUCTION IN APPROPRIATE BODY MECHANICS AND ACTIVITY MODIFICATIONS. DLS STARTING WITH A NEUTRAL SPINE PROGRESSING ROM TOLERATED. ANA LE ROM, STRETCHING AND STRENGTHENING. HEP INSTRUCTION. Goals Goal 1:: DECREASE C/O BACK AND RIGHT LE SX'S. Goal Time Frame: 4-6 Weeks Goal 2:: IMPROVE PERSONAL CARE, LIFTING, WALKING, SITTING, STANDING, SOCIAL LIFE, TRAVE AND HOMEMAKING FUNCTION. Goal Time Frame: 4-6 Weeks Goal 3:: INSTRUCT IN PROPHYLAXIS Goal Time Frame: 4-6 Weeks Anticipated Interventions Patient/Client Instruction: Educate patient on: Condition, Plan of Care, Risk Factors, Benefits of Fitness Program For the Purpose of:: To improve self management Therapeutic Exercise to Include: Strength training, Body mechanics, Postural training, Flexibilty training, Neuromotor development, In an aquatic setting, Dynamic Lumbar Stabilization For the Purpose of:: To decrease pain, To improve muscle performance and motor function, To increase tolerance to activity/condition/position, To improve ability of physical actions for home/community/work/leisure, To improve gait and locomotor functions Please do not hesitate to contact me at [phone] by phone or if you have questions or concerns regarding this new plan of care! Sincerely, Patricia Lopez, PT, Cert MDT
--- NOTE | 2020-02-06 12:07 | HP.PTDCSUM_ITS ---
It has been my pleasure to treat DOMINICK KENNEY referred by Dr. Vladimir Mehta, DO, with the diagnosis of BACK AND LEG PAIN for a total of 10 visit(s). Discharge Date: Please see the following information for a summary of their discharge status. Subjective: PATIENT REPORTS HIS BACK FEELS PRETTY GOOD BUT HIS THIGH PAIN AND HIS OVER-ALL FUNCTION THAT HE CAME HERE FOR IS NOT BETTER. PATIENT REPORTS HE IS NO WORSE SINCE STARTING PT. RIGHT KNEE STILL GIVES OUT ON HIM. PATIENT REPORTS TAKING ALEVE WEDNESDAY AND WEDNESDAY TO GET THROUGH DOING A LOT OF YARD WORK I NCLUDING WALKING ON MOUNDS AND HE PAID FOR IT WEDNESDAY. RIGHT THIGH/LEG Pain Intensity (Out of 10): 5 LOW BACK PAIN Pain Intensity (Out of 10): 2 LLE Pain Intensity (Out of 10): 2 % Improvement: 0 Objective/Function: PATIENT WAS SEEN TODAY FOR RE-ASSESSMENT OF PROGRESS TOWARD THE SET PT GOALS AND THE NEED FOR FURTHER PHYSICAL THERAPY VS READINESS FOR DISCHARGE. PATIENTS CHEIF COMPLAINT WHEN HE STARTED PT WAS RIGHT THIGH PAIN. PATIEN DOES NOT FEEL LIKE THIS PAIN HAS IMPROVED AT ALL AND HE DOES NOT FEEL HIS FUNCTION HAS IMPROVED SINCE STARTING PT BUT HE LIKE THE WATER EX AND LIKES HOW IT MAKES THE REST OF HIS BODY FEEL. STATES HE VALUES THE INSTRUCTION IN PROPER EX TECHNIQUE THAT HE HAS RECEIVED. UPON EXAM TODAY TODAY THERE ARE NO SIGNIFICANT OBJECTIVE CHANGES SINCE INITIAL EVAL. PATIENT IS NOT IMPROVING AND IS APPROPRIATE FOR PHYSICIAN RE-CHECK. RIGHT KNEE ROM TODAY IN SUPINE WITH A HEEL SLIDE IS 0-120 DEG. Goal 1:: DECREASE C/O BACK AND RIGHT LE SX'S. Goal Progress: Not Progressing Goal 2:: IMPROVE PERSONAL CARE, LIFTING, WALKING, SITTING, STANDING, SOCIAL LIFE, TRAVE AND HOMEMAKING FUNCTION. Goal Progress: Not Progressing Goal 3:: INSTRUCT IN PROPHYLAXIS Goal Progress: Not Progressing Plan: D/C DUE TO LACK OF IMPROVEMENT. PATIENT IS AGREEABLE. If there are questions or concerns regarding this patient's physical therapy, please feel free to call me at [phone]. Thank you for the referral of this patient. Sincerely, Patricia Lopez, PT, Cert MDT
== END 2020-02-06 19:00 | disposition home or self-care (01) ==
LOC: PT 11:30
PROVIDERS: PCP Student in an Organized Health Care Education/Training Program; Referring Provider Student in an Organized Health Care Education/Training Program; Visit Provider Student in an Organized Health Care Education/Training Program
DX: M54.41 Lumbago with sciatica, right side (principal); M79.604 Pain in right leg; G89.29 Other chronic pain; Z96.651 Presence of right artificial knee joint
CPT/HCPCS: 97113; 97116; 97162; 97164

== ENCOUNTER → 2020-02-29 | Outpatient (CLI) | payer MEDICARE, OTHER, SELFPAY ==
[2020-02-28 11:09] VITALS: BMI 42.5
--- NOTE | 2020-02-29 13:26 | RAD_ITS ---
STUDY: X-RAY CHEST REASON FOR EXAM: Male, 74 years old. SOB x 2 years, takes HBP medication, former smoker TECHNIQUE: PA and lateral views of the chest. COMPARISON: Comparison is made with prior study dated July 28, 2017. FINDINGS: There now is evidence of a mild degree of increased markings at the lung bases suggestive of linear atelectasis and/or possibly early infiltrates. There is no demonstrated pleural abnormality. There is borderline cardiomegaly. Normal mediastinum and husam. Normal visualized pulmonary arteries. There is atherosclerotic calcification of the aortic arch with tortuosity. There are diffuse degenerative changes of the visualized thoracic spine. Normal visualized ribs, clavicles, and shoulders. Hiatal hernia. RAD/Chest PA and Lateral IMPRESSION: Mild degree of increased markings at the lung bases suggestive of linear atelectasis and possible early infiltrates. Electronically Signed: Gee Leonardo, at 14:38 EDT , Service support ,
[2020-02-29 15:07] LABS: Anion Gap 5 (5-15); BNP,B-Type NATRIURETIC PEPTIDE 130.5 pg/mL (0-100); BUN 26 mg/dL (7-18); BUN/Creat Ratio 16.6 RATIO (10-20); Calcium,Total 9.2 mg/dL (8.5-10.1); Chloride 104 mmol/L (98-107); Creatinine, Serum 1.57 mg/dL (0.70-1.30); EST Glomerular Filtration Rate 46 mL/min (>60); Est Glom Filt Rate - Afr Amer 56 mL/min (>60); Glucose 80 mg/dL (74-106); Potassium 3.6 mmol/L (3.5-5.1); Sodium Level 142 mmol/L (136-145)
== END | disposition home or self-care (01) ==
LOC: LAB 13:24
PROVIDERS: PCP Student in an Organized Health Care Education/Training Program; Referring Provider Internal Medicine Cardiovascular Disease; Visit Provider Internal Medicine Cardiovascular Disease
DX: R06.02 Shortness of breath (principal); I25.10 Atherosclerotic heart disease of native coronary artery without angina pectoris; I71.2 Thoracic aortic aneurysm, without rupture; E78.5 Hyperlipidemia, unspecified; I10 Essential (primary) hypertension
CPT/HCPCS: 36415; 71046; 80048; 83880

== ENCOUNTER → 2020-03-13 | Outpatient (CLI) | payer MEDICARE, OTHER, SELFPAY ==
[2020-02-28 11:09] VITALS: BMI 42.5
[2020-03-13 14:07] LABS: Anion Gap 3 (5-15); BUN 29 mg/dL (7-18); BUN/Creat Ratio 17.1 RATIO (10-20); Calcium,Total 9.1 mg/dL (8.5-10.1); Chloride 103 mmol/L (98-107); EST Glomerular Filtration Rate 42 mL/min (>60); Est Glom Filt Rate - Afr Amer 51 mL/min (>60); Glucose 107 mg/dL (74-106); Potassium 3.8 mmol/L (3.5-5.1); Sodium Level 138 mmol/L (136-145)
== END | disposition home or self-care (01) ==
LOC: LAB 12:44
PROVIDERS: PCP Student in an Organized Health Care Education/Training Program; Referring Provider Internal Medicine Cardiovascular Disease; Visit Provider Internal Medicine Cardiovascular Disease
DX: I25.10 Atherosclerotic heart disease of native coronary artery without angina pectoris (principal)
CPT/HCPCS: 36415; 80048

== ENCOUNTER → 2020-03-27 13:18 | Outpatient (CLI) | payer MEDICARE, OTHER, SELFPAY ==
[2020-02-28 11:09] VITALS: BMI 42.5
[2020-03-27 14:47] LABS: Anion Gap 5 (5-15); BUN 29 mg/dL (7-18); BUN/Creat Ratio 17.6 RATIO (10-20); Calcium,Total 8.7 mg/dL (8.5-10.1); Chloride 107 mmol/L (98-107); Creatinine, Serum 1.65 mg/dL (0.70-1.30); EST Glomerular Filtration Rate 44 mL/min (>60); Est Glom Filt Rate - Afr Amer 53 mL/min (>60); Glucose 129 mg/dL (74-106); Potassium 3.5 mmol/L (3.5-5.1); Sodium Level 142 mmol/L (136-145)
== END ==
PROVIDERS: PCP Student in an Organized Health Care Education/Training Program; Referring Provider Internal Medicine Cardiovascular Disease; Visit Provider Internal Medicine Cardiovascular Disease
DX: I10 Essential (primary) hypertension (principal); I25.10 Atherosclerotic heart disease of native coronary artery without angina pectoris; R53.83 Other fatigue
CPT/HCPCS: 36415; 80048

== ENCOUNTER → 2020-12-02 06:42 | Outpatient (CLI) | payer MEDICARE, OTHER, SELFPAY ==
[2020-11-27 14:11] VITALS: BMI 43.0
--- NOTE | 2020-12-02 06:47 | CT_ITS ---
STUDY: CT CHEST WITH CONTRAST REASON FOR EXAM: Male, 75 years old. thoracic aortic aneurysm RADIATION DOSAGE (If Supplied By Facility): CTDIvol = ( 21.76 ) mGy, DLP = ( 777.61 ) mGycm TECHNIQUE: Transaxial imaging was performed following intravenous administration of IV 100mL Isovue-300. Multiplanar coronal and sagittal images were reformatted. Individualized dose optimization techniques were used for this CT. COMPARISON: 10/22/2014, CTA chest 09/13/2019 FINDINGS: Stable coarsened interstitial lung markings in the subpleural bilateral lower lobes. Localized fibrosis of the medial right lower lobe is stable. No airspace consolidation, pulmonary nodule or pleural effusion. Normal heart and pericardium. There are calcifications of the coronary arteries. There are calcified lymph nodes of the mediastinum. No soft tissue adenopathy. Normal enhanced pulmonary arteries. Atherosclerosis and tortuosity of the thoracic aorta. Ascending thoracic aorta measures up to 4.1 cm. No annita thoracic aortic aneurysm or dissection. There are multi-level degenerative changes of the thoracic spine. The spleen is enlarged, stable. CT/Chest WITH Contrast IMPRESSION: 1. Stable thoracic aortic tortuosity/ectasia with atherosclerosis. No aneurysm or dissection. 2. Stable splenomegaly. Electronically Signed: Kvng Pantoja MD ([place]) at 8:15 EDT , Service support ,
[2020-12-02 06:56] LABS: CREATININE FINGERSTICK 1.9 mg/dL (0.70-1.30)
== END ==
PROVIDERS: PCP Student in an Organized Health Care Education/Training Program; Referring Provider Internal Medicine Cardiovascular Disease; Visit Provider Internal Medicine Cardiovascular Disease
DX: I71.2 Thoracic aortic aneurysm, without rupture (principal)
CPT/HCPCS: 71260; Q9967

== ENCOUNTER 2021-05-26 07:45 | Day surgery (SDC) | payer MEDICARE, OTHER, SELFPAY ==
--- NOTE | 2021-05-22 14:17 | HP.PCM_ITS ---
History and Physical Date of Admission: 05/26/21 Chief Complaint: 90% improvement in the right lumbar History of Present Illness: This is a 75 Y/O male who was seen and evaluated at our office today as a follow up. Pain: right low back (improved)/tailbone and right ankle Quality: intermittent w/activity,varies in intensity Region: Pain in the tailbone and in the right ankle.Right lower back pain has improved but still gets pain when on his feet for 10-15 minutes. Severity: pressure,aching,burning Timin years ago Aggravated by: standing and walking Relieved by: sitting Pain score (out of 10): 0/10 sitting lumbar / tailbone 4-5/10 Other info: Patient is here for a follow up-post RFA in the right lumbar spine decreased his pain by 90%. Reports he still has pain in the right lower back when on his feet for 10-15 minutes.Reports constant burning pain in the tailbone area.Reports occasional pain in the right ankle and in the right upper thigh and thinks it comes from the knee post surgery.States he has been getting some pain in the left lower back since the right side has improved.States the pain varies in intensity with activity.States he hasn't been taking his tramadol.States he was prescribed an inhaler and a cough syrup for his congestion and is scheduled for a breathing test next week. Review of Systems: Patient denies any recent fever, chills, headache, change in weight without trying, vision or hearing problems. No cp, sob, freed, pnd, orthopnea, or peripheral edema.They note no lumps or swollen glands, no new rashes, changing moles, or change in bowel or bladder function.Mood has been good overall. Past Medical History: h/o hypertension h/o thoracic aortic aneurysm w/o rupture h/o fatigue h/o high cholesterol h/o benign prostatic hyperplasia h/o chronic kidney disease h/o Diverticulosis h/o atherosclerotic heart disease of [place] coronary artery s/p adenoidectomy s/p tonsillectomy s/p foot surgery s/p heart catherization s/p Appendectomy s/p Right TKR Family History: ======== Structured Family History ======== Father: Coronary artery disease Mother: Congestive heart failure Sister: Hypertension, Coronary artery disease Brother: Hypertension, Coronary artery disease Social History: [Tobacco: Former smoker (0 pk yrs / 0 yrs quit) Start Date: 10/24/2020 End Date: 10/24/2020 Pipe Smoker: No Cigar Smoker: No Chewing Tobacco User: No Electronic Cigarette User: No] Living situation: Occupation: Retired Tobacco: Former EtOH: Occasional Rec. drugs: Denies Allergies: Lisinopril Medications: 1) aspirin 81 mg oral delayed release tablet, Take 1 tablet by mouth once daily 2) atenolol 100 mg oral tablet, Take 1 tablet by mouth once daily 3) atorvastatin 10 mg oral tablet, Take 1 tablet by mouth once daily 4) furosemide 20 mg oral tablet, Take 1 tablet by mouth once daily 5) losartan 100 mg oral tablet, Take 1 tablet by mouth once daily 6) Multiple Vitamins oral capsule, Take 1 tablet by mouth once daily 7) Paxton-3 1000 mg oral capsule, Take 1 tablet by mouth once daily 8) potassium chloride 20 mEq oral tablet, extended release, Take 1 tablet by mouth 2 times a Day 9) sertraline 50 mg oral tablet, Take 1 tablet by mouth 3 Times a Day 10) tamsulosin 0.4 mg oral capsule, Take 1 tablet by mouth every evening 11) traMADol 50 mg oral tablet, 1 tablet po daily to bid as needed for BTP 12) Vitamin D2 2000 intl units oral capsule, Take 1 tablet by mouth once daily 13) zinc (as gluconate) 50 mg oral tablet, Take 1 tablet by mouth once daily Physical Examination: Wt: 315.8 lb Ht/Ln: 70 in BMI: 45.3 BP: 123/71 Pulse: 50 RR: 18 Temp: 96.4F Pain: 5 Well nourished and well developed in no acute distress. Alert and oriented to person, place and time. Affect is normal and appropriate. Mucosa pink and moist. Respirations even and unlabored. Neck is supple without significant lymphadenopathy or thyromegaly. Abdomen soft & non-tender. No HSM or masses appreciated. Extremities show no cyanosis, clubbing, or edema. Gait is Antalgic. Bilateral lumbar facet loading is positive worse on the right. Lumbar paraspinal muscle tenderness. Lumbar ROM is limited due to pain. Motor and sensory exam is unchanged. 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 UDS was reviewed, pt appears compliant SOAPP score is 4 Xray of the lumbar spine was reviewed with the pt today and they appear to understand. There are no signs of diversion or addiction with the pt, there is also no signs of abuse or misuse, continues to do well with their medications without any side effects, we will continue monitoring the pt closely. Reviewed with the pt today our opioid agreement and they appear to understand. PEG was reviewed today. Life style modifications were also discussed today and the pt appears to understand. Weight loss was recommended today through diet and exercise Risks and benefits of the above meds were discussed with the pt and they appear to understand. The common side effects of the medications were discussed and all of their questions and concerns were answered and they appear to understand Discussed natural and expected course of this diagnosis and need to alert me if symptoms do not follow expected course, or if any worse. Pt is to continue with his PT and HEP. Pt has tried multiple modalities with no success, we will schedule the pt for a therapeutic/diagnostic ganglion impar steroid injection under fluoroscopy We have discussed the risks, benefits as well as alternatives of the procedure a nd the patient appears to understand and would like to proceed with the above plan. The above plan was discussed today with the pt in detail and they appear to understand and agrees to continue with the plan.
[2021-05-26] VITALS (8 sets, daily range): BP systolic 108–141; BP diastolic 59–89; PULSE 50–60; RESP 16; TEMP 36.5–36.9; O2SAT 92–95; BMI 43.6
[2021-05-26] MEDS: Lactated Ringers 1,000 ML 100 ML IV (08:51)
--- NOTE | 2021-05-26 09:45 | RAD_ITS ---
PROCEDURE: CAUDAL EPIDURAL STEROID INJECTION INDICATION: 75-year-old male with low back pain. EXAMINATION/TECHNIQUE: X-RAY - IR Fluoro Guide Injection Spine Total Fluoroscopic Time: 3.7 seconds Fluoroscopic Images: 1 Fluoroscopy Dose: 4.16 mGy COMPARISON: 10/23/2020. FINDINGS: A single spot floroscopic image was obtained intra-operatively demonstrating a needle superimposed over the lower sacrum with contrast injection No radiologist was present for the procedure, please refer to operative report for details. RAD/Fluoro Guided Needle Placement IMPRESSION: Please refer to operative report for details. Electronically Signed: Stevenson Zuniga MD at 14:30 EDT Tel , Service support ,
[2021-05-26] MEDS: MethylPREDNISolone Acetate 80 MG/ML Vial (09:49)
[2021-05-26] MEDS: Lidocaine 1% (5 ml sdv) 5 ML Vial (09:50)
[2021-05-26] MEDS: Bupivacaine 0.25% 30 ML Vial (09:50)
--- NOTE | 2021-05-26 15:32 | OP.PCM_ITS ---
Report of Operation Date of Procedure: 05/26/21 Description of Surgical Findings:: PREOPERATIVE DIAGNOSIS: Coccydynia. POSTOPERATIVE DIAGNOSIS: Coccydynia. PROCEDURE PERFORMED: Inferior hypogastric ganglion steroid injection (ganglion impar steroid injection) under fluoroscopy guidance. ANESTHESIA: MAC. BLOOD LOSS: Minimal. COMPLICATIONS: None. DESCRIPTION OF PROCEDURE: History and physical of today was reviewed. Risks an d benefits of the procedure were explained. The patient understood and agreed to proceed. Informed consent was obtained. IV inserted per routine protocol. The patient was taken to the operating room and placed in the prone position with a pillow positioned underneath the abdomen. The lower back and tailbone area was prepped and draped in a sterile fashion using iodine x3. Under fluoroscopy guidance on lateral view, the caudal space was identified. The skin and subcutaneous tissue was anesthetized with approximately 3 mL of 1% lidocaine using a 25-gauge regular needle. Under direct visualization with fluoroscopy on a lateral view, using a 22-gauge 3-1/2-inch spinal needle, the needle was passed through the skin. The tip of the needle was maneuvered and directed towards the sacrococcygeal ligament. The needle was passed through the sacrococcygeal ligament and advanced anterior through the sacrococcygeal membrane anterior to the sacrum. After negative aspiration for blood, a total of 2 mL of contrast was injected to confirm correct placement of the needle as well as anterior spread through the sacrum and coccyx on lateral view. After repeated negative aspiration and confirmation on lateral as well as AP view, a total of 10 mL of preservative-free 0.125% Marcaine with 40 mg of Depo-Medrol was injected. The needle was then removed intact. The patient experienced no sign or symptoms of intrathecal or intravascular injection. The patient experienced no paresthesia. The procedure was completed without any apparent difficulty or any complications. The patient appeared to tolerate it well. ASSESSMENT AND PLAN: This is a 75-year-old male with coccydynia, status post inferior hypogastric (ganglion impar) steroid injection under fluoroscopy guidance. The patient will continue his current medications. The patient will follow up in approximately 2 weeks for reevaluation.
== END 2021-05-26 10:53 ==
LOC: SDC 07:46 → ACINP 08:13
PROVIDERS: PCP Student in an Organized Health Care Education/Training Program; Referring Provider Anesthesiology Pain Medicine; Visit Provider Anesthesiology Pain Medicine
PROC: 3E0T3BZ Introduction of Anesthetic Agent into Peripheral Nerves and Plexi, Percutaneous Approach (ICD-10-PCS; CPT 64999; principal; 2021-05-26 09:25)
DX: M53.3 Sacrococcygeal disorders, not elsewhere classified (principal); I12.9 Hypertensive chronic kidney disease with stage 1 through stage 4 chronic kidney disease, or unspecified chronic kidney disease; N18.9 Chronic kidney disease, unspecified; N40.0 Benign prostatic hyperplasia without lower urinary tract symptoms; E78.5 Hyperlipidemia, unspecified; M51.17 Intervertebral disc disorders with radiculopathy, lumbosacral region; M47.27 Other spondylosis with radiculopathy, lumbosacral region; G47.33 Obstructive sleep apnea (adult) (pediatric); M48.07 Spinal stenosis, lumbosacral region; I25.10 Atherosclerotic heart disease of native coronary artery without angina pectoris; Z87.891 Personal history of nicotine dependence; Z79.899 Other long term (current) drug therapy; Z79.82 Long term (current) use of aspirin
CPT/HCPCS: 01992; 62323; 76000; 77002; J7120

== ENCOUNTER 2021-08-05 16:45 | Outpatient (CLI) | payer MEDICARE, OTHER, SELFPAY ==
[2021-08-05 17:09] VITALS: BP 112/63; PULSE 63; RESP 20; TEMP 37.6; O2SAT 92; BMI 42.7
[2021-08-05] MEDS: 0.9% Saline Lock 10 ML Syringe IV (17:11)
[2021-08-05 17:37] VITALS: BP 131/58; PULSE 63; RESP 16; TEMP 37.4; O2SAT 93
[2021-08-05 18:19] VITALS: BP 124/67; PULSE 62; RESP 18; TEMP 37.2; O2SAT 92
== END 2021-08-05 18:37 | disposition home or self-care (01) ==
LOC: MS3OUT 16:45 → MS3 16:46
PROVIDERS: PCP Student in an Organized Health Care Education/Training Program; Referring Provider Nurse Practitioner Adult Health; Visit Provider Nurse Practitioner Adult Health
DX: Z23 Encounter for immunization (principal); U07.1 COVID-19
CPT/HCPCS: J7050; M0243; A4216; Q0244

== ENCOUNTER 2021-10-29 11:09 | Outpatient (CLI) | payer MEDICARE, OTHER, SELFPAY ==
--- NOTE | 2021-10-29 11:24 | MRI_ITS ---
HISTORY: Lower back pain. DDD, RADICULOPATHY, SPONDYLOSIS, STENOSIS, ARTHROPATHY LUMBAR FACET. TECHNIQUE: Multiplanar and multisequence MR images of the lumbar spine. IV Contrast dosage and agent: None. # of images incl. paperwork: 131. COMPARISON: XR 10/23/2020. FINDINGS: VERTEBRAE: Vertebral body heights maintained with Schmorl's nodes noted at multiple levels. Degenerative bone marrow endplate changes of L2-3. ALIGNMENT: No significant anterior or posterior subluxation. CONUS: Normal morphology and position at L1. SOFT TISSUES: Mild posterior subcutaneous edema. INTERVERTEBRAL DISCS: T12-L1: No significant posterior disc herniation, central canal stenosis, or foraminal narrowing. L1-2: Moderate posterior disc bulge osteophyte complex with facet arthropathy resulting in mild central canal stenosis and bilateral foraminal narrowing. L2-3:Mild left paracentral disc protrusion abutting the left L3 nerve root with minimal narrowing of the thecal sac. Facet arthropathy. Mild left foraminal narrowing. L3-4: Mild posterior disc bulge osteophyte complex with facet arthropathy resulting in bilateral foraminal narrowing and no significant central canal stenosis. L4-5: Minimal posterior disc bulge and spur complex with facet arthropathy resulting in minimal narrowing of the thecal sac and mild bilateral foraminal narrowing. L5-S1: No significant posterior disc herniation, central canal stenosis, or foraminal narrowing. OTHER: Bilateral round T2 hyperintense and T2 hypointense renal lesions. 5.4 cm septated complex right renal lesion. MRI/Spine Lumbar (Routine) IMPRESSION: Multilevel degenerative disc disease as described above. Complex cyst or solid mass in the left kidney. Recommend follow-up dedicated abdominal imaging. at 1658 Reported and signed by: Belle Byrd MD Electronically Signed: Belle Byrd MD at 16:56 EST ,
== END 2021-10-29 23:59 | disposition home or self-care (01) ==
LOC: MRI 11:11
PROVIDERS: PCP Student in an Organized Health Care Education/Training Program; Referring Provider Nurse Practitioner Family; Visit Provider Nurse Practitioner Family
DX: M46.96 Unspecified inflammatory spondylopathy, lumbar region (principal); M51.37 Other intervertebral disc degeneration, lumbosacral region; M54.17 Radiculopathy, lumbosacral region; M47.817 Spondylosis without myelopathy or radiculopathy, lumbosacral region; M48.07 Spinal stenosis, lumbosacral region
CPT/HCPCS: 72148

== ENCOUNTER → 2021-12-18 | Outpatient (CLI) | payer MEDICARE, OTHER, SELFPAY ==
--- NOTE | 2021-12-18 12:37 | ECHOD_ITS ---
Reason For Study: SOB Procedure This was a 2D Doppler, Color Flow transthoracic echocardiogram. The study was technically difficult. Contrast injection was performed. Exam performed in department. Left Ventricle Based upon the 2D echocardiographic and contrast enhanced images obtained there appears to be grossly normal left ventricular size, wall motion, and systolic function. The estimated ejection fraction is 55 %. Diastolic function is indeterminate. Right Ventricle Based upon the 2D echocardiographic images obtained there appears to be grossly normal right ventricular size and systolic function. Atria The left atrium is mildly enlarged. Normal right atrium. No doppler evidence for ASD. Mitral Valve There is no mitral annular calcification. Normal mitral valve. Trivial mitral valve insufficiency. Tricuspid Valve Normal tricuspid valve. Trivial tricuspid valve insufficiency. Unable to estimate RV systolic pressure/pulmonary artery pressure due to technically difficult study. Aortic Valve Trisinus/trileaflet aortic valve. Normal aortic valve. Pulmonic Valve The pulmonic valve is not well visualized. Great Vessels Mildly dilated aortic root. Pericardium/Pleural No pericardial effusion. Medication 20 gauge I.V. with prn adaptor inserted into right arm. Diluted definity 3ml given slow IV push to enhance endocardial definition. MMode/2D Measurements & Calculations LVIDd: 5.4 cm IVSd: 1.4 cm LVIDs: 2.4 cm LVPWd: 1.3 cm LVAd ap4: 40.9 cm2 RVDd: 4.8 cm FS: 55.7 % LVLd ap4: 10.0 cm EDV(MOD-sp4): 137.2 ml EDV(sp4-el): 141.8 ml LVAs ap4: 25.5 cm2 LVLs ap4: 8.4 cm ESV(MOD-sp4): 64.6 ml ESV(sp4-el): 65.9 ml EF(MOD-sp4): 52.9 % EF(sp4-el): 53.5 % LVAd ap2: 41.1 cm2 SV(MOD-sp4): 72.6 ml SV(MOD-sp2): 86.4 ml LVLd ap2: 9.5 cm EDV(MOD-sp2): 146.6 ml EDV(sp2-el): 150.6 ml LVAs ap2: 24.7 cm2 LVLs ap2: 8.1 cm ESV(MOD-sp2): 60.2 ml ESV(sp2-el): 64.5 ml EF(MOD-sp2): 58.9 % SV(sp4-el): 75.9 ml LA dimension(2D): 4.4 cm Doppler Measurements & Calculations MV E max joss: 79.3 cm/sec Lat Peak E' Joss: 8.6 cm/sec Med Peak E' Joss: 7.1 cm/sec E/E' lat: 9.2 E/E' med: 11.2 Ao V2 max: 102.9 cm/sec LV V1 max: 105.0 cm/sec PA V2 max: 105.8 cm/sec Ao max P.2 mmHg LV V1 max P.4 mmHg ECHO/Echo Complete Interpretation Summary The study was technically difficult. Contrast injection was performed. Based upon the 2D echocardiographic and contrast enhanced images obtained there appears to be grossly normal left ventricular size, wall motion, and systolic function The estimated ejection fraction is 55 %. The left atrium is mildly enlarged. Trivial mitral valve insufficiency. Trivial tricuspid valve insufficiency. Mildly dilated aortic root. Unable to estimate RV systolic pressure/pulmonary artery pressure due to techni maggie difficult study. Diastolic function is indeterminate. Ordering Physician: Shaka Monroy Referring Physician: Shaka Monroy Performed By:
--- NOTE | 2021-12-18 13:36 | CT_ITS ---
STUDY: CTA CHEST REASON FOR EXAM: Male, 76 years old. Thoracic aortic aneurysm without rupture RADIATION DOSAGE (If Supplied By Facility): CTDIvol = ( 16.06 ) mGy, DLP = ( 699.37 ) mGycm TECHNIQUE: The examination was performed with the intravenous administration of IV 100mL Isovue-370. Post-processing of the angiographic images was performed, with multiplanar reformation and 3D reconstruction. Individualized dose optimization techniques were used for this CT. COMPARISON: Comparison is made with prior study dated 09/13/2019. FINDINGS: Stable small benign-appearing bilateral axillary lymph nodes. Normal enhancement of the main pulmonary artery and right and left pulmonary arteries. Normal enhancement of the bilateral peripheral pulmonary arteries. There is no demonstrated pulmonary embolism. There is aneurysmal dilatation of the ascending aorta. The transverse diameter of the ascending aorta measures 42.6 mm''s. This is essentially unchanged. There is no demonstrated aortic dissection. Tortuous descending thoracic aorta at the level of the diaphragmatic hiatus. There are calcifications of the coronary arteries. There are visualized mediastinal lymph nodes, which are within normal size limits, and with normal morphology. Normal hilar regions. Normal visualized trachea and bronchi. The lungs are well expanded. Minimal increased markings at the lung bases suggestive of a linear atelectasis and/or scarring. Normal pleura. Normal chest wall structures. There are degenerative changes of thoracic spine. Normal visualized upper abdomen. CT/CTA Chest W/WO Contrast IMPRESSION: Stable examination. Electronically Signed: Gee Leonardo MD at 14:22 EDT ,
[2021-12-18 13:56] LABS: CREATININE FINGERSTICK 1.2 mg/dL (0.70-1.30); EGFR FINGERSTICK > 60.0000 mL/min (>60)
== END | disposition home or self-care (01) ==
LOC: CT 12:37
PROVIDERS: PCP Student in an Organized Health Care Education/Training Program; Referring Provider Internal Medicine Cardiovascular Disease; Visit Provider Internal Medicine Cardiovascular Disease
DX: I71.2 Thoracic aortic aneurysm, without rupture (principal); E78.5 Hyperlipidemia, unspecified; I10 Essential (primary) hypertension; I25.10 Atherosclerotic heart disease of native coronary artery without angina pectoris
CPT/HCPCS: 71275; 93306; Q9957; Q9967; A4216

== ENCOUNTER → 2022-09-09 | Outpatient (CLI) | payer MEDICARE, OTHER, SELFPAY ==
--- NOTE | 2022-09-09 15:30 | US_ITS ---
ACR Level 3 findings have been noted. An addendum which confirms receipt of the report will follow. INDICATION: RENAL CYSTS EXAMINATION: Ultrasound US Kidney(s) complete (eg, kidneys and bladder) TECHNIQUE: Rene scale and color doppler images were obtained of the kidneys. COMPARISON: 12/13/2017 FINDINGS: RIGHT KIDNEY: 10.8 x 6.9 x 5.4 cm. There is no hydronephrosis. No shadowing calculus, focal lesion or perinephric collection is demonstrated. 3.3 x 2.8 x 2.9 cyst with a single septation, mildly increased compared to 12/13/2017. 2.2 x 2.1 x 2.1 cm cyst. 3.6 x 3.1 x 3.1 cm measured area that appears similar in echotexture to the kidney. LEFT KIDNEY: 12.2 x 6.9 x 6.1 cm. There is no hydronephrosis. No shadowing calculus, focal lesion or perinephric collection is demonstrated. 3.4 x 3.2 x 4.8 cm cyst with septations. 4.9 x 5.3 x 4.5 cm cyst. Multiple smaller cysts. URINARY BLADDER: No acute abnormality. Both ureter jets visualized. US/Kidney and Bladder IMPRESSION: 1. There is a 3.6 cm area measured by the insurance agency sales manager that appears similar in echotexture to the kidney. Recommend abdomen CT protocol to evaluate malignant potential. 2. Multiple right and left renal cysts, some with septation, detailed above. Electronically Signed: Shaka Carmona MD at 22:24 EST ,
== END | disposition home or self-care (01) ==
PROVIDERS: PCP Student in an Organized Health Care Education/Training Program
DX: N28.1 Cyst of kidney, acquired (principal)
CPT/HCPCS: 76770

== ENCOUNTER → 2022-09-23 | Outpatient (CLI) | payer MEDICARE, OTHER, SELFPAY ==
--- NOTE | 2022-09-23 16:55 | MRI_ITS ---
HISTORY: RT COMPLEX RENAL CYST Date: 09/23/2022 5:17 PM Technique: MRI examination of the abdomen with attention to the kidneys obtained with standard protocol including multiplanar multiecho pre and postcontrast imaging. Contrast: 29 mL of Clariscan. Comparison: Renal ultrasound of 09/09/2022 FINDINGS: 1. Kidneys have a lobulated contour with multiple cysts noted bilaterally. Several of the cysts are septated. There is a dominant cyst along the lower pole of LEFT kidney, measuring approximately 5.4 x 4.9 cm. Multiple smaller cysts are present bilaterally. 2. Many of the cysts are characterized by elevated T2 signal, mixed to elevated T1 signal consistent with proteinaceous material. 3. No perinephric soft tissue stranding noted. 4. There is a irregular shaped structure arising from the lower pole of the RIGHT kidney, estimated at approximately 3.8 x 4.2 cm in axial dimension, and 2.6 cm in superior to inferior dimension. Both solid and cystic elements are present, and postcontrast imaging demonstrates diffuse contrast enhancement. This appears to correspond to the abnormality on recent ultrasound corresponding to a solid and cystic mass measuring 3.6 x 3.1 x 3.1 cm on ultrasound. 5. No other solid mass is identified. 6. No evidence of hydronephrosis or perinephric fluid collections. 7. Retroperitoneal fascial planes and periaortic fascial planes have normal appearance. 8. Normal appearance of visualized bowel segments, visualized liver, pancreas and spleen. MRI/MRI Abd WITH and W/O Contrast IMPRESSION: 1. Multiple bilateral renal cysts. Largest is located in the lower pole LEFT kidney measuring 5.4 x 4.9 cm with cystic characteristics consistent with proteinaceous material. 2. Solid and cystic mass arising from the lower pole of the RIGHT kidney, measuring 3.8 x 4.2 x 2.6 cm with diffuse enhancement including the soft tissue component. This does correspond to the abnormality on recent ultrasound. 3. Recommend correlation with postcontrast CT examination with attention to the kidneys and evaluate for potential renal mass/neoplasm in the lower pole of the RIGHT kidney. 4. No evidence of obstructive uropathy. Electronically Signed: Rufus Girard MD at 0:21 EST ,
[2022-09-28 09:38] LABS: CREATININE FINGERSTICK 1.29 mg/dL (0.70-1.30); EGFR FINGERSTICK 58 mL/min (>60)
== END | disposition home or self-care (01) ==
LOC: MRI 16:47
PROVIDERS: PCP Student in an Organized Health Care Education/Training Program
DX: N28.1 Cyst of kidney, acquired (principal)
CPT/HCPCS: 74183; A9575

== ENCOUNTER → 2022-12-04 | Outpatient (CLI) | payer MEDICARE, OTHER, SELFPAY ==
--- NOTE | 2022-12-04 11:30 | MRI_ITS ---
INDICATION: SPINAL STENOSIS EXAMINATION: MRI - MR Spine Lumbar WO/W Contrast TECHNIQUE: Multiplanar and multisequence MR images of the lumbar spine. IV Contrast Dosage and Agent: None. COMPARISON: C-arm 10/23/2020. FINDINGS: VERTEBRAE: Vertebral body heights are preserved. Moderate diffuse anterior osteophyte formation is stable and is most pronounced L1-L3. VERTEBRAL ALIGNMENT: No spondylolisthesis. There is preservation of the normal lumbar lordosis. CORD: Normal position and signal intensity of the conus medullaris. L1/L2: Moderate disc desiccation and loss of disc space height, moderate disc bulging, mild bilateral facet arthropathy, mild central stenosis, moderate bilateral neural foraminal encroachment. L2/L3: Moderate disc desiccation, mild disc bulging, moderate bilateral facet arthropathy, status post bilateral laminectomy. L3/L4: Moderate disc desiccation and loss of disc space height, mild disc bulging, moderate bilateral facet arthropathy, bilateral laminectomy, moderate bilateral neural foraminal encroachment. L4/L5: Moderate disc desiccation and loss of disc space height, mild disc bulging, moderate bilateral facet arthropathy, bilateral laminectomy, moderate bilateral neural foraminal encroachment. L5/S1: Moderate disc desiccation, mild disc bulging, moderate bilateral facet arthropathy, moderate bilateral neural foraminal encroachment. Within the laminectomy defects at L2-3, L3-4 and L4-5 there is contrast enhancement consistent with epidural fibrosis. There is a septated cyst in the posterior lower pole of the left kidney measuring 5.2 cm likely Bosniak type II cyst. MRI/Spine Lumbar W/WO Contrast IMPRESSION: Status post bilateral laminectomies L2-L5. Moderate disc bulging L1-2, mild disc bulging L2-S1. Epidural fibrosis within laminectomy defects L2-L5. Multilevel degenerative disc disease, central stenosis, facet arthropathy and neural foraminal encroachment as above. Electronically Signed: Lester Rasmussen MD, [facility] at 18:32 EDT ,
== END | disposition home or self-care (01) ==
LOC: MRI 10:58
PROVIDERS: PCP Student in an Organized Health Care Education/Training Program
DX: M48.061 Spinal stenosis, lumbar region without neurogenic claudication (principal)
CPT/HCPCS: 72158; A9575

== ENCOUNTER → 2023-04-08 | Outpatient (CLI) | payer MEDICARE, OTHER, SELFPAY ==
--- NOTE | 2023-04-08 12:43 | CT_ITS ---
STUDY: CTA CHEST REASON FOR EXAM: Male, 77 years old. TAA RADIATION DOSAGE (If Supplied By Facility): CTDIvol = ( 17.48 ) mGy, DLP = ( 731.89 ) mGycm TECHNIQUE: The examination was performed with the intravenous administration of IV 100mL Isovue-370. Post-processing of the angiographic images was performed, with multiplanar reformation and 3D reconstruction. Individualized dose optimization techniques were used for this CT. COMPARISON: FINDINGS: Normal enhancement of the main pulmonary artery and right and left pulmonary arteries. Normal enhancement of the bilateral peripheral pulmonary arteries. There is no demonstrated pulmonary embolism. Borderline ascending aorta at 4 cm. There is no demonstrated aortic dissection. Normal heart and pericardium. Granulomatous calcifications in the mediastinum and left hilum. Normal visualized trachea and bronchi. The lungs are well expanded. Pulmonary granulomas. Normal pleura. Normal chest wall structures. Normal osseous structures. Cholelithiasis. Enlarged spleen. CT/CTA Chest W/WO Contrast IMPRESSION: No demonstrated pulmonary embolism or arterial dissection. Dilated ascending aorta. Cholelithiasis. Enlarged spleen. Electronically Signed: Casey Causey DO at 23:36 EDT Reading Location ID and State: [facility] / [place] Tel [phone], Service support ,
[2023-04-08 13:06] LABS: EGFR FINGERSTICK > 60.0000 mL/min (>60)
== END | disposition home or self-care (01) ==
LOC: CT 12:40
PROVIDERS: PCP Student in an Organized Health Care Education/Training Program; Referring Provider Physician Assistant Medical; Visit Provider Physician Assistant Medical
DX: M06.00 Rheumatoid arthritis without rheumatoid factor, unspecified site (principal); M85.9 Disorder of bone density and structure, unspecified; Z79.52 Long term (current) use of systemic steroids
CPT/HCPCS: 71275

== ENCOUNTER → 2023-04-28 | Outpatient (CLI) | payer MEDICARE, OTHER, SELFPAY ==
--- NOTE | 2023-04-28 07:30 | MRI_ITS ---
STUDY: MRI ABDOMEN WITH AND WITHOUT CONTRAST REASON FOR EXAM: Male, 77 years old. KIDNEY CYST TECHNIQUE: Standardized fat and water weighted pulse sequences were obtained in all 3 orthogonal planes post contrast administration. IV 29 cc clariscan was administered for the contrast portion of the examination. COMPARISON: 09/23/2022 FINDINGS: The visualized lung bases are unremarkable. The visualized portions of the heart are within normal limits. Normal visualized liver. There is non-visualization of the gallbladder, which may be secondary to either contraction or a prior cholecystectomy. There is mild splenomegaly. Normal pancreas. Normal bilateral adrenal glands. There are multiple T2 bright renal cysts in both kidneys. Some minimal cysts are intermediate on T2 and bright on T1 weighted images, compatible with proteinaceous/hemorrhagic cysts. Along the posterior inferior right kidney, there is redemonstration of a 3.0 x 3.9 cm lesion (best seen on image 21 series 6 and image 93 series 13) that is stable in size as compared to the prior MRI, accounting for variations in measurement technique (lesion independently measured on both studies, side by side). There is intermediate T2 and low T1 signal intensity along the posterior, lateral and cephalad border of the lesion on image 19 of series 6 and image 19 of series 4. Relatively thickened septation along the anterolateral border on image 18 of series 4. There is measurable enhancement of this thickened septation evident on image 82 of series 3 (interposed between 2 T1 hyperintense segments of lesion), comparing the image 19 of series 6 (precontrast). Normal left kidney. Visualized hollow viscus structures are unremarkable. Normal abdominal aorta. Normal inferior vena cava. Normal retroperitoneum. Normal abdominal wall. No bone marrow edema. MRI/MRI Abd WITH and W/O Contrast IMPRESSION: 1. Stable size of complex lesion of the inferior right kidney with thickened septation and measurable enhancement (Bosniak III). ACR White Paper guidelines (Herconner, et al. JACR 2018; 15(2):264-273) suggest referral for management if a referral has not already been performed. 2. 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 3. Splenomegaly, stable. Electronically Signed: Kvng Pantoja MD ([place]) at 13:16 EDT ,
[2023-04-28 08:10] LABS: CREATININE FINGERSTICK 1.8 mg/dL (0.70-1.30)
== END | disposition home or self-care (01) ==
PROVIDERS: PCP Student in an Organized Health Care Education/Training Program; Referring Provider Urology; Visit Provider Urology
DX: N28.1 Cyst of kidney, acquired (principal); D41.01 Neoplasm of uncertain behavior of right kidney
CPT/HCPCS: 74183; A9575

== ENCOUNTER 2023-11-23 18:06 | Inpatient (IN) | payer OTHER, SELFPAY ==
[2023-11-23] VITALS (16 sets, daily range): BP systolic 138–175; BP diastolic 84–102; PULSE 55–91; RESP 13–22; TEMP 36.2–36.8; O2SAT 83–99; BMI 43.8
--- NOTE | 2023-11-23 18:16 | ED.VIS.DYS ---
HPI History of Present Illness Chief Complaint: Shortness of Breath Informant: patient Onset/Context/Timing Onset: Days (3) Context: gradual Timing: Continuous Quality: Positive for Dyspnea on exertion Worsened by: Exertion Relieved by: Rest Associated Symptoms cough and white sputum; Negative for rhinorrhea, post nasal drip, fever, sore throat, chills, sweats, clear sputum, yellow sputum or green sputum Chest Pain: Positive for None Narrative Narrative: Patient presents with shortness of breath that has been getting progressively worse over the past 3 days. Patient states he has been having episodes of this for the past several months. Patient states his breathing is worse with any exertion. Patient states that has been constant for the past 3 days. Patient states it is better with rest. Patient admits to a cough with some white sputum. Patient denies any fevers or chills. Patient denies any chest pain. Patient denies any nausea or vomiting. Patient denies any diaphoresis. Patient does admit to some pain in the right side of his neck. PE Risk Factors: Negative for Cancer, OCP + Smoking + > 35, Prior DVT or PE, Recent immobilization, Recent surgery or Recent travel 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 Back pain BPH (benign prostatic hyperplasia) Cancer Cardiology follow-up encounter Chronic cough CPAP (continuous positive airway pressure) dependence Diverticulosis Easy bruising Essential hypertension Fatigue Fatty liver Former smoker High cholesterol History of echocardiogram History of edema History of pain when walking History of posttraumatic stress disorder (PTSD) History of renal disease History of stress test Hyperlipidemia Hypertension Restrictive lung disease Shortness of breath Shortness of breath on exertion Thoracic aortic aneurysm without rupture Vertigo Wears dentures Wears glasses Wears hearing aid Home Medications losartan 100 mg tablet 50 mg PO DAILY bp med 07/14/17 [History Last Taken 01/10/19] aspirin 81 mg tablet,delayed release 81 mg PO DAILY #90 tabs 12/22/18 [Rx Last Taken 11/02/22] potassium chloride 20 mEq tablet,extended release 20 meq PO BID #180 tabs 02/28/20 [Rx Last Taken Unknown] ggkkzhsrkbfp-mkdrhxoh-dhpgac tablet 1 tab PO DAILY 10/23/20 [History Last Taken 05/26/21 07:00] zinc 50 mg tablet 50 mg PO DAILY 10/23/20 [History Last Taken Unknown] amlodipine 5 mg tablet 5 mg PO DAILY 11/27/20 [History Last Taken 05/26/21 07:00] atorvastatin 40 mg tablet 40 mg PO QHS 11/27/20 [History Last Taken Unknown] furosemide 80 mg tablet 80 mg PO DAILY 11/27/20 [History Last Taken Unknown] sertraline 100 mg tablet 100 mg PO DAILY 11/27/20 [History Last Taken Unknown] tamsulosin 0.4 mg capsule 0.8 mg PO QHS urination 11/27/20 [History Last Taken Unknown] albuterol sulfate 90 mcg/actuation aerosol inhaler (ProAir HFA) 2 puff inhalation Q6H PRN SOB 12/02/20 [History Last Taken Unknown] cholecalciferol (vitamin D3) 125 mcg (5,000 unit) capsule 125 mcg PO DAILY 12/02/20 [History Last Taken Unknown] fluticasone propionate 50 mcg/actuation nasal spray,suspension (Allergy Relief (fluticasone)) 1 spray intranasal DAILY PRN allergy symptoms 12/02/20 [History Last Taken Unknown] fluticasone 250 mcg-salmeterol 50 mcg/dose blistr powdr for inhalation (Wixela Inhub) 1 inh inhalation BID 05/22/21 [History Last Taken Unknown] atenolol 50 mg tablet 50 mg PO QDAY #1 TAB 12/01/21 [Rx Last Taken Unknown] sertraline 50 mg tablet (Zoloft) 50 mg PO QHS 11/03/22 [History Last Taken Unknown] tiotropium bromide 2.5 mcg/actuation mist for inhalation (Spiriva Respimat) 2 inh inhalation DAILY 11/23/23 [History Last Taken Unknown] Allergy/AdvReac Type Severity Reaction Status Date / Time lisinopril AdvReac HEARTBURN Verified 11/23/23 18:21 Family History Father CAD (coronary artery disease) Mother Congestive heart failure Brother CAD (coronary artery disease) Hypertension Sister CAD (coronary artery disease) Hypertension Surgical History History of arthroscopy of left knee History of cardiac catheterization History of foot surgery History of left heart catheterization (LHC) (~05/21/19) History of tonsillectomy and adenoidectomy Hx of appendectomy Hx of decompressive lumbar laminectomy Status post right knee replacement Social History Smoking Status: Former smoker alcohol intake: current substance use type: does not use ROS ROS ED Constitutional Constitutional ED: Denies chills or fever(s) Eyes Eyes: Denies blurry vision or change in vision ENT ENT ED: Denies rhinorrhea or sore throat Cardiovascular Cardiovascular: Denies chest pain or palpitations Respiratory/Chest Respiratory/Chest: Reports cough, dyspnea and sputum Gastrointestinal Gastrointestinal: Denies nausea or vomiting Genitourinary Genitourinary ED: Denies dysuria or hematuria Musculoskeletal Musculoskeletal: Reports neck pain; Denies back pain Integumentary Denies abscess or rash Neurologic Neurologic: Denies headache(s) or weakness Allergic/Immunologic Allergic/Immunologic ED: Denies mouth swelling or urticaria EXAM Physical Exam Const Vital Signs: 11/23/23 18:07 11/23/23 18:08 11/23/23 18:12 Temperature 97.2 F L 97.2 F L 97.2 F L Temperature Source Temporal Temporal Temporal Pulse Rate 66 66 66 Respiratory Rate 19 H 17 17 Respiratory Effort Respiratory Depth Respiratory Pattern Blood Pressure 138/93 H 138/93 H 138/93 H Blood Pressure Mean 108 108 108 Pulse Ox 83 83 83 Oxygen Delivery Method Room Air Room Air Room Air Oxygen Flow Rate (L/min) 11/23/23 18:23 11/23/23 18:23 11/23/23 18:40 Temperature Temperature Source Pulse Rate 72 Respiratory Rate 17 Respiratory Effort Short of Breath Labored Accessory Muscle Use Nasal Flaring Respiratory Depth Shallow Respiratory Pattern Blood Pressure 156/102 H Blood Pressure Mean 120 Pulse Ox 94 93 Oxygen Delivery Method Room Air Nasal Cannula Nasal Cannula Oxygen Flow Rate (L/min) 2 2 11/23/23 18:45 11/23/23 19:12 11/23/23 19:52 Temperature 98 F 98 F Temperature Source Temporal Temporal Pulse Rate 91 58 L 57 L Respiratory Rate 18 14 15 Respiratory Effort Respiratory Depth Respiratory Pattern Normal Blood Pressure 175/91 H 163/87 H Blood Pressure Mean 119 112 Pulse Ox 95 95 Oxygen Delivery Method Nasal Cannula Nasal Cannula Oxygen Flow Rate (L/min) 2 2 11/23/23 20:00 11/23/23 21:37 11/23/23 21:59 Temperature 98 F Temperature Source Temporal Pulse Rate 57 L 74 58 L Respiratory Rate 16 16 13 Respiratory Effort Respiratory Depth Respiratory Pattern Blood Pressure 163/87 H 158/84 H 158/84 H Blood Pressure Mean 112 108 108 Pulse Ox 94 97 96 Oxygen Delivery Method Nasal Cannula Nasal Cannula Nasal Cannula Oxygen Flow Rate (L/min) 2 2 2 11/23/23 22:00 11/23/23 22:30 Temperature 98.3 F Temperature Source Pulse Rate 60 55 L Respiratory Rate 16 15 Respiratory Effort Respiratory Depth Respiratory Pattern Blood Pressure 157/87 H 157/84 H Blood Pressure Mean 110 108 Pulse Ox 96 96 Oxygen Delivery Method Nasal Cannula Oxygen Flow Rate (L/min) 2 Positive well nourished and well developed General Appearance ED: well developed and NAD HEENT Reports moist mucous membranes Neck supple and no meningeal signs Resp normal respiratory effort Auscultation: diminished lung sounds Cardio regular rhythm Rate: bradycardia GI non-tender and non-distended Palpation: soft Extremity General Extremety ED: Yes edema; Negative for tenderness General Extremity: edema Neuro oriented x3, CN's II-XII intact bilaterally and no sensory deficits noted [place] Coma Scale: document GCS findings Spontaneous Obeys Commands Oriented 15 Sensorium / Orientation: alert Motor Exam: strength 5/5 throughout Psych mental status grossly normal MDM MDM MDM Narrative Medical decision making narrative: Differential diagnosis includes congestive heart failure, cardiac dysrhythmia, cardiac ischemia, pneumonia, pneumothorax, and viral illness. EKG will be obtained to assess for cardiac dysrhythmia and cardiac ischemia. Chest x-ray will be obtained to assess for pneumonia and pneumothorax. CBC will be obtained to assess for leukocytosis and anemia. Basic metabolic profile will be obtained to assess for electrolyte abnormality and renal function. BNP will be obtained to assess for congestive heart failure. PT with INR and PTT will be obtained to assess for coagulopathy. High-sensitivity troponin will be obtained to assess for cardiac ischemia. 2-hour repeat high-sensitivity troponin will be obtained to assess for ongoing cardiac ischemia. COVID-19, influenza, and RSV PCR will be obtained to assess for viral illness. Lab Data Attestation: I reviewed the patient's lab results. Lab results narrative: CBC was reviewed. Hemoglobin was slightly low at 12.9 and hematocrit was 38.1. Platelets were slightly low at 102. Basic metabolic profile was reviewed. BUN was 31 and creatinine was 1.90. This is slightly increased from previous results. High-sensitivity troponin was reviewed and was normal at 20. BNP was reviewed and was normal at 94.9. COVID-19 PCR was reviewed and was negative. Influenza PCR was reviewed and was negative for influenza A and influenza B. RSV PCR was reviewed and was negative. Labs: Laboratory Results - last 24 hr 11/23/23 19:15 WBC 5.0 RBC 4.02 L Hgb 12.9 L Hct 38.1 L MCV 94.8 H MCH 32.1 H MCHC 33.9 RDW Std Deviation 46.5 H RDW Coeff of Jarrod 13.4 Plt Count 102 L MPV 9.6 Immature Gran % (Auto) 0.400 Neut % (Auto) 66.3 Lymph % (Auto) 23.0 Menard % (Auto) 8.3 Eos % (Auto) 1.2 Baso % (Auto) 0.8 Absolute Neuts (auto) 3.3 Absolute Lymphs (auto) 1.16 Nucleated RBC % 0 PT 14.7 INR 1.2 APTT 30.4 Sodium 141 Potassium 3.6 Chloride 105 Carbon Dioxide 32.0 Anion Gap 4 L BUN 31 H Creatinine 1.90 H Est GFR (MDRD) Af Amer 44 L Est GFR (MDRD) Non-Af 37 L BUN/Creatinine Ratio 16.3 Glucose 105 Calcium 8.5 Troponin I High Sens 20 B-Natriuretic Peptide 94.9 Radiography Diagnostic Testing: Clinical Impression(s) from Imaging Studies Chest X-Ray 11/23/23 19:38 IMPRESSION: Incomplete expansion of the lungs. Possible atelectasis or infiltrate of the lung bases. CT scan should be considered. Electronically Signed: Dorian Jimenez MD at 19:56 EDT , Chest CTA 11/23/23 20:39 IMPRESSION: Minor atelectasis within the dependent portion of the lungs and tiny calcified granuloma in left lower lobe. . No evidence for pulmonary embolus Electronically Signed: Rusty Granado MD at 21:49 EDT , PA and lateral chest x-ray was obtained. There are 2 views. On my independent interpretation, lung moon are not completely expanded. There is atelectasis of the lung bases. There is normal cardiac silhouette. Bony thorax is normal. There is no acute process noted. Radiologist also interpreted the x-ray and agrees. CTA of the chest was obtained. There is atelectasis in the dependent portion of the lungs. There is no evidence of pulmonary embolism. This was interpreted by the radiologist and was also independently reviewed by myself. EKG Initial EKG: Attestation: I personally reviewed and interpreted this EKG as follows: Interpretation: No Acute Injury Pattern and Sinus Bradycardia (57) Comments: EKG was obtained. On my independent interpretation, it showed a sinus bradycardia with first-degree AV block with a rate of 57. [place] interval was prolonged at 304 ms. QRS interval was slightly prolonged at 128 ms. QTc interval was normal. There is left axis deviation at -46. There is left ventricular hypertrophy. There are no acute changes noted. Prior EKG tracings: available for review Prior: Unchanged (12/22/2018) Management Discussion w/another healthcare provider: Hospitalist Treatment and Re-Evaluation :: Patient was given a DuoNeb aerosol here. Patient was given aspirin. Because of the patient's creatinine patient was given IV fluids prior to the CTA. Patient is not on home oxygen. Since the patient is hypoxic and gets short of breath with any ambulation, I recommended admission to the hospital. Case was discussed with the hospitalist. She will admit the patient to her service for observation. Patient and family understood and were agreeable with the plan. All questions were answered. Discharge Plan Triage Chief Complaint: Shortness of Breath ED Provider: Jackson Gabriel Dx/Rx/DC Orders Clinical Impression: Dyspnea on exertion, Essential hypertension, Hypoxia Prescriptions: No Action aspirin 81 mg tablet,delayed release (DR/EC) 81 mg PO DAILY Qty: 90 0RF potassium chloride 20 mEq tablet extended release 20 meq PO BID Qty: 180 3RF amlodipine 5 mg tablet 5 mg PO DAILY atorvastatin 40 mg tablet 40 mg PO QHS furosemide 80 mg tablet 80 mg PO DAILY sertraline 100 mg tablet 100 mg PO DAILY zinc 50 mg tablet 50 mg PO DAILY [id number] Tablet 1 tab PO DAILY atenolol 50 mg tablet 50 mg PO QDAY Qty: 1 0RF losartan 100 MG tablet 50 mg PO DAILY tamsulosin 0.4 mg capsule 0.8 mg PO QHS fluticasone propion-salmeterol [Wixela Inhub] 250-50 mcg/dose Blister With Device 1 inh INHALATION BID sertraline [Zoloft] 50 mg Tablet 50 mg PO QHS Spiriva Respimat 2.5 mcg/actuation mist 2 inh inhalation DAILY cholecalciferol (vitamin D3) 125 mcg (5,000 unit) capsule 125 mcg PO DAILY fluticasone propionate [Allergy Relief (fluticasone)] 50 mcg/actuation spray,suspension 1 spray INTRANASAL DAILY PRN (Reason: allergy symptoms) Rx Instructions: administer into each nostril albuterol sulfate [ProAir HFA] 90 mcg/actuation HFA aerosol inhaler 2 puff INHALATION Q6H PRN (Reason: SOB) Primary Care Provider: Vladimir Mehta Referrals: Vladimir Mehta DO [Primary Care Provider] - Disposition Disposition: Acute Care Hospital [facility]
--- NOTE | 2023-11-23 18:32 | EKG12_ITS ---
Test Reason : DYSRHYTHMIA Blood Pressure : / mmHG Vent. Rate : 057 BPM Atrial Rate : 057 BPM P-R Int : 304 ms QRS Dur : 128 ms QT Int : 458 ms P-R-T Axes : 013 -46 000 degrees QTc Int : 445 ms Sinus bradycardia with 1st degree A-V block Left axis deviation Left ventricular hypertrophy with QRS widening ( R in aVL , [place] product ) Abnormal ECG Confirmed by SHANTELL GIBSON, JERRICA ([id number]), photographic editor CHAKA GUERRA ([id number]) on 11/24/2023 9:38:16 AM Referred By: Confirmed By:JERRICA STINSON MD
[2023-11-23] MEDS: Ipratropium/Albuterol Sulfate 3 ML AMPUL.NEB INHALATION (18:45)
[2023-11-23] MEDS: Aspirin 81 MG TAB.CHEW 324 MG PO (18:59)
--- NOTE | 2023-11-23 19:38 | RAD_ITS ---
STUDY: X-RAY CHEST REASON FOR EXAM: Male, 78 years old. Shortness of breath TECHNIQUE: Single AP portable view of the chest. COMPARISON: CT of the chest 11/23/2023. FINDINGS: Low to moderate lung volumes. Ill-defined density in both lung bases suggestive of atelectasis or infiltrate. CT scan should be considered for better evaluation. No gross effusions. Normal size heart. Normal mediastinum and husam. Normal visualized pulmonary arteries. There is marked tortuosity of the aortic arch and descending thoracic aorta. There are diffuse degenerative changes of the visualized thoracic spine. Normal visualized ribs, clavicles, and shoulders. There is no demonstrated abnormality of the visualized soft tissue structures of the upper abdomen. RAD/Chest PA and Lateral IMPRESSION: Incomplete expansion of the lungs. Possible atelectasis or infiltrate of the lung bases. CT scan should be considered. Electronically Signed: Dorian Jimenez MD at 19:56 EDT ,
[2023-11-23 19:43] LABS: Absolute Lymphocyte Count 1.16 X10^3/uL (0.83-4.51); Absolute Neutrophil Count 3.3 X10^3/uL (2.0-7.7); Basophil# 0.04 X10^3/uL; Basophil% 0.8 % (0-1); Eosinophil# 0.06 X10^3/uL; Eosinophils% 1.2 % (0-5); Hematocrit 38.1 % (40-54); Hemoglobin 12.9 g/dL (13.0-16.5); Lymphocyte # 1.16 X10^3/ul (0.83-4.51); Mean Corp Hgb Conc 33.9 g/dL (32-36); Mean Corpuscular Hgb 32.1 pg (27.0-32.0); Mean Corpuscular Volume 94.8 fL (80-94); Mean Platelet Vol. 9.6 fl (6.2-12.0); Monocyte# 0.42 X10^3/uL; Monocyte% 8.3 % (0-10); NRBC Flagged by Analyzer 0 % (0-5); Neutrophil # 3.34 X10^3/uL (2.7-7.7); Neutrophil % 66.3 % (47-70); Platelet Count 102 K/mm3 (150-450); RBC Distribution Width CV 13.4 % (11.6-14.6); RBC Distribution Width SD 46.5 fl (35.1-43.9); Red Blood Count 4.02 M/mm3 (4.6-6.2)
[2023-11-23 19:59] LABS: International Normalized Ratio 1.2; Prothrombin Time (Protime)PT. 14.7 SECONDS (11.7-14.9)
[2023-11-23 20:00] LABS: Partial Thromboplast Time 30.4 Seconds (24.1-36.2)
[2023-11-23 20:09] LABS: Anion Gap 4 (5-15); BNP,B-Type NATRIURETIC PEPTIDE 94.9 pg/mL (0-100); BUN 31 mg/dL (7-18); BUN/Creat Ratio 16.3 RATIO (10-20); Calcium,Total 8.5 mg/dL (8.5-10.1); Chloride 105 mmol/L (98-107); EST Glomerular Filtration Rate 37 mL/min (>60); Est Glom Filt Rate - Afr Amer 44 mL/min (>60); Glucose 105 mg/dL (74-106); Potassium 3.6 mmol/L (3.5-5.1); Sodium Level 141 mmol/L (136-145); Troponin-I HS (w/2H Reflex) 20 pg/mL (3.0-78.0)
--- NOTE | 2023-11-23 20:39 | CT_ITS ---
STUDY: CTA CHEST REASON FOR EXAM: Male, 78 years old. Dyspnea RADIATION DOSAGE (If Supplied By Facility): CTDIvol = ( 11.84 ) mGy, DLP = ( 603.21 ) mGycm TECHNIQUE: The examination was performed with the intravenous administration of IV 100mL [id number]-300. Post-processing of the angiographic images was performed, with multiplanar reformation and 3D reconstruction. Individualized dose optimization techniques were used for this CT. COMPARISON: April 08, 2023. FINDINGS: Normal enhancement of the main pulmonary artery and right and left pulmonary arteries. Normal enhancement of the bilateral peripheral pulmonary arteries. There is no demonstrated pulmonary embolism. Atherosclerotic changes of the aorta without evidence for aneurysm periaortic leak or dissection. There is no demonstrated aortic dissection. Normal heart and pericardium. Tiny subcentimeter mediastinal nodes several of which are calcified.. Normal hilar regions. Normal visualized trachea and bronchi. The lungs are well expanded. Minor atelectasis within the dependent portion of the lungs. Tiny calcified granuloma in left lower lobe.. Normal pleura. Normal chest wall structures. Normal osseous structures. Tiny calcified gallstone without evidence for acute cholecystitis. Small bilateral renal cysts which will not require additional imaging CT/CTA Chest W/WO Contrast IMPRESSION: Minor atelectasis within the dependent portion of the lungs and tiny calcified granuloma in left lower lobe. . No evidence for pulmonary embolus Electronically Signed: Rusty Granado MD at 21:49 EDT ,
[2023-11-23] MEDS: 0.9% Normal Saline (1000mL) 1,000 ML 1000 ML IV (21:36)
[2023-11-23 21:38] LABS: Reflex Troponin-HS? (from REC) Y
--- NOTE | 2023-11-23 22:33 | HP.PCM.HOS_ITS ---
HPI - General General Date of Admission: 11/23/23 Date of Service: 11/23/23 Chief Complaint: Dyspnea, exertional HPI Narrative The patient is a 78 y/o M w/ PMHx: Obesity, Restrictive Lung Disease following with Pulmonary medicine in [place], nonobstructive thoracic aortic aneurysm, Anxiety and Depression/PTSD/Claustrophobia, nonobstructive CAD, HTN, HLD, YOVANI on CPAP, BPH, Chronic anemia, CKD stage III unclear subtype who presents to the [facility] ED on 11/23/23 with history of worsening dyspnea, worse with exertion and improves somewhat with rest over the last 3 days with an ongoing cough with white sputum reportedly although has had similar episodes over the last several months with no recent fevers or chills nor any URI type symptoms although he does report some right sided neck discomfort and given not improving prompted eventual ED ev aluation. Patient does report that he has had approximately a 10 pound weight gain over the last week and has had increased lower extremity swelling as well. Workup in the ED included T97.2, heart 66, BP 138/93, respiratory rate 19, initially noted to be 83% on room air with most recent repeat vital signs T98, heart rate 57, BP 163/87, respiratory rate 16, 94% on 2 L nasal cannula, CBC with WBC 5.0, hemoglobin 12.9, MCV 94.8, platelet 102 without marked shift, unremarkable coags, BMP with BUN/creatinine 31/1.90, GFR 37, troponin 20, BNP 94.9, rapid SARS COVID/influenza/RSV PCR negative, chest x-ray with possible infiltrate in the lung bases however incomplete expansion of the lungs as possib ly atelectasis, CTA chest with minor atelectasis within the dependent portion of the lungs and a tiny calcified granuloma in the left lower lobe with no evidence of any pulmonary emboli, EKG with sinus bradycardia with first-degree AV block with SD 304 ms with a QRS 128 ms, QTc normal, LVH with no acute changes from previously noted EKG 12/22/2018. In the ED patient ministered full-strength aspirin therapy and DuoNeb therapy. [facility] Medical History (Updated 11/23/23 @ 23:[address]jali [address] MD) Arthritis Atherosclerotic heart disease of [place] coronary artery without angina pectoris Back pain BPH (benign prostatic hyperplasia) Cancer Cardiology follow-up encounter Chronic cough CKD (chronic kidney disease), stage III Diverticulosis Easy bruising Essential hypertension Fatty liver Former smoker High cholesterol History of echocardiogram History of edema History of pain when walking History of posttraumatic stress disorder (PTSD) History of renal disease History of stress test Hyperlipidemia YOVANI on CPAP Restrictive lung disease Shortness of breath Shortness of breath on exertion Thoracic aortic aneurysm without rupture Wears dentures Wears glasses Wears hearing aid Home Medications losartan 100 mg tablet 50 mg PO DAILY bp med 07/14/17 [History Last Taken 01/10/19] aspirin 81 mg tablet,delayed release 81 mg PO DAILY #90 tabs 12/22/18 [Rx Last Taken 11/02/22] potassium chloride 20 mEq tablet,extended release 20 meq PO BID #180 tabs 02/28/20 [Rx Last Taken Unknown] mwjtakcnaxom-limpdksc-qlzvxw tablet 1 tab PO DAILY 10/23/20 [History Last Taken 05/26/21 07:00] zinc 50 mg tablet 50 mg PO DAILY 10/23/20 [History Last Taken Unknown] amlodipine 5 mg tablet 5 mg PO DAILY 11/27/20 [History Last Taken 05/26/21 07:00] atorvastatin 40 mg tablet 40 mg PO QHS 11/27/20 [History Last Taken Unknown] furosemide 80 mg tablet 80 mg PO DAILY 11/27/20 [History Last Taken Unknown] sertraline 100 mg tablet 100 mg PO DAILY 11/27/20 [History Last Taken Unknown] tamsulosin 0.4 mg capsule 0.8 mg PO QHS urination 11/27/20 [History Last Taken Unknown] albuterol sulfate 90 mcg/actuation aerosol inhaler (ProAir HFA) 2 puff inhalation Q6H PRN SOB 12/02/20 [History Last Taken Unknown] cholecalciferol (vitamin D3) 125 mcg (5,000 unit) capsule 125 mcg PO DAILY 12/02/20 [History Last Taken Unknown] fluticasone propionate 50 mcg/actuation nasal spray,suspension (Allergy Relief (fluticasone)) 1 spray intranasal DAILY PRN allergy symptoms 12/02/20 [History Last Taken Unknown] fluticasone 250 mcg-salmeterol 50 mcg/dose blistr powdr for inhalation (Robbi Inhub) 1 inh inhalation BID 05/22/21 [History Last Taken Unknown] atenolol 50 mg tablet 50 mg PO QDAY #1 TAB 12/01/21 [Rx Last Taken Unknown] sertraline 50 mg tablet (Zoloft) 50 mg PO QHS 11/03/22 [History Last Taken Unknown] tiotropium bromide 2.5 mcg/actuation mist for inhalation (Spiriva Respimat) 2 inh inhalation DAILY 11/23/23 [History Last Taken Unknown] Allergy/AdvReac Type Severity Reaction Status Date / Time lisinopril AdvReac HEARTBURN Verified 11/23/23 18:21 Family History Father CAD (coronary artery disease) Mother Congestive heart failure Brother CAD (coronary artery disease) Hypertension Sister CAD (coronary artery disease) Hypertension Surgical History History of arthroscopy of left knee History of cardiac catheterization History of foot surgery History of left heart catheterization (LHC) (~01/10/19) History of tonsillectomy and adenoidectomy Hx of appendectomy Hx of decompressive lumbar laminectomy Status post right knee replacement Social History (Updated 11/23/23 @ 23:[address]jali Lane MD) household members: spouse Smoking Status: Former smoker how long ago did patient quit smoking: Quit 17-18 years prior to 11/23/23 admit, smoked 1 ppd since teen until quit. alcohol intake: never substance use type: does not use ROS ROS Narrative Admission Review of Systems: CONSTITUTIONAL: No weight loss, fever, chills, + weakness or fatigue. HEENT: Eyes: No visual loss, blurred vision, double vision or yellow sclerae. Ears, Nose, Throat: No hearing loss, sneezing, congestion, runny nose or sore throat. SKIN: No rash or itching, lesions, wounds. CARDIOVASCULAR: + Increased lower extremity edema, weight gain. No marked orthopnea however. No chest pain, chest pressure or chest discomfort, palpitations, syncopal events. RESPIRATORY: + Exertional primarily shortness of breath, coughwith white sputum. No wheezing, hemoptysis. GASTROINTESTINAL: No anorexia, nausea, vomiting or diarrhea, abdominal pain, melena, BRBPR. GENITOURINARY: No dysuria, frequency, urgency or retention. NEUROLOGICAL: No headache, dizziness, syncope, paralysis, ataxia, numbness or tingling in the extremities, focal weakness, change in bowel or bladder control, seizure. MUSCULOSKELETAL: + muscle, back pain, joint pain or stiffness. HEMATOLOGIC: + Chronic anemia, easy bleeding/bruising. LYMPHATICS: No enlarged nodes. No history of splenectomy. PSYCHIATRIC: + History of depression and anxiety/PTSD. ENDOCRINOLOGIC: No reports of sweating, cold or heat intolerance. No polyuria or polydipsia. ALLERGIES: + History of restrictive lung disease, rhinitis. Vital Signs Vital Signs Vital Signs: 11/23/23 18:07 11/23/23 18:08 11/23/23 18:12 Temperature 97.2 F L 97.2 F L 97.2 F L Temperature Source Temporal Temporal Temporal Pulse Rate 66 66 66 Respiratory Rate 19 H 17 17 Respiratory Effort Respiratory Depth Respiratory Pattern Blood Pressure 138/93 H 138/93 H 138/93 H Blood Pressure Mean 108 108 108 Pulse Ox 83 83 83 Oxygen Delivery Method Room Air Room Air Room Air Oxygen Flow Rate (L/min) 11/23/23 18:23 11/23/23 18:23 11/23/23 18:40 Temperature Temperature Source Pulse Rate 72 Respiratory Rate 17 Respiratory Effort Short of Breath Labored Accessory Muscle Use Nasal Flaring Respiratory Depth Shallow Respiratory Pattern Blood Pressure 156/102 H Blood Pressure Mean 120 Pulse Ox 94 93 Oxygen Delivery Method Room Air Nasal Cannula Nasal Cannula Oxygen Flow Rate (L/min) 2 2 11/23/23 18:45 11/23/23 19:12 11/23/23 19:52 Temperature 98 F 98 F Temperature Source Temporal Temporal Pulse Rate 91 58 L 57 L Respiratory Rate 18 14 15 Respiratory Effort Respiratory Depth Respiratory Pattern Normal Blood Pressure 175/91 H 163/87 H Blood Pressure Mean 119 112 Pulse Ox 95 95 Oxygen Delivery Method Nasal Cannula Nasal Cannula Oxygen Flow Rate (L/min) 2 2 11/23/23 20:00 11/23/23 21:37 11/23/23 21:59 Temperature 98 F Temperature Source Temporal Pulse Rate 57 L 74 58 L Respiratory Rate 16 16 13 Respiratory Effort Respiratory Depth Respiratory Pattern Blood Pressure 163/87 H 158/84 H 158/84 H Blood Pressure Mean 112 108 108 Pulse Ox 94 97 96 Oxygen Delivery Method Nasal Cannula Nasal Cannula Nasal Cannula Oxygen Flow Rate (L/min) 2 2 2 11/23/23 22:00 11/23/23 22:30 Temperature 98.3 F Temperature Source Pulse Rate 60 55 L Respiratory Rate 16 15 Respiratory Effort Respiratory Depth Respiratory Pattern Blood Pressure 157/87 H 157/84 H Blood Pressure Mean 110 108 Pulse Ox 96 96 Oxygen Delivery Method Nasal Cannula Oxygen Flow Rate (L/min) 2 Physical Exam Narrative Physical Examination: General: Awake, alert, oriented x 3 and cooperative, laying in the ED bed, fatigued, denies any current dyspnea while at rest. Skin: Normal color, normal turgor, no icterus, no cyanosis except occasional staged ecchymoses, notable bilateral lower extremity venous stasis skin changes. HEENT: AT/NC, EOMI, PERRLA, MMM, no carotid bruits, difficult to assess JVD given very thickened neck. Lungs: Diminished, distant breath sounds however habitus makes evaluation difficult, no evidence of any distress, no overt rales, ronchi or wheezing. Heart: Mildly bradycardic with regular rhythm; no gallop, rub audible. Abdomen: Soft, morbidly obese, NTTP, distant bowel sounds, difficult appreciate distention and HSM given habitus. Extremities: No cyanosis, no clubbing, see skin, bilateral lower extremity pedal to proximal larson 2+ pitting edema. Neurological: Patient awake, alert, oriented as noted, cognitive function intact; pupils equally reactive to light and accommodation, cranial nerves II- XII grossly normal, moving all 4 extremities, no focal deficits, strength moderately to severely globally decreased secondary to acute presentation complaints. Psychiatric: Affect appears mildly fatigued otherwise normal, no acute evidence of depressive or anxiety feelings but does have underlying history as well as PTSD and claustrophobia documented is chart. Results Lab / Micro Data 11/23/23 19:15 11/23/23 19:15 Labs: Laboratory Results - last 24 hr 11/23/23 19:15: WBC 5.0, RBC 4.02 L, Hgb 12.9 L, Hct 38.1 L, MCV 94.8 H, MCH 32.1 H, MCHC 33.9, RDW Std Deviation 46.5 H, RDW Coeff of Jarrod 13.4, Plt Count 102 L, MPV 9.6, Immature Gran % (Auto) 0.400, Neut % (Auto) 66.3, Lymph % (Auto) 23.0, Burnet % (Auto) 8.3, Eos % (Auto) 1.2, Baso % (Auto) 0.8, Absolute Neuts (auto) 3.3, Absolute Lymphs (auto) 1.16, Nucleated RBC % 0, PT 14.7, INR 1.2, APTT 30.4, Sodium 141, Potassium 3.6, Chloride 105, Carbon Dioxide 32.0, Anion Gap 4 L, BUN 31 H, Creatinine 1.90 H, Est GFR (MDRD) Af Amer 44 L, Est GFR (MDRD) Non-Af 37 L, BUN/Creatinine Ratio 16.3, Glucose 105, Calcium 8.5, Troponin I High Sens 20, B-Natriuretic Peptide 94.9 Micro: Microbiology 11/23/23 18:50 Mucosa - Nasopharyngeal SARS-CoV-2, Influenza & RSV (PCR) - Final Imaging Radiology Impression Chest X-Ray 11/23/23 19:38 IMPRESSION: Incomplete expansion of the lungs. Possible atelectasis or infiltrate of the lung bases. CT scan should be considered. Electronically Signed: Dorian Jimenez MD at 19:56 EDT , Chest CTA 11/23/23 20:39 IMPRESSION: Minor atelectasis within the dependent portion of the lungs and tiny calcified granuloma in left lower lobe. . No evidence for pulmonary embolus Electronically Signed: Rusty Granado MD at 21:49 EDT , Assessment & Plan Assessment/Plan (1) Dyspnea on exertion: (2) Hypoxia: PLAN: Plan The patient is a 78 y/o M w/ PMHx: Obesity, Restrictive Lung Disease following with Pulmonary medicine in [place], nonobstructive thoracic aortic aneurysm, Anxiety and Depression/PTSD/Claustrophobia, nonobstructive CAD, HTN, HLD, YOVANI on CPAP, BPH, Chronic anemia, CKD stage III unclear subtype who presents to the [facility] ED on 11/23/23 with history of worsening dyspnea, worse with exertion and improves somewhat with rest over the last 3 days with an ongoing cough with white sputum reportedly although has had similar episodes over the last several months with no recent fevers or chills nor any URI type symptoms although he does report some right sided neck discomfort and given not improving prompted eventual ED evaluation. #1. Dyspnea, Exertional with associated hypoxia, unclear exact etiology, possibly multifactorial including Restrictive lung disease, possible worsening/progressing, Possible Cardiac etiology/overload given weight gain/edema (HF exacerbation, unclear type): Given follow-up CTPA with no overt findings no obvious acute pulmonary issue apparent but certainly does have underlying chart reported restrictive lung disease however to be cautious given also underlying cardiac disease, will admit to PCU, place on a monitored bed to assure no acute myocardial infarction with serial cardiac enzymes and EKGs. If repeat serial cardiac enzymes and EKGs remain unremarkable we will pursue a.m. cardiac stress testing to be cautious but lower suspicion of cardiac component, suspect likely more pulmonary but uncertain. Will request repeat echocardiogram as last noted 12/18/2021 with grossly normal LV size, wall motion and systolic function, EF 55%, mildly enlarged LA, trivial MVI, trivial TVI, mildly dilated aortic root, diastolic function indeterminate. Pending ECHO and further work-up as noted will pulse dose with IV lasix x [address] vanessa wraps if patient willing to tolerate. Restrictive lung disease noted in chart history, following with [facility] Silverio, most recent chest imaging 04/08/2023 chest CTA prior to current with no specific documented marked lung disease aside from pulmonary granulomas, unclear extent of this diagnosis, unclear if contributing to his current presentation and progressing as noted. Procalcitonin, sputum Cx, full respiratory viral panel requested. Will temporally hold home inhalers in the interim will transition to ATC budesonide therapy as well as as needed albuterol regimen. Pending work-up- as noted may consider Pulmonary medicine evaluation also. From prior records review he has prior been on home oxygen. #2. Nonobstructive CAD: Following with cardiology, most recent visit noted 03/25/2023, will continue aspirin, statin, losartan, atenolol home regimen. #3. Nonobstructive thoracic aortic aneurysm without rupture: Most recent noted chest CTA 04/08/2023 with borderline ascending aorta at 4 cm, encourage continued outpatient follow-up. #4. Chart documentation complex renal cysts: 04/28/2023 abdominal MRI with stable size complex lesion inferior right kidney with thickened septation and measurable enhancement, stable bilateral Bosniak type I and type II renal lesions as well as splenomegaly, encourage continued outpatient follow-up as previously arranged. [facility], encourage continued outpatient follow-up and reassessment/imaging as previously arranged. #5. Anxiety and depression/PTSD/claustrophobia: We will continue patient home sertraline regimen. #6. Chronic macrocytic anemia: Admission hemoglobin 12.9, most recent previous 12/27/2019 1914.5 however prior to this was primarily 11-12, no recent labs [facility], MCV 94.8. #7. Chronic thrombocytopenia, unclear etiology: Admission platelets 102, baseline prior primarily 110-130, stable, continue to trend, cautiously use chemoprophylaxis. #8. Chronic Kidney Disease Stage III, unclear subtype based on GFR trend: Admission BUN/Cr 31/1.90, GFR 37, baseline renal function primarily 1.5-1.7 however this is remote from 2019 thus suspect some elevation since his most likely etiology, repeat BMP in AM. #9. Hypertension: Continue home regimen including amlodipine, atenolol, Lasix, losartan, PRN hydralazine. #10. Hyperlipidemia: Continue home statin regimen. #11. Obesity: Weight loss and lifestyle changes encouraged. #12. Former tobacco use: Encourage continued tobacco cessation. #13. Allergic rhinitis: We will continue patient home fluticasone regimen. #14. BPH: We will continue patient on Flomax regimen #15. YOVANI: CPAP nightly. #16. DVT prophylaxis: Heparin. #17. CODE status: Patient PRABHA is he believes his but uncertain that it is actually formally set-up. He notes regardless his and son present would be his decision makers if necessary. He is also uncertain of living will. Discussed CODE status at length including difference between FULL code, DNR-CCA and DNR-CC status. Following discussions about the differences in these status, requested DNR-CCA, no intubation status. Advanced Care Planning Face to Face Time: 16 minutes. Charges/Coding Visit Charges Inpatient E&M: 18052 Init Hosp L3 Procedures Hospitalists Procedures: 78458 Advncd Care Plan 30 Min
--- NOTE | 2023-11-23 22:35 | ED.RN ---
ATTEMPTED TO CALL [facility] AT [id number], I WAS SENT TO THE TRANSFER LINE AND IT RANG UNTIL I WAS DISCONNECTED.
--- NOTE | 2023-11-23 22:39 | EKG12_ITS ---
Test Reason : CP Blood Pressure : / mmHG Vent. Rate : 059 BPM Atrial Rate : 000 BPM P-R Int : 000 ms QRS Dur : 128 ms QT Int : 464 ms P-R-T Axes : 000 -48 014 degrees QTc Int : 459 ms Sinus bradycardia with 1st degree A-V block Left axis deviation Left ventricular hypertrophy with QRS widening ( R in aVL , Marc product ) Abnormal ECG When compared with ECG of 23-NOV-2023 18:52, MANUAL COMPARISON REQUIRED, DATA IS UNCONFIRMED Confirmed by SHANTELL GIBSON, JERRICA ([id number]), features editor CHAKA GUERRA ([id number]) on 11/24/2023 9:41:33 AM Referred By: THOR Confirmed By:JERRICA STINSON MD
[2023-11-23 22:52] LABS: Troponin-I HS 22 pg/mL (3.0-78.0)
--- NOTE | 2023-11-23 23:26 | ECHOCS_ITS ---
Reason For Study: Dyspnea/SOB Procedure This was a 2D Doppler, Color Flow transthoracic echocardiogram. Contrast injection was performed. Exam performed portable in ICU/CCU. Left Ventricle Normal LV size. Mild concentric left ventricular hypertrophy. Left ventricular systolic function is normal. The estimated ejection fraction is 60 %. Stage 1 diastolic dysfunction. No regional wall motion abnormalities noted. Right Ventricle Normal RV size. Normal systolic function. Atria Normal left atrium. Normal right atrium. Mitral Valve Normal mitral valve. Tricuspid Valve Normal tricuspid valve. Mild tricuspid valve insufficiency. Pulmonary artery systolic pressure is 40 mmHg. Aortic Valve Trisinus/trileaflet aortic valve. Pulmonic Valve The pulmonic valve is not well visualized. Great Vessels Normal aortic root. The pulmonary artery is normal size. Inferior vena cava collapse with respiration. Pericardium/Pleural No pericardial effusion. Medication Diluted definity 3ml given slow IV push to enhance endocardial definition. MMode/2D Measurements & Calculations LVIDd: 6.2 cm IVSd: 1.3 cm Ao root diam: 3.7 cm LVIDs: 3.7 cm LVPWd: 1.2 cm RVDd: 4.6 cm FS: 41.1 % LAV(MOD-bp): 47.9 ml LVAd ap4: 40.3 cm2 SV(MOD-sp4): 102.7 ml LAV(MOD-bp) Indexed: 18.3 ml/m2 LVLd ap4: 8.6 cm LAV(MOD-sp2): 37.8 ml EDV(MOD-sp4): 152.5 ml LAV(MOD-sp4): 58.7 ml EDV(sp4-el): 159.2 ml LVAs ap4: 21.4 cm2 LVLs ap4: 7.6 cm ESV(MOD-sp4): 49.9 ml ESV(sp4-el): 51.1 ml EF(MOD-sp4): 67.3 % EF(sp4-el): 67.9 % SV(sp4-el): 108.0 ml LA A4 area: 21.2 cm2 LA dimension(2D): 5.0 cm RA A4 area: 16.5 cm2 TAPSE: 3.2 cm Time Measurements MV dec time: 0.33 sec Doppler Measurements & Calculations MV E max joss: 60.8 cm/sec Lat Peak E' Joss: 8.1 cm/sec Med Peak E' Joss: 7.2 cm/sec MV A max joss: 97.5 cm/sec E/E' lat: 7.5 E/E' med: 8.5 MV E/A: 0.62 MV dec slope: 186.9 cm/sec2 Ao V2 max: 134.1 cm/sec LV V1 max: 103.9 cm/sec Ao max P.2 mmHg LV V1 max P.3 mmHg Ao V2 mean: 96.2 cm/sec LV V1 mean P.7 mmHg Ao mean P.0 mmHg LV V1 mean: 77.1 cm/sec Ao V2 VTI: 32.9 cm LV V1 VTI: 27.4 cm AV (velocity ratio): 0.83 PA V2 max: 89.8 cm/sec TR max joss: 304.6 cm/sec TR max P.1 mmHg ECHO/Echo Complete W/ Contrast Interpretation Summary Normal LV size. Left ventricular systolic function is normal. The estimated ejection fraction is 60 %. Mild concentric left ventricular hypertrophy. Stage 1 diastolic dysfunction. Pulmonary artery systolic pressure is 40 mmHg. Contrast injection was performed. Ordering Physician: Anjali Lane Referring Physician: Vladimir Mehta Performed By: Brenda Rodrgíuez, LYNCS, RVT
[2023-11-23 23:40] LABS: Procalcitonin 0.04 ng/mL (0.00-0.09)
[2023-11-23 23:54] LABS: Magnesium 2.1 mg/dL (1.6-2.6)
[2023-11-23] MEDS: Albuterol 2.5 MG/3 ML VIAL.NEB. INHALATION (23:55)
[2023-11-23] MEDS: Budesonide Respules 0.5 MG/2 ML AMPUL.NEB. INHALATION (23:55)
[2023-11-24] VITALS (11 sets, daily range): BP systolic 110–173; BP diastolic 59–85; PULSE 51–61; RESP 12–94; TEMP 36.2–36.7; O2SAT 3–98; BMI 43.8; BMI 43.4
[2023-11-24] MEDS: 0.9% Saline Lock 10 ML Syringe IV (00:09)
[2023-11-24] MEDS: Furosemide 40 MG/4 ML Vial IV ×2 (00:09→11:03)
[2023-11-24 01:54] LABS: Troponin-I HS 23 pg/mL (3.0-78.0)
[2023-11-24 05:24] LABS: Absolute Lymphocyte Count 1.49 X10^3/uL (0.83-4.51); Absolute Neutrophil Count 3.3 X10^3/uL (2.0-7.7); Basophil# 0.03 X10^3/uL; Basophil% 0.6 % (0-1); Eosinophil# 0.09 X10^3/uL; Eosinophils% 1.7 % (0-5); Hemoglobin 12.9 g/dL (13.0-16.5); Lymphocyte # 1.49 X10^3/ul (0.83-4.51); Lymphocyte % 27.7 % (19-41); Mean Corp Hgb Conc 33.9 g/dL (32-36); Mean Corpuscular Hgb 32.3 pg (27.0-32.0); Mean Platelet Vol. 9.5 fl (6.2-12.0); Monocyte# 0.48 X10^3/uL; Monocyte% 8.9 % (0-10); NRBC Flagged by Analyzer 0 % (0-5); Neutrophil # 3.28 X10^3/uL (2.7-7.7); Neutrophil % 60.9 % (47-70); Platelet Count 100 K/mm3 (150-450); RBC Distribution Width CV 13.3 % (11.6-14.6); RBC Distribution Width SD 46.9 fl (35.1-43.9); White Blood Count 5.4 K/mm3 (4.4-11.0)
[2023-11-24 05:57] LABS: AST(SGOT) 22 U/L (15-37); Alanine Aminotransfer ALT/SGPT 22 U/L (16-61); Albumin, Serum 3.4 g/dL (3.2-5.0); Alkaline Phosphatase 66 U/L (45-117); Anion Gap 5 (5-15); BUN 29 mg/dL (7-18); BUN/Creat Ratio 16.2 RATIO (10-20); Calcium,Total 8.3 mg/dL (8.5-10.1); Chloride 106 mmol/L (98-107); Cholesterol 99 mg/dL (200); Creatinine, Serum 1.79 mg/dL (0.70-1.30); EST Glomerular Filtration Rate 39 mL/min (>60); Est Glom Filt Rate - Afr Amer 48 mL/min (>60); Estimated Creatinine Clearance 51.15 ml/min; Globulin 3.3 g/dL (2.2-4.2); Glucose 102 mg/dL (74-106); High Density Lipoprotein 39 mg/dL; Potassium 3.6 mmol/L (3.5-5.1); Protein, Total 6.7 g/dL (6.4-8.2); Sodium Level 143 mmol/L (136-145); Triglycerides 126 mg/dL; Very Low Density Lipoprotein 25 mg/dL (5-40)
[2023-11-24] MEDS: Budesonide Respules 0.5 MG/2 ML AMPUL.NEB. INHALATION ×2 (07:28→19:31)
--- NOTE | 2023-11-24 09:58 | CASEMGMT ---
CECILIO WHYTE Assessment: Face to Face with pt for initial transition planning/care coordination assessment. CECILIO WHYTE introduced self and role at [facility], pt voices understanding and consents to assessment. Pt is A&O x4 and answers all questions appropriately at this time. Pt lying in bed with oxygen on in no distress. Pt with dil, dtr and son in law in room. Pt agreeable to assessment with family present. Care providers, pharmacy, and demographics verified/updated. Admitting Dx: hypoxia, exertional dyspnea PCP:[facility] Specialists:pulm at [facility], cannot recall name Preferred Pharmacy: [facility] Insurance: [place], [facility] Prescription Benefit: yes LNOK: Jeanette Levine, Living Arrangements: Pt lives with , son and dil in a single story home with 2 steps to enter. Pt reports he is I in ADL's and denies concerns at home. Transportation: Pt drives self and denies concerns with transportation. DME:canes, BP cuff, pox, CPAP HHC/SNF: Denies hx of Pt states no concerns with going home at time of dc. Discussed verbal local in network DME companies should pt need oxygen upon dc, pt chose [employer]. Pt dil states pt has decreased stamina with ambulation. Pt states this is due to pain in his back and his breathing. He states he has been told by several doctors there is not anything that can be done for the pain. He states pain mgmt was offered but he is not interested. Pt reports using pain patches. Pt denies need for therapy for this as he has done in the past. Pt states no further concerns/needs. CM to follow. Advised pt to ask CM if any further question/concerns/needs arise, voices understanding. Pt Goal: Home Plan: Home, follow for oxygen Feliz HERNANDES CM
[2023-11-24] MEDS: amLODIPine 5 MG Tablet PO (10:33)
[2023-11-24] MEDS: Sertraline 100 MG Tablet 150 MG PO (10:33)
[2023-11-24] MEDS: Losartan Potassium 50 MG Tablet PO (10:33)
[2023-11-24] MEDS: Atenolol 50 MG Tablet PO (10:33)
[2023-11-24] MEDS: Heparin Injection (Vial) 5,000 UNIT/ML VIAL 5000 UNIT SC ×2 (11:03→22:19)
[2023-11-24] MEDS: Aspirin E.C. 81 MG Tablet PO (11:04)
--- NOTE | 2023-11-24 12:21 | PCM.PN.HOSP ---
Reason for Visit Reason for Visit: Diagnoses Other forms of dyspnea (11/23/23) Hypoxemia (11/23/23) Subjective Subjective Patient admitted overnight for worsening dyspnea on exertion. No acute events overnight. Patient seen at bedside this morning, multiple family numbers present. Patient was sitting up comfortably in bed, conversing normally, in no acute distress. He was breathing comfortably on 3 L nasal cannula with good oxygen saturations. Patient just got back from nuclear stress test when I saw him, stated that he had mild dyspnea during the test but otherwise tolerated it fine. He had not had the echo done yet this morning. Patient stated that he felt comfortable at rest, denied any chest pain or shortness of breath. Denied any cough or sputum production this morning. Denied any fevers or chills. No other acute concerns at this time. Objective Data Objective Data Vital Signs: Vital Signs Temp Pulse Resp BP Pulse Ox O2 Del Method O2 Flow Rate 97.1 F L 57 L 94 H 148/79 H 3 Nasal Cannula 2 11/24/23 11:00 11/24/23 11:00 11/24/23 11:00 11/24/23 11:00 11/24/23 11:00 11/24/23 11:00 11/24/23 11:18 FiO2 30 11/24/23 03:15 Oxygen Flow Rate (L/min) 2 Oxygen Delivery Method Nasal Cannula Weight: 145.2 kg Body Mass Index (BMI) 43.4 Intake & Output: Intake and Output for Last 24 Hours 11/22/23 11/23/23 11/24/23 23:59 23:59 23:59 Intake Total 1000 / 1000 75 / 75 Output Total 1500 / 1500 Balance 1000 / 700 -1425 / -1425 Lab / Micro Data 11/24/23 04:55 11/24/23 04:55 Labs: Laboratory Results - last 24 hr 11/23/23 19:15: WBC 5.0, RBC 4.02 L, Hgb 12.9 L, Hct 38.1 L, MCV 94.8 H, MCH 32.1 H, MCHC 33.9, RDW Std Deviation 46.5 H, RDW Coeff of Jarrod 13.4, Plt Count 102 L, MPV 9.6, Immature Gran % (Auto) 0.400, Neut % (Auto) 66.3, Lymph % (Auto) 23.0, [place] % (Auto) 8.3, Eos % (Auto) 1.2, Baso % (Auto) 0.8, Absolute Neuts (auto) 3.3, Absolute Lymphs (auto) 1.16, Nucleated RBC % 0, PT 14.7, INR 1.2, APTT 30.4, Sodium 141, Potassium 3.6, Chloride 105, Carbon Dioxide 32.0, Anion Gap 4 L, BUN 31 H, Creatinine 1.90 H, Est GFR (MDRD) Af Amer 44 L, Est GFR (MDRD) Non-Af 37 L, BUN/Creatinine Ratio 16.3, Glucose 105, Calcium 8.5, Troponin I High Sens 20, B-Natriuretic Peptide 94.9, Procalcitonin 0.04 11/23/23 22:10: Magnesium 2.1, Troponin I High Sens 22 11/24/23 01:20: Troponin I High Sens 23 11/24/23 04:55: WBC 5.4, RBC 4.00 L, Hgb 12.9 L, Hct 38.0 L, MCV 95.0 H, MCH 32.3 H, MCHC 33.9, RDW Std Deviation 46.9 H, RDW Coeff of Jarrod 13.3, Plt Count 100 L, MPV 9.5, Immature Gran % (Auto) 0.200, Neut % (Auto) 60.9, Lymph % (Auto) 27.7, [place] % (Auto) 8.9, Eos % (Auto) 1.7, Baso % (Auto) 0.6, Absolute Neuts (auto) 3.3, Absolute Lymphs (auto) 1.49, Nucleated RBC % 0, Sodium 143, Potassium 3.6, Chloride 106, Carbon Dioxide 32.0, Anion Gap 5, BUN 29 H, Creatinine 1.79 H, Estim Creat Clear Calc 51.15, Est GFR (MDRD) Af Amer 48 L, Est GFR (MDRD) Non-Af 39 L, BUN/Creatinine Ratio 16.2, Glucose 102, Calcium 8.3 L, Total Bilirubin 1.80 H, AST 22, ALT 22, Alkaline Phosphatase 66, Total Protein 6.7, Albumin 3.4, Globulin 3.3, Albumin/Globulin Ratio 1.0, Triglycerides 126, Cholesterol 99, LDL Cholesterol 35, VLDL Cholesterol 25, HDL Cholesterol 39 L Micro: Microbiology 11/23/23 23:45 Mucosa - Nasopharyngeal Respiratory Panel (PCR) - Final 11/23/23 18:50 Mucosa - Nasopharyngeal SARS-CoV-2, Influenza & RSV (PCR) - Final Radiography Diagnostic Testing: Radiology Impression Chest X-Ray 11/23/23 19:38 IMPRESSION: Incomplete expansion of the lungs. Possible atelectasis or infiltrate of the lung bases. CT scan should be considered. Electronically Signed: Dorian Jimenez MD at 19:56 EDT , Chest CTA 11/23/23 20:39 IMPRESSION: Minor atelectasis within the dependent portion of the lungs and tiny calcified granuloma in left lower lobe. . No evidence for pulmonary embolus Electronically Signed: Rusty Granado MD at 21:49 EDT , Physical Exam Const alert, oriented x3 and no apparent distress Constitutional Narrative: Pleasant elderly male, morbidly obese, sitting up comfortably in bed, conversing normally, no acute distress. General Appearance: cooperative and comfortable HEENT normocephalic, head/scalp atraumatic, hearing grossly normal bilaterally, nasal mucous membranes and turbinates normal and moist oral mucous membranes Eyes PERRL, EOMs intact bilaterally and conjunctivae normal Neck full ROM Chest inspection of chest normal Resp normal respiratory effort and no use of accessory muscles Resp Narrative: Breathing comfortably on 3 L nasal cannula at rest. Mild to moderately decreased breath sounds bilaterally throughout, no wheezing or crackles noted. Exam limited by body habitus. Cardio regular rate, regular rhythm, no murmurs and peripheral pulses 2+ throughout GI normal to inspection, nondistended, normoactive bowel sounds, soft to palpation, non-tender and non-distended Back/Spine normal ROM Extremity normal to inspection, full ROM and no pedal edema Skin no rashes or lesions noted Neuro no focal motor deficits Speech: speech normal Psych mental status grossly normal Assessment & Plan Assessment/Plan (1) Hypoxia: (2) Dyspnea on exertion: PLAN: Plan Patient is a 78-year-old male who presented [facility] ED on 11/23/2023 with worsening dyspnea on exertion. 1. Worsening dyspnea on exertion with acute hypoxia; history of restrictive lung disease Unclear etiology at this time. Known history of restrictive lung disease, follows with pulmonary medicine in [place]. Has never been on supplemental O2 at home. Chest x-ray on admit showed incomplete expansion of the lungs, possible atelectasis or infiltrate of lung bases. CTA chest showed no PE, minor atelectasis within dependent portion of the lungs, tiny calcified granuloma in left lower lobe. Requiring 3 L nasal cannula at rest to maintain oxygen saturations greater than 90%. Otherwise hemodynamically stable, afebrile, no leukocytosis, noninfectious appearing, respiratory PCR panel negative, procal negative so low concern for infectious etiology. Echo on 11/23 showed EF 60%, stage I diastolic dysfunction, mild concentric LV hypertrophy, elevated pulmonary artery systolic pressure of 40 mmHg. Last echo in 2021 was poor quality but it appears echo on admit is slightly worse than previous. Stress test completed on 11/23, results pending. ? Follow-up stress test results once available. Continue to wean supplemental oxygen as able. Continue home scheduled long-acting inhalers and short acting inhaler as needed. 2. CKD stage III ? Creatinine 1.90 on admit, stable at 1.79 on hospital day 2. No previous creatinine values since 2019 but was around 1.5-1.7 at that time. Suspect patient is at his baseline. Has had good urine output. Will need to monitor daily BMP and urine output after contrast was given for CTA chest on admit. Chronic medical conditions: ? Morbid obesity: BMI 43 on admit. Complicates hospital course, care and prognosis. ? Nonobstructive CAD, hypertension, hyperlipidemia: Continue home aspirin, statin, losartan, atenolol, Lasix. ? Anxiety/depression: Stable. Continue home sertraline. ? Former tobacco use: Encouraged continued cessation. ? Allergic rhinitis: Continue home fluticasone. ? BPH with obstructive symptoms: Continue home Flomax. ? YOVANI: Continue CPAP at night. DVT prophylaxis: Heparin subcu CODE STATUS: DNR CCA, DNI Expected disposition: Home, 1 to 2 days Total clinical time spent by myself addressing the patient's medical issues, reviewing all the data, and collaborating with patient's care team: 35 minutes. Charges/Coding Visit Charges Inpatient E&M: 84946 Subs Hosp L2
--- NOTE | 2023-11-24 17:52 | STRESSREP ---
Stress Test Report Pharmacologic myocardial perfusion stress test. 78-year-old man with a history of shortness of breath and chest pain Resting EKG demonstrates sinus bradycardia with a rate of 53 bpm. Resting blood pressure is 130/9 mmHg. 0.4 mg of regadenoson was infused per usual protocol followed by rapid intravenous saline flush injection. Continuous EKG monitoring was performed. The maximum heart rate was 64 bpm which was 44% of max impacted heart rate the maximum workload was 1 metabolic equivalent. At rest there were no ST or T wave changes noted to suggest ischemia and at peak infusion nonspecific ST changes were noted which did not meet the criteria for ischemia. No clinical angina is noted. The final blood pressure was 130/68 mmHg. Myocardial perfusion protocol. 15 mCi of technetium 99m sestamibi was injected at rest. 0.4 mg of regadenoson was infused per usual protocol. At peak infusion 44 point mCi of technetium 99m sestamibi was injected stress images were obtained stress and rest images were reconstructed and compared in the short axis vertical long and horizontal long axis. Gated images were also obtained. Perfusion SPECT analysis: Review of the stress images demonstrate normal uptake of tracer noted in all areas of the myocardium. There is a small area in the inferior apical wall with mildly reduced perfusion the resting images similar demonstrated normal uptake of tracer noted in all areas of the myocardium. A persistent area in the inferoapical wall with mildly reduced perfusion. GI attenuation artifact is likely. No areas of reversibility are noted to suggest ischemia and no previous infarct is noted. Gated SPECT analysis: The gated ejection fraction is 65%. Conclusion: Normal pharmacologic myocardial perfusion stress test. Preserved ejection fraction.
[2023-11-24] MEDS: Tamsulosin HCl 0.4 MG Capsule 0.8 MG PO (22:18)
[2023-11-24] MEDS: Atorvastatin Calcium 40 MG Tablet PO (22:18)
[2023-11-25] VITALS (7 sets, daily range): BP systolic 123–137; BP diastolic 61–81; PULSE 47–56; RESP 14–16; TEMP 36.2–36.4; O2SAT 80–96; BMI 42.9
[2023-11-25 05:12] LABS: Anion Gap 4 (5-15); BUN 30 mg/dL (7-18); BUN/Creat Ratio 16.8 RATIO (10-20); Calcium,Total 8.7 mg/dL (8.5-10.1); Chloride 105 mmol/L (98-107); Creatinine, Serum 1.79 mg/dL (0.70-1.30); EST Glomerular Filtration Rate 39 mL/min (>60); Est Glom Filt Rate - Afr Amer 48 mL/min (>60); Estimated Creatinine Clearance 50.82 ml/min; Glucose 104 mg/dL (74-106); Potassium 3.7 mmol/L (3.5-5.1); Sodium Level 141 mmol/L (136-145)
[2023-11-25] MEDS: Budesonide Respules 0.5 MG/2 ML AMPUL.NEB. INHALATION (07:15)
[2023-11-25] MEDS: Heparin Injection (Vial) 5,000 UNIT/ML VIAL 5000 UNIT SC (08:33)
[2023-11-25] MEDS: Furosemide 80 MG Tablet PO (08:34)
[2023-11-25] MEDS: Aspirin E.C. 81 MG Tablet PO (08:34)
[2023-11-25] MEDS: Sertraline 100 MG Tablet 150 MG PO (08:34)
[2023-11-25] MEDS: Losartan Potassium 50 MG Tablet PO (08:37)
--- NOTE | 2023-11-25 09:35 | CASEMGMT ---
[facility] and updated [facility].
--- NOTE | 2023-11-25 13:50 | DCINST_ITS ---
Discharge Instructions Diet Discharge Diet: No restrictions Activity Discharge Activity: No Restrictions Weight Bearing Status: Full weight bearing Follow Up Care Test Results: Test results from this visit will be discussed in further detail at your follow- up appointment, if applicable. Discharge Plan Admission Admit Date/Time: 11/24/23 15:44 Primary Reason for Your Visit: Worsening shortness of breath Attending Provider: Virgil Floyd Primary Care Provider: Vladimir Mehta Consulting Providers: Anjali Lane Instructions Additional Instructions / Restrictions: Spoke with Dr. Melo over the phone on day of discharge and he agreed with our assessment. Recommended that you call his office in the next few weeks to schedule a follow-up appointment. Continue all other home medications as normal. Discharge Orders/Prescriptions Prescriptions: Continued aspirin 81 mg tablet,delayed release (DR/EC) 81 mg PO DAILY Qty: 90 0RF potassium chloride 20 mEq tablet extended release 20 meq PO BID Qty: 180 3RF amlodipine 5 mg tablet 5 mg PO DAILY atorvastatin 40 mg tablet 40 mg PO QHS furosemide 80 mg tablet 80 mg PO DAILY sertraline 100 mg tablet 150 mg PO DAILY zinc 50 mg tablet 50 mg PO DAILY oproexravxol-sopmozya-znutzf Tablet 1 tab PO DAILY atenolol 50 mg tablet 50 mg PO QDAY Qty: 1 0RF losartan 100 MG tablet 50 mg PO DAILY tamsulosin 0.4 mg capsule 0.8 mg PO QHS fluticasone propion-salmeterol [Wixela Inhub] 250-50 mcg/dose Blister With Device 1 inh INHALATION BID sertraline [Zoloft] 50 mg Tablet 50 mg PO QHS Spiriva Respimat 2.5 mcg/actuation mist 2 inh inhalation DAILY cholecalciferol (vitamin D3) 125 mcg (5,000 unit) capsule 125 mcg PO DAILY fluticasone propionate [Allergy Relief (fluticasone)] 50 mcg/actuation spray,suspension 1 spray INTRANASAL DAILY PRN (Reason: allergy symptoms) Rx Instructions: administer into each nostril albuterol sulfate [ProAir HFA] 90 mcg/actuation HFA aerosol inhaler 2 puff INHALATION Q6H PRN (Reason: SOB) Referrals / Follow Up: Vladimir Mehta DO [Primary Care Provider] - Disposition Disposition (needs filled in before D/C Order can be placed): Home, Self Care
--- NOTE | 2023-11-25 13:52 | CASEMGMT ---
Addendum entered by Rosalidna Tay 11/25/23 14:22: Provided portable tank from stock per request of [employer] to pt room. Updated pt nurse that pt is ready to dc from [facility] standpoint. Original Note: Pt qualifies for home oxygen. RN CM into pt room, pt with family present. Pt again states he would like [employer] for his O2 needs and nebulizer. Reviewed homegoing oxygen instructions. Pt has pox. Pt denies need for HHC or Patient Link. Pt to take a list of BP readings to PCP as pt dil concerned of BP. Pt and family deny any further needs at this time. Referral sent to [facility] via [facility].
--- NOTE | 2023-11-25 13:54 | PCM.DC.SUM ---
Providers Date of Admission: 11/23/23 Date of Discharge: 11/25/23 Primary Care Physician: Dr. Vladimir Mehta DO Reason For Visit: HYPOXIA, EXERTIONAL DYSPNEA Diagnosis Discharge Diagnosis (1) Hypoxia: Status: Acute Code(s): R09.02 - Hypoxemia (2) Dyspnea on exertion: Status: Acute Code(s): R06.09 - Other forms of dyspnea Medications at Discharge Home Medications losartan 100 mg tablet 50 mg PO DAILY bp med 07/14/17 aspirin 81 mg tablet,delayed release 81 mg PO DAILY #90 tabs 12/22/18 potassium chloride 20 mEq tablet,extended release 20 meq PO BID #180 tabs 02/28/20 askpcyfzxhtr-mbgxvnuv-iwpoei tablet 1 tab PO DAILY 10/23/20 zinc 50 mg tablet 50 mg PO DAILY 10/23/20 amlodipine 5 mg tablet 5 mg PO DAILY 11/27/20 atorvastatin 40 mg tablet 40 mg PO QHS 11/27/20 furosemide 80 mg tablet 80 mg PO DAILY 11/27/20 sertraline 100 mg tablet 150 mg PO DAILY 11/27/20 tamsulosin 0.4 mg capsule 0.8 mg PO QHS urination 11/27/20 albuterol sulfate 90 mcg/actuation aerosol inhaler (ProAir HFA) 2 puff inhalation Q6H PRN SOB 12/02/20 cholecalciferol (vitamin D3) 125 mcg (5,000 unit) capsule 125 mcg PO DAILY 12/02/20 fluticasone propionate 50 mcg/actuation nasal spray,suspension (Allergy Relief (fluticasone)) 1 spray intranasal DAILY PRN allergy symptoms 12/02/20 fluticasone 250 mcg-salmeterol 50 mcg/dose blistr powdr for inhalation (Wixela Inhub) 1 inh inhalation BID 05/22/21 atenolol 50 mg tablet 50 mg PO QDAY #1 TAB 12/01/21 sertraline 50 mg tablet (Zoloft) 50 mg PO QHS 11/03/22 tiotropium bromide 2.5 mcg/actuation mist for inhalation (Spiriva Respimat) 2 inh inhalation DAILY 11/23/23 Hospital Course Operations None Procedures EKG, Stress test, Transthoracic echo and - (Chest x-ray, CTA chest) Summary of Care Provided Minutes Spent on Discharge: 35 Hospital Course: Patient is a 78-year-old male who presented [facility] ED on 11/23/2023 with worsening dyspnea on exertion. Hospital course as noted below. Discharged home with supplemental oxygen in stable condition on 11/24. 1. Worsening dyspnea on exertion with acute hypoxia; history of restrictive lung disease Unclear etiology at this time. Known history of restrictive lung disease, follows with pulmonary medicine in [place]. Has never been on supplemental O2 at home. Chest x-ray on admit showed incomplete expansion of the lungs, possible atelectasis or infiltrate of lung bases. CTA chest showed no PE, minor atelectasis within dependent portion of the lungs, tiny calcified granuloma in left lower lobe. Requiring 3 L nasal cannula at rest to maintain oxygen saturations greater than 90%. Otherwise hemodynamically stable, afebrile, no leukocytosis, noninfectious appearing, respiratory PCR panel negative, procal negative so low concern for infectious etiology. Echo on 11/23 showed EF 60%, stage I diastolic dysfunction, mild concentric LV hypertrophy, elevated pulmonary artery systolic pressure of 40 mmHg. Last echo in 2021 was poor quality but it appears echo on admit is slightly worse than previous. Stress test 11/23 was normal. ? Workup for identifiable acute etiology such as PE, CAD or pneumonia otherwise negative. Discussed with patient's outpatient ramp manager Dr. Melo over the phone on day of discharge, who noted that patient was satting 90% on room air in his office 3 weeks ago and there was concern then that patient would need supplemental oxygen with exertion, but patient refused at that time. Suspected that this is largely due to progression of his underlying lung disease. Oxygen ambulatory test done on day of discharge, patient required 2 L oxygen at rest and 6 L oxygen with exertion. I have reviewed the oxygen testing, and this patient qualifies for the home equipment and portability. The patient is mobile in the home and the community. Continue home inhalers on discharge. Outpatient follow-up with Dr. Melo as needed. 2. CKD stage III ? Creatinine 1.90 on admit, stable at 1.79 on hospital day 2. No previous creatinine values since 2019 but was around 1.5-1.7 at that time. Suspect patient is at his baseline. Creatinine remained stable during hospitalization and patient had good urine output. Outpatient follow-up for CKD as needed. Chronic medical conditions: ? Morbid obesity: BMI 43 on admit. Complicates hospital course, care and prognosis. ? Nonobstructive CAD, hypertension, hyperlipidemia: Continue home aspirin, statin, losartan, atenolol, Lasix. ? Anxiety/depression: Stable. Continue home sertraline. ? Former tobacco use: Encouraged continued cessation. ? Allergic rhinitis: Continue home fluticasone. ? BPH with obstructive symptoms: Continue home Flomax. ? OYVANI: Continue CPAP at night. Total clinical time spent by myself addressing the patient's medical issues, reviewing all the data, and collaborating with patient's care team: 35 minutes. Physical Exam Const alert, oriented x3 and no apparent distress Constitutional Narrative: Pleasant elderly male, morbidly obese, sitting up comfortably in bed, conversing normally, no acute distress. General Appearance: cooperative and comfortable HEENT normocephalic, head/scalp atraumatic, hearing grossly normal bilaterally, nasal mucous membranes and turbinates normal and moist oral mucous membranes Eyes PERRL, EOMs intact bilaterally and conjunctivae normal Neck full ROM Chest inspection of chest normal Resp normal respiratory effort and no use of accessory muscles Resp Narrative: Breathing comfortably on 2 L nasal cannula at rest. Mild to moderately decreased breath sounds bilaterally throughout, no wheezing or crackles noted. Exam limited by body habitus. Cardio regular rate, regular rhythm, no murmurs and peripheral pulses 2+ throughout GI normal to inspection, nondistended, normoactive bowel sounds, soft to palpation, non-tender and non-distended Back/Spine normal ROM Extremity normal to inspection, full ROM and no pedal edema Skin no rashes or lesions noted Neuro no focal motor deficits Speech: speech normal Psych mental status grossly normal Weight / BMI Weight Weight: 143.5 kg Body Mass Index (BMI) 42.9 ABG / Lab / Microbiology Data 11/24/23 04:55 11/25/23 04:30 Laboratory: Laboratory Results - last 24 hr 11/25/23 04:30: Sodium 141, Potassium 3.7, Chloride 105, Carbon Dioxide 32.0, Anion Gap 4 L, BUN 30 H, Creatinine 1.79 H, Estim Creat Clear Calc 50.82, Est GFR (MDRD) Af Amer 48 L, Est GFR (MDRD) Non-Af 39 L, BUN/Creatinine Ratio 16.8, Glucose 104, Calcium 8.7 Microbiology: Microbiology 11/23/23 23:45 Mucosa - Nasopharyngeal Respiratory Panel (PCR) - Final 11/23/23 18:50 Mucosa - Nasopharyngeal SARS-CoV-2, Influenza & RSV (PCR) - Final D/C Instructions Discharge Diet: No restrictions Weight Bearing Status: Full weight bearing Meaningful Use Info Meaningful Use Diagnoses (Choose all that apply): None applicable Discharge Plan Admission Admit Date/Time: 11/24/23 15:44 Primary Reason for Your Visit: Worsening shortness of breath Attending Provider: Virgil Flody Primary Care Provider: Vladimir Mehta Consulting Providers: Anjali Lane Instructions Additional Instructions / Restrictions: Spoke with Dr. Melo over the phone on day of discharge and he agreed with our assessment. Recommended that you call his office in the next few weeks to schedule a follow-up appointment. Continue all other home medications as normal. Discharge Orders/Prescriptions Prescriptions: Continued aspirin 81 mg tablet,delayed release (DR/EC) 81 mg PO DAILY Qty: 90 0RF potassium chloride 20 mEq tablet extended release 20 meq PO BID Qty: 180 3RF amlodipine 5 mg tablet 5 mg PO DAILY atorvastatin 40 mg tablet 40 mg PO QHS furosemide 80 mg tablet 80 mg PO DAILY sertraline 100 mg tablet 150 mg PO DAILY zinc 50 mg tablet 50 mg PO DAILY qyubjltsnlob-jsugyujg-lvaxtd Tablet 1 tab PO DAILY atenolol 50 mg tablet 50 mg PO QDAY Qty: 1 0RF losartan 100 MG tablet 50 mg PO DAILY tamsulosin 0.4 mg capsule 0.8 mg PO QHS fluticasone propion-salmeterol [Wixela Inhub] 250-50 mcg/dose Blister With Device 1 inh INHALATION BID sertraline [Zoloft] 50 mg Tablet 50 mg PO QHS Spiriva Respimat 2.5 mcg/actuation mist 2 inh inhalation DAILY cholecalciferol (vitamin D3) 125 mcg (5,000 unit) capsule 125 mcg PO DAILY fluticasone propionate [Allergy Relief (fluticasone)] 50 mcg/actuation spray,suspension 1 spray INTRANASAL DAILY PRN (Reason: allergy symptoms) Rx Instructions: administer into each nostril albuterol sulfate [ProAir HFA] 90 mcg/actuation HFA aerosol inhaler 2 puff INHALATION Q6H PRN (Reason: SOB) Referrals / Follow Up: Vladimir Mehta DO [Primary Care Provider] - Disposition Disposition (needs filled in before D/C Order can be placed): Home, Self Care Charges/Coding Visit Charges Inpatient E&M: 47923 Disch Hosp >30min
== END 2023-11-25 15:20 | disposition home or self-care (01) | DRG 206 ==
LOC: ED 22:42 → ICU 22:56
PROVIDERS: Admitting Provider Family Medicine; Emergency Provider Emergency Medicine; PCP Student in an Organized Health Care Education/Training Program; Visit Provider Hospitalist
DX: J98.4 Other disorders of lung (principal); N13.8 Other obstructive and reflux uropathy; Z68.41 Body mass index [BMI] 40.0-44.9, adult; I71.20 Thoracic aortic aneurysm, without rupture, unspecified; N18.30 Chronic kidney disease, stage 3 unspecified; E66.01 Morbid (severe) obesity due to excess calories; F32.A Depression, unspecified; I12.9 Hypertensive chronic kidney disease with stage 1 through stage 4 chronic kidney disease, or unspecified chronic kidney disease; G47.33 Obstructive sleep apnea (adult) (pediatric); I25.10 Atherosclerotic heart disease of native coronary artery without angina pectoris; J30.9 Allergic rhinitis, unspecified; E78.00 Pure hypercholesterolemia, unspecified; F41.9 Anxiety disorder, unspecified; R09.02 Hypoxemia; R06.00 Dyspnea, unspecified; Z66 Do not resuscitate; F43.10 Post-traumatic stress disorder, unspecified; N40.1 Benign prostatic hyperplasia with lower urinary tract symptoms; Z11.52 Encounter for screening for COVID-19; Z79.82 Long term (current) use of aspirin; Z79.899 Other long term (current) drug therapy; Z87.891 Personal history of nicotine dependence
CPT/HCPCS: 71046; 71275; 78452; 80048; 80053; 80061; 83735; 83880; 84145; 84484; 85025; 85610; 85730; 87631; 87633; 93005; 93017; 93306; 94640; 94660; 94668; 94762; 97161; 97166; 99252; 99285; A9500; J7030; Q9957; Q9967; A4216; C8929; G0463; J1940; J2785

== ENCOUNTER → 2024-05-09 | Outpatient (CLI) | payer MEDICARE, OTHER, SELFPAY ==
[2024-05-09 13:21] LABS: PSA,Total- Diagnostic 3.92 ng/mL (0.0-4.0)
== END | disposition home or self-care (01) ==
LOC: LAB 11:22
PROVIDERS: PCP Student in an Organized Health Care Education/Training Program; Referring Provider Urology; Visit Provider Urology
DX: N40.1 Benign prostatic hyperplasia with lower urinary tract symptoms (principal)
CPT/HCPCS: 36415; 84153

== ENCOUNTER → 2024-06-07 | Outpatient (CLI) | payer OTHER, SELFPAY ==
--- NOTE | 2024-06-07 08:06 | PR.HP_ITS ---
History of Present Illness General Arrival date:: 06/07/24 Arrival time:: 08:07 Date of Referral:: 05/26/24 Date of Evaluation: 06/07/24 Referring Physician: SAUL Primary Diagnosis: Dyspnea History of Present Pulmonary Event [facility] Breathless Scale: When is the patient short of breath? Y/N Grade: Description of Breathlessness: 0 I only get breathless with strenuous exercise. 1 I get short of breath when hurrying on level ground or walking up a slight hill. 2 On level ground, I walk slower than people of the same age because of breathless, or have to stop for breath when walking at my own pace. 3 I stop for breath after walking 100 yards or after a few minutes on level ground. 4 I am too breathless to leave the house or I am breathless when dressing. Respiratory Problems: Yes Retain Secretions, Fatigue, Wheezing, Able to Speak in Full Sentences, Ankle Swelling, Anxiety, Dyspnea at Rest, Dyspnea with Activity and Cough with Secretions; No Limited Range of Motion, Chest Pain, Dizziness, Hoarseness, Panic or Dyspnea Lying Down Flat Medications Home Medications losartan 100 mg tablet 50 mg PO DAILY bp med 07/14/17 aspirin 81 mg tablet,delayed release 81 mg PO DAILY #90 tabs 12/22/18 potassium chloride 20 mEq tablet,extended release 20 meq PO BID #180 tabs 02/28/20 mptmmtsolgwo-dhmaytrl-dyyzcy tablet 1 tab PO DAILY 10/23/20 zinc 50 mg tablet 50 mg PO DAILY 10/23/20 amlodipine 5 mg tablet 5 mg PO DAILY 11/27/20 atorvastatin 40 mg tablet 40 mg PO QHS 11/27/20 furosemide 80 mg tablet 80 mg PO DAILY 11/27/20 sertraline 100 mg tablet 150 mg PO DAILY 11/27/20 tamsulosin 0.4 mg capsule 0.8 mg PO QHS urination 11/27/20 cholecalciferol (vitamin D3) 125 mcg (5,000 unit) capsule 125 mcg PO DAILY 12/02/20 atenolol 50 mg tablet 50 mg PO QDAY #1 TAB 12/01/21 sertraline 50 mg tablet (Zoloft) 50 mg PO QHS 11/03/22 Allergies Allergies lisinopril Adverse Reaction (Verified 03/28/24 09:48) HEARTBURN Secretions Thick:: Yes Amount/Day:: 1 TBSP Cough:: Yes Sleep Disorder Evaluation Hx of Sleep Apnea: Yes Do you snore loudly (louder than talking or can be heard through closed doors)?: Yes Do you often feel tired/ fatigued/ sleepy during daytime?: No Has anyone observed you stop breathing during sleep?: No History of Hypertension (for STOP score): Yes STOP Results: Positive Medical Utilization Medical Devices Do you use a peak flow meter at home?: No Do you use a spacer device with your inhalers?: No Medical Utilization Number of hospital visits in the last year?: 1 Number of emergency room visits in the last year?: 1 Do you see your physician on a regular schedule?: Yes How often?: every 6 months Advanced Directives Advanced Directives Power of [employer]: Yes Living Will: Yes Advance Directives Information Provided: Yes Advance Directives on File: No DNR Order?:: No Past Medical History Covid-19 Screening Physicial Symptoms Other Clinical Concerns Exposure Risk Pertinent Comorbidities 65 years or older:: Yes Has a chronic lung disease or moderate to severe asthma:: Yes Severely obese (Body Mass Index of 40 or higher):: Yes Medical History Past Medical History (Updated 12/03/23 @ 00:11 by Background Daemon) CKD (chronic kidney disease), stage III N18.30 YOVANI on CPAP G47.33 Wears glasses Z97.3 READING ONLY Fatty liver K76.0 Restrictive lung disease J98.4 INHALERS Shortness of breath R06.02 History of posttraumatic stress disorder (PTSD) Z86.59 ON MED Wears hearing aid Z97.4 Wears dentures Z97.2 UPPER Cancer C80.1 SKIN Arthritis M19.90 History of renal disease Z87.448 STAGE 3 GROWTH ON RIGHT KIDNEY Easy bruising R23.8 High cholesterol E78.00 ON MED Back pain M54.9 SPINAL STENOSIS/BACK INJECTIONS WITH DR DE LA O/HAD ABLATION/HAD LAMINECTOMY Former smoker Z87.891 Chronic cough R05 Shortness of breath on exertion R06.02 WITH 2 FLGIHTS OF STAIRS History of pain when walking Z87.898 RIGHT KNEE/LEG History of edema Z87.898 LOWER LEGS/COMPRESSION HOSE History of echocardiogram Z92.2021 History of stress test Z92.89 2019 Cardiology follow-up encounter Z09 FOLLOWS WITH [facility]/LAST VISIT 11/2021 Atherosclerotic heart disease of [place] coronary artery without angina pectoris I25.10 Essential hypertension I10 CONTROLLED WITH MEDS Diverticulosis K57.90 BPH (benign prostatic hyperplasia) N40.0 Thoracic aortic aneurysm without rupture I71.2 Hyperlipidemia E78.5 Surgical History Surgical History History of arthroscopy of left knee History of cardiac catheterization History of foot surgery History of left heart catheterization (LHC) (~01/10/19) History of tonsillectomy and adenoidectomy Hx of appendectomy Hx of decompressive lumbar laminectomy Status post right knee replacement Significant Family History Family History Father CAD (coronary artery disease) Mother Congestive heart failure Brother CAD (coronary artery disease) Hypertension Sister CAD (coronary artery disease) Hypertension Social History Smoking History Smoking Status: Former smoker Years Smokin Packs Smoked per Day: 1 (stopped 22 years ago) Alcohol Use Alcohol Usage: No Substance Abuse Hx Substance Use: No Occupation Occupation (List type of work in comments):: Retired Hobbies, Recreation, Social Activities Hobbies: None Functioning ADL/IADL Current Ability Current Ability: Dependent: Self-Care (e.g.,grooming, dressing, & bathing), Dependent: Ambulation, Dependent: Transfer and Dependent: Household tasks (e.g., light meal prep, laundry, shopping) Pt Functioning Prior to Problem Prior Functioning: Self-Care (e.g.,grooming, dressing, & bathing): Dependent, Ambulation: Dependent, Transfer: Dependent and Household tasks (e.g., light meal prep, laundry, shopping): Dependent Social Environment Status Marital Status: Current Living Arrangements Living Environment:: Spouse Children How many children do you have?: 3 Do any of your children live nearby?: Yes Safety Do you feel safe in your surroundings?: Yes Assistance Do you need any assistance at home?: no Review of Systems Review of Systems Review of Systems Respiratory: Reports Cough, SOB upon Exertion, Sputum production, Wheezing, Appetite, Normal, Fatigue and Sleep, Normal; Denies Hemoptysis, Pleuritic Pain, SOB at Rest, Dizziness/Lightheadedness, PVD or Sexual changes Pain Is Patient Pain Free?: No Pain Location: back and lower extremity Pain Level: 04/01 Risk Factor Assessment Chief Complaint Chief Complaint: dyspnea Vital Signs Pulse Rate: 47 Pulse Ox: 91 Blood Pressure: 118/70 Obesity Height: 6 ft Weight:: 308 lb Weight in Pounds: 308.0 lbs Body Mass Index (BMI): 41.8 Nutritional Referral for Obesity: No (declines) Physical Activity Physical Inactivity: Reg Exercise 30 min/day Risk Stratification Risk Guidelines: Moderate Risk: Risk Factor for Smoking, Risk Factor for Diabetes and Risk Factor for Sedentary Lifestyle and Highest Risk: Risk Factor for Dyslipidemia, Risk Factor for Obesity, Risk Factor for Hypertension and Risk Factor for Depression For Smoking Smoking Risk Guidelines For Dyslipidemia Dyslipidemia Risk Guidelines For Diabetes Mellitus Diabetes Risk Guidelines For Obesity/Overweight Obesity/Overweight Risk Guidelines For Hypertension Hypertension Risk Guidelines For Sedentary Lifestyle Sedentary Lifestyle Risk Guidelines For Depression Depression Risk Guidelines Motivation Motivation to Participate On a scale of 1 to 10, how prepared are you to commit to attending program?: 9 What do you see as barriers to successfully being able to complete the program?: nothing What do you see as the benefits of succesfully completing the program? In other words, what do you hope to get out of participating in the program?: weight loss, improve breathing Are there issues you are dealing with that will interfere with completing the program?: no Do you have a spouse or signficant other, family or friends who will help support you to complete the program?: yes
--- NOTE | 2024-06-07 08:12 | PR.ITP_ITS ---
General Information2 General Information Admitting Diagnosis: dyspnea Personal Learning Style/Barriers Personal Learning Style:: Audio/Visual Barriers to Learning: None Stage of change r/t lifestyle modifications: Contemplation Education/Goals OR Patient Goals: Increase muscle strength: Initial Assessment, Experience less dyspnea: Initial Assessment, Improve energy level: Initial Assessment, Participate in home exercise: Initial Assessment, Improve the ability to cope with ADLs: Initial Assessment and Improve my quality of life: Initial Assessment Exercise - Initial Assessment Visit Date of Eval: 06/07/24 (initial eval ) Problem/Goals Problems: Deconditioning and No regular exercise Goals:: Aerobic exercise 30-60 mins x 12 weeks [36 sessions] Physician Prescribed Exercise Modalities: Treadmill, Rower, [employer] AD-7, [employer] Stepper, Elephant[employer] Pro- II Ergometer and [employer] Lateral Corporate Coordinator Frequency (days/week): 3 Duration (Minutes):: 30-45 Intensity: 60-80% of age predicted maximum heart rate reserve Current METSs:: 2 Target HR:: 107 (86-107) Resting Blood Pressure: 118/70 EKG Type: SB with 1st degree AV block Plan Plan and Plan to Review:: Benefits of exercise, Core components of exercise, How to measure dyspnea level, How to monitor dyspnea level, Exercise intensity, Exercise safety guideline, Home exercise guidelines and Aaron: 3-4/11-13 Nutrition/Wt Mgmt - Initial Visit Date of Eval: 06/07/24 (initial eval ) Problems/Goals Problems: Overweight Goals: Wt Loss 1-2 lbs per week Weight Management Admit Height:: 6 ft Admit Weight:: 308 lb Admit BMI:: 41.8 Intervention Referral to dietitian:: No (declines) Will attend diet classes:: Yes Intervention/Plan: Instruct on ideal BMI & set weight loss goal w/patient, Assist pt to ID & incorporate diet changes for weight loss by S9, Refer to Structured Weight Loss program as appropriate, Encourage goal of using 250- 300dcal per session for weight loss and Other additional plan/interventions Plan Nutrition Plan: Yes: Review BMI or WC & identify target wt & strategies for wt control, Yes: Nutrition education class:, Yes: Medication education class [Prednisone]:, Yes: Weight control education class:, Yes: Education re: Need for ongoing weight monitoring, Yes: Food diary: and Yes: Physical activity log: Nutrition/Wt Mgmt - 30-Day Weight Management Height: 6 ft Weight:: 308 lb BMI: 41.8 Nutrition/Wt Mgmt - 60-Day Weight Management Height: 6 ft Weight:: 308 lb BMI: 41.8 Nutrition/Wt Mgmt - 90-Day Weight Management Height: 6 ft Weight:: 308 lb BMI: 41.8 Nutrition/Wt Mgmt - Final Weight Management Height: 6 ft Weight:: 308 lb BMI: 41.8 Psychosocial - Initial Assess Visit Date of Eval: 06/07/24 (initial eval ) Problems/Goals History of Emotional Disorders: Depression (pt denies being depressed at this time) Psychosocial Test Tool Used:: Pulmonary QOL and PHQ-9 Questionnaire Referred to MD for counseling:: No Referral to Behavioral Health PS - Interventions: Yes: Attend Stress Management Classes Intervention/Plan: See List Interventions/Plan:: Assess stressors,coping strategies & signs of derpression on admission, Instruct/assist pt to develop coping & personal stress Mgt strategies, Refer to Behavioral Health if appropriate, Refer to Physician if appropriate, Instruct patient to recognize signs & symptoms of depression and Instruct patient to recog Psychosocial - 30-Day Problems/Goals History of Emotional Disorders: Depression (pt denies being depressed at this time) Psychosocial Test Tool Used:: Pulmonary QOL and PHQ-9 Questionnaire Referred to MD for counseling:: No Referral to Behavioral Health PS - Interventions: Yes: Attend Stress Management Classes Plan Interventions/Plan:: Assess stressors,coping strategies & signs of derpression on admission, Instruct/assist pt to develop coping & personal stress Mgt strategies, Refer to Behavioral Health if appropriate, Refer to Physician if appropriate, Instruct patient to recognize signs & symptoms of depression and Instruct patient to recog Psychosocial - 60-Day Problems/Goals History of Emotional Disorders: Depression (pt denies being depressed at this time) Psychosocial Test Tool Used:: Pulmonary QOL and PHQ-9 Questionnaire Referred to MD for counseling:: No Referral to Behavioral Health PS - Interventions: Yes: Attend Stress Management Classes Plan Interventions/Plan:: Assess stressors,coping strategies & signs of derpression on admission, Instruct/assist pt to develop coping & personal stress Mgt strategies, Refer to Behavioral Health if appropriate, Refer to Physician if appropriate, Instruct patient to recognize signs & symptoms of depression and Instruct patient to recog Psychosocial - 90-Day Problems/Goals History of Emotional Disorders: Depression (pt denies being depressed at this time) Psychosocial Test Tool Used:: Pulmonary QOL and PHQ-9 Questionnaire Referred to MD for counseling:: No Referral to Behavioral Health PS - Interventions: Yes: Attend Stress Management Classes Plan Interventions/Plan:: Assess stressors,coping strategies & signs of derpression on admission, Instruct/assist pt to develop coping & personal stress Mgt strategies, Refer to Behavioral Health if appropriate, Refer to Physician if appropriate, Instruct patient to recognize signs & symptoms of depression and Instruct patient to recog Psychosocial - Final Assess Problems/Goals History of Emotional Disorders: Depression (pt denies being depressed at this time) Psychosocial Test Tool Used:: Pulmonary QOL and PHQ-9 Questionnaire Referred to MD for counseling:: No Referral to Behavioral Health PS - Interventions: Yes: Attend Stress Management Classes Plan Interventions/Plan:: Assess stressors,coping strategies & signs of derpression on admission, Instruct/assist pt to develop coping & personal stress Mgt strategies, Refer to Behavioral Health if appropriate, Refer to Physician if appropriate, Instruct patient to recognize signs & symptoms of depression and Instruct patient to recog Oxygen & Oxygen Titration Init Visit Date of Eval: 06/07/24 (initial eval ) Initial Assessment Oxygen on Admission: Oxygen w/activity Patient Reports:: Prod cough daily <1 Tbsp Goal Oxygen & Oxygen Tritration Goals: Effective hypoxemia control and Uses O2 as R x'd/safely Plans Plan: Monitor SpO2 rest & with exercise, Recommend appropriate FiO2 to Pt/MD, Train appropriate O2 use at rest, Train appropriate O2 use with exercise and Train O2 safety & systems Reviewed prescribed medications:: Purpose, Schedule, Side effects and Importance of compliance Bronchial Hygiene Plan: Controlled cough, CPT, Vibratory PEP device, VEST, Role of exercise in secretion clearance, NS Nasal spray, Hydration, Hand hygiene, Evaluate sputum, When to call MD, Signs/symptoms to report:, Influenza/Pneumovax vaccines and Cleaning of respiratory equipment Core Components - Initial Visit Date of Eval: 06/07/24 (initial eval ) Hypertension Hypertension Diagnosis:: Hypertension ICD-10 I10 [place] [employer] Hypertension Guidelines Blood Pressure: 118/70 Low Sodium diet: Yes Outcomes/Goals: Able to verbalize/achieve optimal blood pressure <130/80, In corporates diet changes & exercise for blood pressure control by DC and Other additional outcomes/goals Tobacco - Initial Assessment Tobacco Program Goals Learning Barriers: Ready to Learn Do you have family support?: Yes Tobacco Use: Non-smoker Gave Education Materials For:: Tobacco Triggers, Pulmonary Disease, Risk Factors, Breathing Techniques, Medical Compliance, Pulmonary A&P, Exacerbation Signs & Symptoms and Stress & Relaxation Exacerbation Mgmt & Airway Clearance Hypoxemia Goals:: Hypoxemia managed and Port system Goals: Pt demonstrates effective cough, effective secretion clearance. and Pt describes signs and symptoms of infection. Patient Reports:: Prod cough daily <1 Tbsp Plan: Monitor SpO2 rest & with exercise, Recommend appropriate FiO2 to Pt/MD, Train appropriate O2 use at rest, Train appropriate O2 use with exercise and Train O2 safety & systems Bronchial Hygiene Plan: Controlled cough, CPT, Vibratory PEP device, VEST, Role of exercise in secretion clearance, NS Nasal spray, Hydration, Hand hygiene, Evaluate sputum, When to call MD, Signs/symptoms to report:, Influenza/Pneumovax vaccines and Cleaning of respiratory equipment Medication Interventions/plans: Instruct on medication effects & side effects, Review medication list w/patient every two weeks and Instruct importance of taking meds as ordered & assist problem solving Medication Goals: Adherence to prescribed medications and Correct technique /timing & care of MDI, DPI, nebulizer, and spacer. Does pt report taking home meds as prescribed?: Yes Reviewed prescribed medications:: Purpose, Schedule, Side effects and Importance of compliance Diabetes Diabetes:: No Referral to dietitian:: No (declines) Will attend diet classes:: Yes Core Components - 30 DAYS Hypertension Hypertension Diagnosis:: Hypertension ICD-10 I10 [place] [employer] Hypertension Guidelines Peak Exercise Blood Pressure:: 118/70 Outcomes/Goals: Able to verbalize/achieve optimal blood pressure <130/80, Incorporates diet changes & exercise for blood pressure control by DC and Other additional outcomes/goals Tobacco - 30-Day Tobacco Program Goals Do you have family support?: Yes Tobacco Use: Non-smoker Gave Education Materials For:: Tobacco Triggers, Pulmonary Disease, Risk Factors, Breathing Techniques, Medical Compliance, Pulmonary A&P, Exacerbation Signs & Symptoms and Stress & Relaxation Diabetes Diabetes:: No Core Components - 60 DAYS Hypertension Hypertension Diagnosis:: Hypertension ICD-10 I10 [place] [employer] Hypertension Guidelines Peak Exercise Blood Pressure:: 118/70 Outcomes/Goals: Able to verbalize/achieve optimal blood pressure <130/80, Incorporates diet changes & exercise for blood pressure control by DC and Other additional outcomes/goals Tobacco - 60-Day Tobacco Program Goals Do you have family support?: Yes Tobacco Use: Non-smoker Gave Education Materials For:: Tobacco Triggers, Pulmonary Disease, Risk Factors, Breathing Techniques, Medical Compliance, Pulmonary A&P, Exacerbation Signs & Symptoms and Stress & Relaxation Diabetes Diabetes:: No Core Components - 90 DAYS Hypertension Hypertension Diagnosis:: Hypertension ICD-10 I10 [employer] Hypertension Guidelines Peak Exercise Blood Pressure:: 118/70 Outcomes/Goals: Able to verbalize/achieve optimal blood pressure <130/80, Incorporates diet changes & exercise for blood pressure control by DC and Other additional outcomes/goals Tobacco - 90-Day Tobacco Program Goals Do you have family support?: Yes Tobacco Use: Non-smoker Gave Education Materials For:: Tobacco Triggers, Pulmonary Disease, Risk Factors, Breathing Techniques, Medical Compliance, Pulmonary A&P, Exacerbation Signs & Symptoms and Stress & Relaxation Diabetes Diabetes:: No Core Components - Final Hypertension Hypertension Diagnosis:: Hypertension ICD-10 I10 [place] [employer] Hypertension Guidelines Peak Exercise Blood Pressure:: 118/70 Outcomes/Goals: Able to verbalize/achieve optimal blood pressure <130/80, Inco rporates diet changes & exercise for blood pressure control by DC and Other additional outcomes/goals Tobacco - Final Tobacco Program Goals Do you have family support?: Yes Tobacco Use: Non-smoker Diabetes Diabetes:: No Patient Health Questionnaire PHQ-9 Screening Initial Assessment: 1. Little interest or pleasure in doing things: Several days 2. Feeling down, depressed, or hopeless: Not at all 3. Trouble falling or staying asleep, or sleeping too much: Not at all 4. Feeling tired or having little energy: Several days 5. Poor appetite or overeating: Several days 6. Feeling bad about yourself -- or that you are a failure or have let yourself or your family down: Not at all 7. Trouble concentrating on things, such as reading the newspaper or watching television: Not at all 8. Moving or speaking so slowly that other people could have noticed. Or the opposite - being so fidgety or restless that you have been moving around a lot more than usual: Not at all 9. Thoughts that you would be better off , or of hurting yourself in some way: Not at all How difficult have these problems made it for you to do your work, take care of things at home, or get along with other people?: Not difficult at all Total Score: 3 Knowledge Questionaire (BCKQ) Information Information: [place] COPD Knowledge Questionnaire (BCKQ) This questionnaire is designed to find out what you know about your lung problem. It should be completed without help form anyone else. This usually takes between 10 and 20 minutes. Your answers will help us to find out what information you need to help you to understand and manage your lung condition. [place] the [place] which you think is the correct answer. Questions 1. In COPD: b. COPD can only be confirmed by breathing tests: True c. In COPD ther is usually gradual worsening over time: True d. In COPD oxygen levels in the blood are always low: Don't know e. COPD is usually in people less than 40 years old: False 2. COPD: [place] than 80% of COPD cases are caused by cigarette smoking: False b. COPD can be caused by occupational dust exposure: True c. Longstanding asthma can develop into COPD: True d. COPD is commonly an inherited disease: False e. Women are less vunerable to the effects of cigarette than men: False 3. The following symptoms are Common in COPD: a. Swelling of the ankles is common in COPD:: True b. Fatigue [tiredness] is common in COPD: True c. Wheezing is common in COPD: True d. Crushing chest pain is common in COPD: False e. Rapid weight loss is common in COPD: False 4. Breathlessness in COPD: a. Severe breathlessness prevents travel by air: Don't know b. Breathlessness can be worsened by eating large meals: True c. Breathlessness means that your oxygen levels are low: True d. Breathlessness is a normal response to exercise: True e. Breathlessness is primarily caused by a narrowing of the bronchial tubes: False 5. Phlegm (sputum): a. Coughing phlegm is a common symptom in COPD: True b. Clearing phlegm is more difficult if you get dehydrated: Don't know c. Bronchodilator inhalers can help clear phlegm: True d. Phlegm causes harm if swallowed: Don't know e. Clearing phlegm can be assisted by breathing exercises: True 6. Chest infections / exacerbations: a. Chest infections often cause coughing of blood: Don't know b. Chest infection phlegm usually becomes coloured (ylw/grn): True cExerbations (episodes of worsening) can occur in the absence of chest infection: Don't know d. Chest infections are always accompanied by a high temperature: Don't know e. Steroid tablets should be taken whenever there is an exacerbation: Don't know 7. Excercise in COPD: aWalking excercises better than breathing to improve fitness: True b. Exercise should be avoided as it strains the lungs: False c. Exercise can help maintain your bone density: True d. Exercise helps relieve depression: True e. Exercise should be stopped if it makes you breathless: False 8. Smoking: a. Stopping smoking will reduce the risk of heart disease: True b. Stopping smoking will slow down further lung damage: True c. Stopping smoking is pointless as the damage is done: False d.Stopping smoking usually results in improved lung function: True eNicotine replacement therapy only available on prescription: Don't know 9. Vaccination: a. A flu jab is recommended every year: Don't know b. You can get flu from having a flu jab: Don't know c. You can only have a flu jab if you are 65 or over: False d. A pneumonia jab protects against all forms of pneumonia: Don't know e.You can have a pneumonia jab and a flu job on the same day: Don't know 10. Inhaled bronchodilators: a. Bronchodilators act quickly (within 10 minutes): Don't know b. Both short & long acting bronchodilators can be taken on the same day: Don't know c. Spacers (volumatic,nebuhaler,serochamber)should be dried w/atowel after washing: Don't know d. A spacer device increases the medication to the lungs: Don't know e. Tremor may be a side effect of bronchodilators: True 11. Antibiotic treatment in COPD: a. To be effective, the course should last at least 10 days: True b. Excessive use of antibiotics can cause resistant bacteria (germs): False c. Antibiotics will clear all chest infections: Don't know d. Antibiotic treatment is necessary for an exacerbation (worsening) however mild: True e. Seek advice if antibiotics cause severe diarrhoea: False 12. Steroid tablets given for COPD (eg Prednisolone): a. Steroid tablets help strengthen muscles: Don't know b. Steroid tablets should be avoided if there is a chest infection: Don't know c. The risk of long-term side effects due to steroids is less w/short courses then w/continous treatment: Don't know dIndigestion is common side effect from using steroid tablet: Don't know e. Steroid tablets can increase your appetite: Don't know 13. Inhaled steroids (brown, red or orange): a. Inhaled steroids should be stopped if you are given steroid tablets: Don't know bSteroid inhalers can be used for rapid relief breathlessnes: Don't know c. Spacer devices reduce the risk of getting thrush in the mouth: Don't know d.Steroid inhaler should be taken before your bronchodilator: Don't know e. Inhaled steroids improve lung function in COPD: Don't know COPD Assessment Test [CAT] Questions Never cough = 0, Cough all the time = 5: 3 No phlegm = 0, Chest full of phlegm = 5: 3 No chest tightness = 0, Chest very tight = 5: 0 No breathless w/exertion = 0, Very breathless w/exertion = 5: 5 No limitations w/activity = 0, Very limited w/activity = 5: 4 Confident leaving home = 0, Not at all confident = 5: 3 Sleep soundly = 0, Don't sleep soundly = 5: 0 Lots of energy = 0, No energy at all = 5: 4 Total CAT score:: 22 Nutrition Survey Nutrition Survey Instructions Scoring Instructions Nutrition Survey Initial: Have you lost >10 lbs over the past 2 months without trying?: No Are you following a special diet at home for diabetes, low fat, or low salt?: No Are you interested in meeting with a dietitian for help understanding your diet?: No Do you eat less than 3 meals a day?: No Do you eat fatty meats (modi, sausage, ribs, etc), fried foods, desserts, large amounts of salad dressings, margarine, butter, or cheese most days?: Yes Do you have food allergies? [Enter types in comment field]: No Do you eat in restaurants more than 3 times a week?: No Do you season food with salt, seasoning salt, or garlic salt?: No Do you used canned, boxed, frozen meals, or soups, seasoning packets?: No Total Score:: 1
[2024-06-07 08:39] VITALS: PULSE 47; O2SAT 91
[2024-06-07 08:41] VITALS: BP 118/70
[2024-06-07 08:48] VITALS: BP 118/70
[2024-06-07 09:19] VITALS: BMI 41.8
[2024-06-07 09:28] VITALS: BP 118/70; BMI 41.8
== END | disposition home or self-care (01) ==
PROVIDERS: PCP Student in an Organized Health Care Education/Training Program
DX: R06.00 Dyspnea, unspecified (principal)

== ENCOUNTER 2024-06-21 13:00 | Outpatient (RCR) | payer OTHER, SELFPAY ==
[2024-06-07 09:28] VITALS: BMI 41.8
== END 2024-06-22 23:59 ==
LOC: PR 13:00
PROVIDERS: PCP Student in an Organized Health Care Education/Training Program
DX: R06.00 Dyspnea, unspecified (principal)
CPT/HCPCS: 97150; G0239

== ENCOUNTER 2024-07-19 13:00 | Outpatient (RCR) | payer OTHER, SELFPAY ==
[2024-06-07 09:28] VITALS: BMI 41.8
--- NOTE | 2024-07-07 11:02 | PCM.PR.TP ---
Exercise - Initial Assessment Visit Session Number:: 9 Physician Prescribed Exercise Modalities: Treadmill, SciFit Stepper and SciFit Lateral [place] Current METSs:: 2 Target HR:: 107 (86-107) Target RPE 12-16:: 12 Current RPD:: 2 Resting Blood Pressure: 120/60 Maximum Exercise Blood Pressure: 138/62 Minimum SpO2 with exercise: 93 EKG Type: SB to NSR w/ sinus arrythmia Nutrition/Wt Mgmt - Initial Visit Session Number:: 9 Weight Management Admit Height:: 6 ft Admit Weight:: 308 lb Admit BMI:: 41.8 Nutrition/Wt Mgmt - 30-Day Visit Date of Eval: 07/07/24 Session Number:: 9 Weight Management Height: 6 ft Weight:: 308 lb BMI: 41.8 Weight Goals Progress:: Progressing (Pt has attended nutrition class. ) Nutrition/Wt Mgmt - 60-Day Visit Session Number:: 9 Weight Management Height: 6 ft Weight:: 308 lb BMI: 41.8 Nutrition/Wt Mgmt - 90-Day Visit Session Number:: 9 Weight Management Height: 6 ft Weight:: 308 lb BMI: 41.8 Nutrition/Wt Mgmt - Final Visit Session Number:: 9 Weight Management Height: 6 ft Weight:: 308 lb BMI: 41.8 Psychosocial - Initial Assess Visit Session Number:: 9 Problems/Goals History of Emotional Disorders: Depression (pt denies depression at this time) Psychosocial Goals: 1. Patient is free from overwhelming symtoms of depression (or anxiety, 2. Identifies personal stressors & states the strategies for managing, 3. Identifies activities to decrease isolation and/or symptoms of, 4. Improved psychosocial coping skills., 5. Verbalizes coping strategies., 6. Adequate treatment of depression. and 7. Improved Q.O.L. Psychosocial Test Tool Used:: Pulmonary QOL and PHQ-9 Questionnaire Referred to MD for counseling:: No Referral to Behavioral Health PS - Interventions: Yes: Attend Stress Management Classes Intervention/Plan: See List Interventions/Plan:: Assess stressors,coping strategies & signs of derpression on admission, Instruct/assist pt to develop coping & personal stress Mgt strategies, Refer to Behavioral Health if appropriate, Refer to Physician if appropriate, Instruct patient to recognize signs & symptoms of depression, Instruct patient to recog and Other additional plan/intervention Psychosocial - 30-Day Visit Date of Eval: 07/07/24 Session Number:: 9 Problems/Goals History of Emotional Disorders: Depression (pt denies depression at this time) Psychosocial Goals: 1. Patient is free from overwhelming symtoms of depression (or anxiety, 2. Identifies personal stressors & states the strategies for managing, 3. Identifies activities to decrease isolation and/or symptoms of, 4. Improved psychosocial coping skills., 5. Verbalizes coping strategies., 6. Adequate treatment of depression. and 7. Improved Q.O.L. Psychosocial Test Tool Used:: Pulmonary QOL and PHQ-9 Questionnaire Referred to MD for counseling:: No Referral to Behavioral Health PS - Interventions: Yes: Attend Stress Management Classes Plan Interventions/Plan:: Assess stressors,coping strategies & signs of derpression on admission, Instruct/assist pt to develop coping & personal stress Mgt strategies, Refer to Behavioral Health if appropriate, Refer to Physician if appropriate, Instruct patient to recognize signs & symptoms of depression, Instruct patient to recog and Other additional plan/intervention Psychosocial - 60-Day Visit Session Number:: 9 Problems/Goals History of Emotional Disorders: Depression (pt denies depression at this time) Psychosocial Goals: 1. Patient is free from overwhelming symtoms of depression (or anxiety, 2. Identifies personal stressors & states the strategies for managing, 3. Identifies activities to decrease isolation and/or symptoms of, 4. Improved psychosocial coping skills., 5. Verbalizes coping strategies., 6. Adequate treatment of depression. and 7. Improved Q.O.L. Psychosocial Test Tool Used:: Pulmonary QOL and PHQ-9 Questionnaire Referred to MD for counseling:: No Referral to Behavioral Health PS - Interventions: Yes: Attend Stress Management Classes Plan Interventions/Plan:: Assess stressors,coping strategies & signs of derpression on admission, Instruct/assist pt to develop coping & personal stress Mgt strategies, Refer to Behavioral Health if appropriate, Refer to Physician if appropriate, Instruct patient to recognize signs & symptoms of depression, Instruct patient to recog and Other additional plan/intervention Psychosocial - 90-Day Visit Session Number:: 9 Problems/Goals History of Emotional Disorders: Depression (pt denies depression at this time) Psychosocial Goals: 1. Patient is free from overwhelming symtoms of depression (or anxiety, 2. Identifies personal stressors & states the strategies for managing, 3. Identifies activities to decrease isolation and/or symptoms of, 4. Improved psychosocial coping skills., 5. Verbalizes coping strategies., 6. Adequate treatment of depression. and 7. Improved Q.O.L. Psychosocial Test Tool Used:: Pulmonary QOL and PHQ-9 Questionnaire Referred to MD for counseling:: No Referral to Behavioral Health PS - Interventions: Yes: Attend Stress Management Classes Plan Interventions/Plan:: Assess stressors,coping strategies & signs of derpression on admission, Instruct/assist pt to develop coping & personal stress Mgt strategies, Refer to Behavioral Health if appropriate, Refer to Physician if appropriate, Instruct patient to recognize signs & symptoms of depression, Instruct patient to recog and Other additional plan/intervention Psychosocial - Final Assess Visit Session Number:: 9 Problems/Goals History of Emotional Disorders: Depression (pt denies depression at this time) Psychosocial Goals: 1. Patient is free from overwhelming symtoms of depression (or anxiety, 2. Identifies personal stressors & states the strategies for managing, 3. Identifies activities to decrease isolation and/or symptoms of, 4. Improved psychosocial coping skills., 5. Verbalizes coping strategies., 6. Adequate treatment of depression. and 7. Improved Q.O.L. Psychosocial Test Tool Used:: Pulmonary QOL and PHQ-9 Questionnaire Referred to MD for counseling:: No Referral to Behavioral Health PS - Interventions: Yes: Attend Stress Management Classes Plan Interventions/Plan:: Assess stressors,coping strategies & signs of derpression on admission, Instruct/assist pt to develop coping & personal stress Mgt strategies, Refer to Behavioral Health if appropriate, Refer to Physician if appropriate, Instruct patient to recognize signs & symptoms of depression, Instruct patient to recog and Other additional plan/intervention Oxygen & Oxygen Titration Init Visit Session Number:: 9 Initial Assessment SpO2:: 93 Oxygen & Oxygen Titration 30D Visit Date of Eval: 07/07/24 Session Number:: 9 Reassessment Reassessment- 30 Days: Demonstrate knowledge of O2 Rx at rest & w/exercise, Using O2 as Rx'd, Has home O2 as Rx'd and Uses port O2 as Rx'd SpO2:: 93 Oxygen & Oxygen Titration 60D Visit Date of Eval: 07/07/24 Session Number:: 9 Reassessment SpO2:: 93 Oxygen & Oxygen Titration 90D Visit Date of Eval: 07/07/24 Session Number:: 9 Reassessment SpO2:: 93 Oxygen & Oxygen Titration JOEL Visit Date of Eval: 07/07/24 Session Number:: 9 Reassessment SpO2:: 93 Core Components - Initial Visit Session Number:: 9 Hypertension Hypertension Diagnosis:: Hypertension ICD-10 I10 BP: 120/60 [employer] Hypertension Guidelines Blood Pressure: 138/62 Outcomes/Goals: Able to verbalize/achieve optimal blood pressure <130/80 and Incorporates diet changes & exercise for blood pressure control by DC Tobacco - Initial Assessment Tobacco Program Goals Tobacco Use: Non-smoker Diabetes Diabetes:: No Core Components - 30 DAYS Visit Date of Eval: 07/07/24 Session Number:: 9 Hypertension Hypertension Diagnosis:: Hypertension ICD-10 I10 Resting Blood Pressure:: 120/60 [employer] Hypertension Guidelines Peak Exercise Blood Pressure:: 138/62 Change in medication: No Outcomes/Goals: Able to verbalize/achieve optimal blood pressure <130/80 and Incorporates diet changes & exercise for blood pressure control by DC Interventions/plan: Instruct on optimal blood pressure, hypertension & medications, Instruct on effects of sodium, alcohol, stress, exercise &hypertension and Other additional plan/interventions 30 day Reassessments:: Met Reassessment Notes & Comments:: BP's are within AHA normal guidelines Tobacco - 30-Day Tobacco Program Goals Tobacco Use: Non-smoker Exacerbation Mgmt & Airway Clearance Reassessment: Demonstrates knowledge of O2 Rx at rest, Demonstrates knowledge of O2 Rx with exercise, Using O2 as prescribed, Has home O2 as prescribed and Uses port O2 as prescribed Bronchial Hygiene Plan: Yes: Pt demonstrates correctly for effective cough, Yes: Pt demo correct for CPT, Yes: Pt demo correct for device, Yes: Pt demo correct for NS nasal spray, Yes: Pt demo correct for sputum management, Yes: Pt demo correct for improved hydration, Yes: Pt demo correct for hand hygiene, Yes: Pt demo correct for evalute sputum, Yes: Pt demo correct for verbalize when to call MD and Yes: Pt demo correct for cleaning of respiratory equipment Medication Medication list reviewed:: Yes Taking medications 100% of the time:: Met (pt taking meds as prescribed) Medication reassessment: Yes: Pt demonstrates correct technique timing for MDI, Yes: Pt demonstrates correct technique timing for DPI, Yes: Pt demonstrates correct technique timing for NEB and Yes: Pt demonstrates correct technique timing for spacer Diabetes Diabetes:: No Core Components - 60 DAYS Visit Session Number:: 9 Hypertension Hypertension Diagnosis:: Hypertension ICD-10 I10 Resting Blood Pressure:: 120/60 [employer] Hypertension Guidelines Peak Exercise Blood Pressure:: 138/62 Change in medication: No Outcomes/Goals: Able to verbalize/achieve optimal blood pressure <130/80 and Incorporates diet changes & exercise for blood pressure control by DC Interventions/plan: Instruct on optimal blood pressure, hypertension & medications, Instruct on effects of sodium, alcohol, stress, exercise &hypertension and Other additional plan/interventions 60 day Reassessments:: Met Reassessment Notes & Comments:: BP's are within AHA normal guidelines Tobacco - 60-Day Tobacco Program Goals Tobacco Use: Non-smoker Exacerbation Mgmt & Airway Clearance Reassessment: Demonstrates knowledge of O2 Rx at rest, Demonstrates knowledge of O2 Rx with exercise, Using O2 as prescribed, Has home O2 as prescribed and Uses port O2 as prescribed Bronchial Hygiene Plan: Yes: Pt demonstrates correctly for effective cough, Yes: Pt demo correct for CPT, Yes: Pt demo correct for device, Yes: Pt demo correct for NS nasal spray, Yes: Pt demo correct for sputum management, Yes: Pt demo correct for improved hydration, Yes: Pt demo correct for hand hygiene, Yes: Pt demo correct for evalute sputum, Yes: Pt demo correct for verbalize when to call MD and Yes: Pt demo correct for cleaning of respiratory equipment Medication Taking medications 100% of the time:: Met (pt taking meds as prescribed) Medication reassessment: Yes: Pt demonstrates correct technique timing for MDI, Yes: Pt demonstrates correct technique timing for DPI, Yes: Pt demonstrates correct technique timing for NEB and Yes: Pt demonstrates correct technique timing for spacer Diabetes Diabetes:: No Core Components - 90 DAYS Visit Session Number:: 9 Hypertension Hypertension Diagnosis:: Hypertension ICD-10 I10 Resting Blood Pressure:: 120/60 [employer] Hypertension Guidelines Peak Exercise Blood Pressure:: 138/62 Outcomes/Goals: Able to verbalize/achieve optimal blood pressure <130/80 and Incorporates diet changes & exercise for blood pressure control by DC Interventions/plan: Instruct on optimal blood pressure, hypertension & medications, Instruct on effects of sodium, alcohol, stress, exercise &hypertension and Other additional plan/interventions 90 day Reassessments:: Met Reassessment Notes & Comments:: BP's are within AHA normal guidelines Tobacco - 90-Day Tobacco Program Goals Tobacco Use: Non-smoker Exacerbation Mgmt & Airway Clearance Bronchial Hygiene Plan: Yes: Pt demonstrates correctly for effective cough, Yes: Pt demo correct for CPT, Yes: Pt demo correct for device, Yes: Pt demo correct for NS nasal spray, Yes: Pt demo correct for sputum management, Yes: Pt demo correct for improved hydration, Yes: Pt demo correct for hand hygiene, Yes: Pt demo correct for evalute sputum, Yes: Pt demo correct for verbalize when to call MD and Yes: Pt demo correct for cleaning of respiratory equipment Medication Medication reassessment: Yes: Pt demonstrates correct technique timing for MDI, Yes: Pt demonstrates correct technique timing for DPI, Yes: Pt demonstrates correct technique timing for NEB and Yes: Pt demonstrates correct technique timing for spacer Diabetes Diabetes:: No Core Components - Final Visit Session Number:: 9 Hypertension Hypertension Diagnosis:: Hypertension ICD-10 I10 Resting Blood Pressure:: 120/60 [employer] Hypertension Guidelines Peak Exercise Blood Pressure:: 138/62 Outcomes/Goals: Able to verbalize/achieve optimal blood pressure <130/80 and Incorporates diet changes & exercise for blood pressure control by DC Tobacco - Final Tobacco Program Goals Tobacco Use: Non-smoker Exacerbation Mgmt & Airway Clearance Bronchial Hygiene Plan: Yes: Pt demonstrates correctly for effective cough, Yes: Pt demo correct for CPT, Yes: Pt demo correct for device, Yes: Pt demo correct for NS nasal spray, Yes: Pt demo correct for sputum management, Yes: Pt demo correct for improved hydration, Yes: Pt demo correct for hand hygiene, Yes: Pt demo correct for evalute sputum, Yes: Pt demo correct for verbalize when to call MD and Yes: Pt demo correct for cleaning of respiratory equipment Medication Medication reassessment: Yes: Pt demonstrates correct technique timing for MDI, Yes: Pt demonstrates correct technique timing for DPI, Yes: Pt demonstrates correct technique timing for NEB and Yes: Pt demonstrates correct technique timing for spacer Diabetes Diabetes:: No Patient Health Questionnaire PHQ-9 Screening 30-Day Re-eval Assessment: 1. Little interest or pleasure in doing things: Several days 2. Feeling down, depressed, or hopeless: Not at all 3. Trouble falling or staying asleep, or sleeping too much: Not at all 4. Feeling tired or having little energy: Several days 5. Poor appetite or overeating: Several days 6. Feeling bad about yourself -- or that you are a failure or have let yourself or your family down: Not at all 7. Trouble concentrating on things, such as reading the newspaper or watching television: Not at all 8. Moving or speaking so slowly that other people could have noticed. Or the opposite - being so fidgety or restless that you have been moving around a lot more than usual: Not at all 9. Thoughts that you would be better off , or of hurting yourself in some way: Not at all How difficult have these problems made it for you to do your work, take care of things at home, or get along with other people?: Not difficult at all Total Score: 3 Knowledge Questionaire (BCKQ) Information Information: [place] COPD Knowledge Questionnaire (BCKQ) This questionnaire is designed to find out what you know about your lung problem. It should be completed without help form anyone else. This usually takes between 10 and 20 minutes. Your answers will help us to find out what information you need to help you to understand and manage your lung condition. [place] the [id number] which you think is the correct answer. Self-Efficacy 6-Item Scale 30-Day Re-eval Assessment: We would like to know how confident you are in doing certain activities. Please select your confidence level for: Fatigue Select Number: 2 Physical Discomfort or Pain Select Number: 2 Emotional Distress Select Number: 2 Other Symptoms or Health Problems Select Number: 1 Different Tasks and Activities Select Number: 4 Medication Select Number: 5 Total Score:: 2 Nutrition Survey Nutrition Survey Instructions Scoring Instructions
[2024-07-07 11:19] VITALS: BP 120/60; BP 138/62; O2SAT 93; BMI 41.8
== END 2024-07-22 23:59 ==
LOC: PR 13:00
PROVIDERS: PCP Student in an Organized Health Care Education/Training Program
DX: R06.00 Dyspnea, unspecified (principal)
CPT/HCPCS: 97150; G0239

== ENCOUNTER 2024-08-21 13:00 | Outpatient (RCR) | payer OTHER, SELFPAY ==
[2024-07-07 11:19] VITALS: BMI 41.8
[2024-07-23 00:29] VITALS: BP 120/60; BP 138/62; BMI 41.8
--- NOTE | 2024-08-07 07:10 | PR.ITP_ITS ---
Exercise - Initial Assessment Visit Session Number:: 23 Physician Prescribed Exercise Modalities: Treadmill, SciFit Stepper and SciFit Lateral [place] Target HR:: 107 (86-114) Current RPD:: 2 Maximum Exercise HR:: 93 Resting Blood Pressure: 116/70 Maximum Exercise Blood Pressure: 144/76 Minimum SpO2 with exercise: 91 EKG Type: SB with AV block Nutrition/Wt Mgmt - Initial Visit Session Number:: 23 Weight Management Admit Height:: 6 ft Admit Weight:: 308 lb Admit BMI:: 41.8 Nutrition/Wt Mgmt - 30-Day Visit Date of Eval: 08/07/24 Session Number:: 23 Weight Management Height: 6 ft Weight:: 308 lb BMI: 41.8 Nutrition/Wt Mgmt - 60-Day Visit Date of Eval: 08/07/24 Session Number:: 23 Weight Management Height: 6 ft Weight:: 308 lb BMI: 41.8 Weight Goals Progress:: Progressing (Pt has attended nutrition class. Arnel continue to encourages pt to keep a food log and watch sodium intake.) Nutrition/Wt Mgmt - 90-Day Visit Session Number:: 23 Weight Management Height: 6 ft Weight:: 308 lb BMI: 41.8 Weight Goals Progress:: Progressing (Pt has attended nutrition class. Arnel continue to encourages pt to keep a food log and watch sodium intake.) Nutrition/Wt Mgmt - Final Visit Session Number:: 23 Weight Management Height: 6 ft Weight:: 308 lb BMI: 41.8 Psychosocial - Initial Assess Visit Session Number:: 23 Problems/Goals History of Emotional Disorders: Depression (pt feldman a hx of depression which he denies at this time.) Psychosocial Goals: 1. Patient is free from overwhelming symtoms of depression (or anxiety, 2. Identifies personal stressors & states the strategies for managing, 3. Identifies activities to decrease isolation and/or symptoms of, 4. Improved psychosocial coping skills., 5. Verbalizes coping strategies., 6. Adequate treatment of depression. and 7. Improved Q.O.L. Psychosocial Test Tool Used:: Pulmonary QOL and PHQ-9 Questionnaire Referred to MD for counseling:: No Referral to Behavioral Health PS - Interventions: Yes: Attend Stress Management Classes Intervention/Plan: See List Interventions/Plan:: Assess stressors,coping strategies & signs of derpression on admission, Instruct/assist pt to develop coping & personal stress Mgt strategies, Refer to Behavioral Health if appropriate, Refer to Physician if appropriate, Instruct patient to recognize signs & symptoms of depression, Instruct patient to recog and Other additional plan/intervention Psychosocial - 30-Day Visit Date of Eval: 08/07/24 Session Number:: 23 Problems/Goals History of Emotional Disorders: Depression (pt feldman a hx of depression which he denies at this time.) Psychosocial Goals: 1. Patient is free from overwhelming symtoms of depression (or anxiety, 2. Identifies personal stressors & states the strategies for managing, 3. Identifies activities to decrease isolation and/or symptoms of, 4. Improved psychosocial coping skills., 5. Verbalizes coping strategies., 6. Adequate treatment of depression. and 7. Improved Q.O.L. Psychosocial Test Tool Used:: Pulmonary QOL and PHQ-9 Questionnaire Referred to MD for counseling:: No Referral to Behavioral Health PS - Interventions: Yes: Attend Stress Management Classes Plan Interventions/Plan:: Assess stressors,coping strategies & signs of derpression on admission, Instruct/assist pt to develop coping & personal stress Mgt strategies, Refer to Behavioral Health if appropriate, Refer to Physician if appropriate, Instruct patient to recognize signs & symptoms of depression, Instruct patient to recog and Other additional plan/intervention Psychosocial - 60-Day Visit Date of Eval: 08/07/24 Session Number:: 23 Problems/Goals History of Emotional Disorders: Depression (pt feldman a hx of depression which he denies at this time.) Psychosocial Goals: 1. Patient is free from overwhelming symtoms of depression (or anxiety, 2. Identifies personal stressors & states the strategies for managing, 3. Identifies activities to decrease isolation and/or symptoms of, 4. Improved psychosocial coping skills., 5. Verbalizes coping strategies., 6. Adequate treatment of depression. and 7. Improved Q.O.L. Psychosocial Test Tool Used:: Pulmonary QOL and PHQ-9 Questionnaire Referred to MD for counseling:: No Referral to Behavioral Health PS - Interventions: Yes: Attend Stress Management Classes Plan Interventions/Plan:: Assess stressors,coping strategies & signs of derpression on admission, Instruct/assist pt to develop coping & personal stress Mgt strategies, Refer to Behavioral Health if appropriate, Refer to Physician if appropriate, Instruct patient to recognize signs & symptoms of depression, Ins truct patient to recog and Other additional plan/intervention Psychosocial - 90-Day Visit Session Number:: 23 Problems/Goals History of Emotional Disorders: Depression (pt feldman a hx of depression which he denies at this time.) Psychosocial Goals: 1. Patient is free from overwhelming symtoms of depression (or anxiety, 2. Identifies personal stressors & states the strategies for managing, 3. Identifies activities to decrease isolation and/or symptoms of, 4. Improved psychosocial coping skills., 5. Verbalizes coping strategies., 6. Adequate treatment of depression. and 7. Improved Q.O.L. Psychosocial Test Tool Used:: Pulmonary QOL and PHQ-9 Questionnaire Referred to MD for counseling:: No Referral to Behavioral Health PS - Interventions: Yes: Attend Stress Management Classes Plan Interventions/Plan:: Assess stressors,coping strategies & signs of derpression on admission, Instruct/assist pt to develop coping & personal stress Mgt strategies, Refer to Behavioral Health if appropriate, Refer to Physician if appropriate, Instruct patient to recognize signs & symptoms of depression, Instruct patient to recog and Other additional plan/intervention Psychosocial - Final Assess Visit Session Number:: 23 Problems/Goals History of Emotional Disorders: Depression (pt feldman a hx of depression which he denies at this time.) Psychosocial Goals: 1. Patient is free from overwhelming symtoms of depression (or anxiety, 2. Identifies personal stressors & states the strategies for managing, 3. Identifies activities to decrease isolation and/or symptoms of, 4. Improved psychosocial coping skills., 5. Verbalizes coping strategies., 6. Adequate treatment of depression. and 7. Improved Q.O.L. Psychosocial Test Tool Used:: Pulmonary QOL and PHQ-9 Questionnaire Referred to MD for counseling:: No Referral to Behavioral Health PS - Interventions: Yes: Attend Stress Management Classes Plan Interventions/Plan:: Assess stressors,coping strategies & signs of derpression on admission, Instruct/assist pt to develop coping & personal stress Mgt strategies, Refer to Behavioral Health if appropriate, Refer to Physician if appropriate, Instruct patient to recognize signs & symptoms of depression, Instruct patient to recog and Other additional plan/intervention Oxygen & Oxygen Titration Init Visit Session Number:: 23 Initial Assessment SpO2:: 91 Oxygen & Oxygen Titration 30D Visit Date of Eval: 08/07/24 Session Number:: 23 Reassessment SpO2:: 91 Oxygen & Oxygen Titration 60D Visit Date of Eval: 08/07/24 Session Number:: 23 Reassessment Reassessment- 60 Days: Demonstrate knowledge of O2 Rx at rest & w/exercise, Using O2 as Rx'd, Has home O2 as Rx'd and Uses port O2 as Rx'd SpO2:: 91 Oxygen & Oxygen Titration 90D Visit Date of Eval: 08/07/24 Session Number:: 23 Reassessment SpO2:: 91 Oxygen & Oxygen Titration JOEL Visit Date of Eval: 08/07/24 Session Number:: 23 Reassessment SpO2:: 91 Core Components - Initial Visit Session Number:: 23 Hypertension BP: 116/70 [place] [employer] Hypertension Guidelines Blood Pressure: 144/76 Outcomes/Goals: Able to verbalize/achieve optimal blood pressure <130/80, Incorporates diet changes & exercise for blood pressure control by DC and Other additional outcomes/goals Tobacco - Initial Assessment Tobacco Program Goals Tobacco Use: Non-smoker Diabetes Diabetes:: No Heart Failure Documenting weight daily for CHF: Yes Core Components - 30 DAYS Visit Date of Eval: 08/07/24 Session Number:: 23 Hypertension Resting Blood Pressure:: 116/70 [place] [employer] Hypertension Guidelines Peak Exercise Blood Pressure:: 144/76 Change in medication: No Outcomes/Goals: Able to verbalize/achieve optimal blood pressure <130/80, Incorporates diet changes & exercise for blood pressure control by DC and Other additional outcomes/goals Interventions/plan: Instruct on optimal blood pressure, hypertension & medications, Instruct on effects of sodium, alcohol, stress, exercise &hypertension and Other additional plan/interventions Tobacco - 30-Day Tobacco Program Goals Learning Barriers: Participates in education Tobacco Use: Non-smoker Exacerbation Mgmt & Airway Clearance Reassessment: Demonstrates knowledge of O2 Rx at rest, Demonstrates knowledge of O2 Rx with exercise, Using O2 as prescribed, Has home O2 as prescribed and Uses port O2 as prescribed Bronchial Hygiene Plan: Yes: Pt demonstrates correctly for effective cough, Yes: Pt demo correct for CPT, Yes: Pt demo correct for device, Yes: Pt demo correct for NS nasal spray, Yes: Pt demo correct for sputum management, Yes: Pt demo correct for improved hydration, Yes: Pt demo correct for hand hygiene, Yes: Pt demo correct for evalute sputum, Yes: Pt demo correct for verbalize when to call MD and Yes: Pt demo correct for cleaning of respiratory equipment Medication Taking medications 100% of the time:: Met Medication reassessment: Yes: Pt demonstrates correct technique timing for MDI, Yes: Pt demonstrates correct technique timing for DPI, Yes: Pt demonstrates correct technique timing for NEB and Yes: Pt demonstrates correct technique timing for spacer Diabetes Diabetes:: No Heart Failure Documenting weight colt: Yes Core Components - 60 DAYS Visit Date of Eval: 08/07/24 Session Number:: 23 Hypertension Resting Blood Pressure:: 116/70 [place] [employer] Hypertension Guidelines Peak Exercise Blood Pressure:: 144/76 Change in medication: No Outcomes/Goals: Able to verbalize/achieve optimal blood pressure <130/80, Incorporates diet changes & exercise for blood pressure control by DC and Other additional outcomes/goals Interventions/plan: Instruct on optimal blood pressure, hypertension & medications, Instruct on effects of sodium, alcohol, stress, exercise &hypertension and Other additional plan/interventions Tobacco - 60-Day Tobacco Program Goals Learning Barriers: Participates in education Tobacco Use: Non-smoker Exacerbation Mgmt & Airway Clearance Reassessment: Demonstrates knowledge of O2 Rx at rest, Demonstrates knowledge of O2 Rx with exercise, Using O2 as prescribed, Has home O2 as prescribed and Uses port O2 as prescribed Bronchial Hygiene Plan: Yes: Pt demonstrates correctly for effective cough, Yes: Pt demo correct for CPT, Yes: Pt demo correct for device, Yes: Pt demo correct for NS nasal spray, Yes: Pt demo correct for sputum management, Yes: Pt demo correct for improved hydration, Yes: Pt demo correct for hand hygiene, Yes: Pt demo correct for evalute sputum, Yes: Pt demo correct for verbalize when to call MD and Yes: Pt demo correct for cleaning of respiratory equipment Medication Medication list reviewed:: Yes Taking medications 100% of the time:: Met Taking medications 100% of the time:: Met Medication reassessment: Yes: Pt demonstrates correct technique timing for MDI, Yes: Pt demonstrates correct technique timing for DPI, Yes: Pt demonstrates correct technique timing for NEB and Yes: Pt demonstrates correct technique timing for spacer 60-day Reassessments:: Met Reassessment Notes & Comments:: Pt reports taking meds as prescribed. Will continue to monitor. Diabetes Diabetes:: No Heart Failure Documenting weight colt: Yes Core Components - 90 DAYS Visit Session Number:: 23 Hypertension Resting Blood Pressure:: 116/70 [place] [employer] Hypertension Guidelines Peak Exercise Blood Pressure:: 144/76 Outcomes/Goals: Able to verbalize/achieve optimal blood pressure <130/80, Incorporates diet changes & exercise for blood pressure control by DC and Other additional outcomes/goals Interventions/plan: Instruct on optimal blood pressure, hypertension & medications, Instruct on effects of sodium, alcohol, stress, exercise &hypertension and Other additional plan/interventions Tobacco - 90-Day Tobacco Program Goals Learning Barriers: Participates in education Tobacco Use: Non-smoker Exacerbation Mgmt & Airway Clearance Bronchial Hygiene Plan: Yes: Pt demonstrates correctly for effective cough, Yes: Pt demo correct for CPT, Yes: Pt demo correct for device, Yes: Pt demo correct for NS nasal spray, Yes: Pt demo correct for sputum management, Yes: Pt demo correct for improved hydration, Yes: Pt demo correct for hand hygiene, Yes: Pt demo correct for evalute sputum, Yes: Pt demo correct for verbalize when to call MD and Yes: Pt demo correct for cleaning of respiratory equipment Medication Medication reassessment: Yes: Pt demonstrates correct technique timing for MDI, Yes: Pt demonstrates correct technique timing for DPI, Yes: Pt demonstrates correct technique timing for NEB and Yes: Pt demonstrates correct technique brian ing for spacer Diabetes Diabetes:: No Core Components - Final Visit Session Number:: 23 Hypertension Resting Blood Pressure:: 116/70 [place] [employer] Hypertension Guidelines Peak Exercise Blood Pressure:: 144/76 Outcomes/Goals: Able to verbalize/achieve optimal blood pressure <130/80, Incorporates diet changes & exercise for blood pressure control by DC and Other additional outcomes/goals Tobacco - Final Tobacco Program Goals Learning Barriers: Participates in education Tobacco Use: Non-smoker Exacerbation Mgmt & Airway Clearance Bronchial Hygiene Plan: Yes: Pt demonstrates correctly for effective cough, Yes: Pt demo correct for CPT, Yes: Pt demo correct for device, Yes: Pt demo correct for NS nasal spray, Yes: Pt demo correct for sputum management, Yes: Pt demo correct for improved hydration, Yes: Pt demo correct for hand hygiene, Yes: Pt demo correct for evalute sputum, Yes: Pt demo correct for verbalize when to call MD and Yes: Pt demo correct for cleaning of respiratory equipment Medication Medication reassessment: Yes: Pt demonstrates correct technique timing for MDI, Yes: Pt demonstrates correct technique timing for DPI, Yes: Pt demonstrates correct technique timing for NEB and Yes: Pt demonstrates correct technique timing for spacer Diabetes Diabetes:: No Patient Health Questionnaire PHQ-9 Screening 60-Day Re-eval Assessment: 1. Little interest or pleasure in doing things: Several days 2. Feeling down, depressed, or hopeless: Not at all 3. Trouble falling or staying asleep, or sleeping too much: Not at all 4. Feeling tired or having little energy: Several days 5. Poor appetite or overeating: Several days 6. Feeling bad about yourself -- or that you are a failure or have let yourself or your family down: Not at all 7. Trouble concentrating on things, such as reading the newspaper or watching television: Not at all 8. Moving or speaking so slowly that other people could have noticed. Or the opposite - being so fidgety or restless that you have been moving around a lot more than usual: Not at all 9. Thoughts that you would be better off , or of hurting yourself in some way: Not at all How difficult have these problems made it for you to do your work, take care of things at home, or get along with other people?: Not difficult at all Total Score: 3 Knowledge Questionaire (BCKQ) Information Information: [place] COPD Knowledge Questionnaire (BCKQ) This questionnaire is designed to find out what you know about your lung problem. It should be completed without help form anyone else. This usually takes between 10 and 20 minutes. Your answers will help us to find out what information you need to help you to understand and manage your lung condition. Lester the tangirnaq which you think is the correct answer. Self-Efficacy 6-Item Scale 60-Day Re-eval Assessment: We would like to know how confident you are in doing certain activities. Please select your confidence level for: Fatigue Select Number: 2 Physical Discomfort or Pain Select Number: 2 Emotional Distress Select Number: 2 Other Symptoms or Health Problems Select Number: 1 Different Tasks and Activities Select Number: 4 Medication Select Number: 5 Total Score:: 2 Nutrition Survey Nutrition Survey Instructions Scoring Instructions
[2024-08-07 07:23] VITALS: BP 116/70; BP 144/76; O2SAT 91; BMI 41.8
== END 2024-08-22 23:59 ==
LOC: PR 13:00
PROVIDERS: PCP Student in an Organized Health Care Education/Training Program
DX: R06.00 Dyspnea, unspecified (principal)
CPT/HCPCS: 97150; G0239

== ENCOUNTER 2024-09-22 13:00 | Outpatient (RCR) | payer OTHER, SELFPAY ==
[2024-08-07 07:23] VITALS: BMI 41.8
[2024-08-23 00:41] VITALS: BP 120/60; BP 138/62; BMI 41.8
--- NOTE | 2024-09-06 08:33 | PR.ITP_ITS ---
Exercise - Initial Assessment Visit Session Number:: 26 Physician Prescribed Exercise Modalities: VOLITION[employer]Fit Stepper, [employer] ([employer]) Pro-II Ergometer and [employer]) Lateral Apartment Maintenance Current METSs:: 2.3 Target HR:: 107 (86-107) Current RPD:: 2 Maximum Exercise HR:: 89 Resting Blood Pressure: 102/60 Maximum Exercise Blood Pressure: 122/72 Minimum SpO2 with exercise: 90 EKG Type: NSR to ST Nutrition/Wt Mgmt - Initial Visit Session Number:: 26 Weight Management Admit Height:: 6 ft Admit Weight:: 308 lb Admit BMI:: 41.8 Nutrition/Wt Mgmt - 30-Day Visit Date of Eval: 09/06/24 Session Number:: 26 Weight Management Height: 6 ft Weight:: 308 lb BMI: 41.8 Nutrition/Wt Mgmt - 60-Day Visit Session Number:: 26 Weight Management Height: 6 ft Weight:: 308 lb BMI: 41.8 Weight Goals Progress:: Progressing (Pt is encouraged to eat a heart healthy low sodium diet.) Nutrition/Wt Mgmt - 90-Day Visit Date of Eval: 09/06/24 Session Number:: 26 Weight Management Height: 6 ft Weight:: 308 lb BMI: 41.8 Weight Goals Progress:: Progressing (Pt is encouraged to eat a heart healthy low sodium diet.) Nutrition/Wt Mgmt - Final Visit Session Number:: 26 Weight Management Height: 6 ft Weight:: 308 lb BMI: 41.8 Psychosocial - Initial Assess Visit Session Number:: 26 Problems/Goals History of Emotional Disorders: Depression (pt has a hx of depression which he denies at this time.) Psychosocial Goals: 1. Patient is free from overwhelming symtoms of depression (or anxiety, 2. Identifies personal stressors & states the strategies for managing, 3. Identifies activities to decrease isolation and/or symptoms of, 4. Improved psychosocial coping skills., 5. Verbalizes coping strategies. and 6. Adequate treatment of depression. Psychosocial Test Tool Used:: Pulmonary QOL and PHQ-9 Questionnaire Referred to MD for counseling:: No Referral to Behavioral Health PS - Interventions: Yes: Attend Stress Management Classes Intervention/Plan: See List Interventions/Plan:: Assess stressors,coping strategies & signs of derpression on admission, Instruct/assist pt to develop coping & personal stress Mgt strategies, Refer to Behavioral Health if appropriate, Refer to Physician if appropriate, Instruct patient to recognize signs & symptoms of depression and Instruct patient to recog Psychosocial - 30-Day Visit Date of Eval: 09/06/24 Session Number:: 26 Problems/Goals History of Emotional Disorders: Depression (pt has a hx of depression which he denies at this time.) Psychosocial Goals: 1. Patient is free from overwhelming symtoms of depression (or anxiety, 2. Identifies personal stressors & states the strategies for managing, 3. Identifies activities to decrease isolation and/or symptoms of, 4. Improved psychosocial coping skills., 5. Verbalizes coping strategies. and 6. Adequate treatment of depression. Psychosocial Test Tool Used:: Pulmonary QOL and PHQ-9 Questionnaire Referred to MD for counseling:: No Referral to Behavioral Health PS - Interventions: Yes: Attend Stress Management Classes Plan Interventions/Plan:: Assess stressors,coping strategies & signs of derpression on admission, Instruct/assist pt to develop coping & personal stress Mgt strategies, Refer to Behavioral Health if appropriate, Refer to Physician if appropriate, Instruct patient to recognize signs & symptoms of depression and Instruct patient to recog Psychosocial - 60-Day Visit Session Number:: 26 Problems/Goals History of Emotional Disorders: Depression (pt has a hx of depression which he denies at this time.) Psychosocial Goals: 1. Patient is free from overwhelming symtoms of depression (or anxiety, 2. Identifies personal stressors & states the strategies for managing, 3. Identifies activities to decrease isolation and/or symptoms of, 4. Improved psychosocial coping skills., 5. Verbalizes coping strategies. and 6. Adequate treatment of depression. Psychosocial Test Tool Used:: Pulmonary QOL and PHQ-9 Questionnaire Referred to MD for counseling:: No Referral to Behavioral Health PS - Interventions: Yes: Attend Stress Management Classes Plan Interventions/Plan:: Assess stressors,coping strategies & signs of derpression on admission, Instruct/assist pt to develop coping & personal stress Mgt strategies, Refer to Behavioral Health if appropriate, Refer to Physician if appropriate, Instruct patient to recognize signs & symptoms of depression and Instruct patient to recog Psychosocial - 90-Day Visit Date of Eval: 09/06/24 Session Number:: 26 Problems/Goals History of Emotional Disorders: Depression (pt has a hx of depression which he denies at this time.) Psychosocial Goals: 1. Patient is free from overwhelming symtoms of depression (or anxiety, 2. Identifies personal stressors & states the strategies for managing, 3. Identifies activities to decrease isolation and/or symptoms of, 4. Improved psychosocial coping skills., 5. Verbalizes coping strategies. and 6. Adequate treatment of depression. Psychosocial Test Tool Used:: Pulmonary QOL and PHQ-9 Questionnaire Referred to MD for counseling:: No Referral to Behavioral Health PS - Interventions: Yes: Attend Stress Management Classes Plan Interventions/Plan:: Assess stressors,coping strategies & signs of derpression on admission, Instruct/assist pt to develop coping & personal stress Mgt strategies, Refer to Behavioral Health if appropriate, Refer to Physician if appropriate, Instruct patient to recognize signs & symptoms of depression and Instruct patient to recog Psychosocial - Final Assess Visit Session Number:: 26 Problems/Goals History of Emotional Disorders: Depression (pt has a hx of depression which he denies at this time.) Psychosocial Goals: 1. Patient is free from overwhelming symtoms of depression (or anxiety, 2. Identifies personal stressors & states the strategies for managing, 3. Identifies activities to decrease isolation and/or symptoms of, 4. Improved psychosocial coping skills., 5. Verbalizes coping strategies. and 6. Adequate treatment of depression. Psychosocial Test Tool Used:: Pulmonary QOL and PHQ-9 Questionnaire Referred to MD for counseling:: No Referral to Behavioral Health PS - Interventions: Yes: Attend Stress Management Classes Plan Interventions/Plan:: Assess stressors,coping strategies & signs of derpression on admission, Instruct/assist pt to develop coping & personal stress Mgt strategies, Refer to Behavioral Health if appropriate, Refer to Physician if appropriate, Instruct patient to recognize signs & symptoms of depression and Instruct patient to recog Oxygen & Oxygen Titration Init Visit Session Number:: 26 Initial Assessment SpO2:: 90 Oxygen & Oxygen Titration 30D Visit Date of Eval: 09/06/24 Session Number:: 26 Reassessment SpO2:: 90 Oxygen & Oxygen Titration 60D Visit Date of Eval: 09/06/24 Session Number:: 26 Reassessment SpO2:: 90 Oxygen & Oxygen Titration 90D Visit Date of Eval: 09/06/24 Session Number:: 26 Reassessment Oxygen & Oxygen Titration 90 days: Oxygen w/activity (Pt is using 2Lpm during exercise. Pt recently had a 6 min walk test and his O2 requirements have decreased per pt.) SpO2:: 90 Oxygen & Oxygen Titration JOEL Visit Date of Eval: 09/06/24 Session Number:: 26 Reassessment SpO2:: 90 Core Components - Initial Visit Session Number:: 26 Hypertension BP: 102/60 [place] [employer] Hypertension Guidelines Blood Pressure: 122/72 Outcomes/Goals: Able to verbalize/achieve optimal blood pressure <130/80 and Incorporates diet changes & exercise for blood pressure control by DC Tobacco - Initial Assessment Tobacco Program Goals Tobacco Use: Non-smoker Diabetes Diabetes:: No Core Components - 30 DAYS Visit Date of Eval: 09/06/24 Session Number:: 26 Hypertension Resting Blood Pressure:: 102/60 [place] [employer] Hypertension Guidelines Peak Exercise Blood Pressure:: 122/72 Outcomes/Goals: Able to verbalize/achieve optimal blood pressure <130/80 and Incorporates diet changes & exercise for blood pressure control by DC Interventions/plan: Instruct on optimal blood pressure, hypertension & medications and Instruct on effects of sodium, alcohol, stress, exercise &hypertension 30 day Reassessments:: Met Reassessment Notes & Comments:: Pt's BP's are within AHA normal limits most day s. Tobacco - 30-Day Tobacco Program Goals Tobacco Use: Non-smoker Exacerbation Mgmt & Airway Clearance Bronchial Hygiene Plan: Yes: Pt demonstrates correctly for effective cough, Yes: Pt demo correct for CPT, Yes: Pt demo correct for device, Yes: Pt demo correct for NS nasal spray, Yes: Pt demo correct for sputum management, Yes: Pt demo correct for improved hydration, Yes: Pt demo correct for hand hygiene, Yes: Pt demo correct for evalute sputum, Yes: Pt demo correct for verbalize when to call MD and Yes: Pt demo correct for cleaning of respiratory equipment Medication Medication reassessment: Yes: Pt demonstrates correct technique timing for MDI, Yes: Pt demonstrates correct technique timing for DPI, Yes: Pt demonstrates correct technique timing for NEB and Yes: Pt demonstrates correct technique timing for spacer Diabetes Diabetes:: No Core Components - 60 DAYS Visit Session Number:: 26 Hypertension Resting Blood Pressure:: 102/60 [place] [employer] Hypertension Guidelines Peak Exercise Blood Pressure:: 122/72 Outcomes/Goals: Able to verbalize/achieve optimal blood pressure <130/80 and Incorporates diet changes & exercise for blood pressure control by DC Interventions/plan: Instruct on optimal blood pressure, hypertension & medications and Instruct on effects of sodium, alcohol, stress, exercise &hypertension 60 day Reassessments:: Met Reassessment Notes & Comments:: Pt's BP's are within AHA normal limits most days. Tobacco - 60-Day Tobacco Program Goals Tobacco Use: Non-smoker Exacerbation Mgmt & Airway Clearance Bronchial Hygiene Plan: Yes: Pt demonstrates correctly for effective cough, Yes: Pt demo correct for CPT, Yes: Pt demo correct for device, Yes: Pt demo correct for NS nasal spray, Yes: Pt demo correct for sputum management, Yes: Pt demo correct for improved hydration, Yes: Pt demo correct for hand hygiene, Yes: Pt demo correct for evalute sputum, Yes: Pt demo correct for verbalize when to call MD and Yes: Pt demo correct for cleaning of respiratory equipment Medication Medication reassessment: Yes: Pt demonstrates correct technique timing for MDI, Yes: Pt demonstrates correct technique timing for DPI, Yes: Pt demonstrates correct technique timing for NEB and Yes: Pt demonstrates correct technique timing for spacer Diabetes Diabetes:: No Core Components - 90 DAYS Visit Date of Eval: 09/06/24 Session Number:: 26 Hypertension Resting Blood Pressure:: 102/60 [place] [employer] Hypertension Guidelines Peak Exercise Blood Pressure:: 122/72 Outcomes/Goals: Able to verbalize/achieve optimal blood pressure <130/80 and Incorporates diet changes & exercise for blood pressure control by DC Interventions/plan: Instruct on optimal blood pressure, hypertension & medications and Instruct on effects of sodium, alcohol, stress, exercise &hypertension 90 day Reassessments:: Met Reassessment Notes & Comments:: Pt's BP's are within AHA normal limits most days. Tobacco - 90-Day Tobacco Program Goals Tobacco Use: Non-smoker Exacerbation Mgmt & Airway Clearance Reassessment: Demonstrates knowledge of O2 Rx at rest, Demonstrates knowledge of O2 Rx with exercise, Using O2 as prescribed, Has home O2 as prescribed and Uses port O2 as prescribed Bronchial Hygiene Plan: Yes: Pt demonstrates correctly for effective cough, Yes: Pt demo correct for CPT, Yes: Pt demo correct for device, Yes: Pt demo correct for NS nasal spray, Yes: Pt demo correct for sputum management, Yes: Pt demo cor rect for improved hydration, Yes: Pt demo correct for hand hygiene, Yes: Pt demo correct for evalute sputum, Yes: Pt demo correct for verbalize when to call MD and Yes: Pt demo correct for cleaning of respiratory equipment Medication Medication list reviewed:: Yes Taking medications 100% of the time:: Met (pt is taking his meds as prescribed) Medication reassessment: Yes: Pt demonstrates correct technique timing for MDI, Yes: Pt demonstrates correct technique timing for DPI, Yes: Pt demonstrates co rrect technique timing for NEB and Yes: Pt demonstrates correct technique timing for spacer Diabetes Diabetes:: No Core Components - Final Visit Session Number:: 26 Hypertension Resting Blood Pressure:: 102/60 [place] [employer] Hypertension Guidelines Peak Exercise Blood Pressure:: 122/72 Outcomes/Goals: Able to verbalize/achieve optimal blood pressure <130/80 and Incorporates diet changes & exercise for blood pressure control by DC Tobacco - Final Tobacco Program Goals Tobacco Use: Non-smoker Exacerbation Mgmt & Airway Clearance Bronchial Hygiene Plan: Yes: Pt demonstrates correctly for effective cough, Yes: Pt demo correct for CPT, Yes: Pt demo correct for device, Yes: Pt demo correct for NS nasal spray, Yes: Pt demo correct for sputum management, Yes: Pt demo correct for improved hydration, Yes: Pt demo correct for hand hygiene, Yes: Pt demo correct for evalute sputum, Yes: Pt demo correct for verbalize when to call MD and Yes: Pt demo correct for cleaning of respiratory equipment Medication Medication reassessment: Yes: Pt demonstrates correct technique timing for MDI, Yes: Pt demonstrates correct technique timing for DPI, Yes: Pt demonstrates correct technique timing for NEB and Yes: Pt demonstrates correct technique timing for spacer Diabetes Diabetes:: No Patient Health Questionnaire PHQ-9 Screening 90-Day Re-eval Assessment: 1. Little interest or pleasure in doing things: Several days 2. Feeling down, depressed, or hopeless: Not at all 3. Trouble falling or staying asleep, or sleeping too much: Not at all 4. Feeling tired or having little energy: Several days 5. Poor appetite or overeating: Several days 6. Feeling bad about yourself -- or that you are a failure or have let yourself or your family down: Not at all 7. Trouble concentrating on things, such as reading the newspaper or watching television: Not at all 8. Moving or speaking so slowly that other people could have noticed. Or the opposite - being so fidgety or restless that you have been moving around a lot more than usual: Not at all 9. Thoughts that you would be better off , or of hurting yourself in some way: Not at all How difficult have these problems made it for you to do your work, take care of things at home, or get along with other people?: Not difficult at all Total Score: 3 Knowledge Questionaire (BCKQ) Information Information: [place] COPD Knowledge Questionnaire (BCKQ) This questionnaire is designed to find out what you know about your lung problem. It should be completed without help form anyone else. This usually takes between 10 and 20 minutes. Your answers will help us to find out what information you need to help you to understand and manage your lung condition. Lester the resighini which you think is the correct answer. Self-Efficacy 6-Item Scale 90-Day Re-eval Assessment: We would like to know how confident you are in doing certain activities. Please select your confidence level for: Fatigue Select Number: 2 Physical Discomfort or Pain Select Number: 2 Emotional Distress Select Number: 2 Other Symptoms or Health Problems Select Number: 1 Different Tasks and Activities Select Number: 4 Medication Select Number: 5 Total Score:: 2 Nutrition Survey Nutrition Survey Instructions Scoring Instructions
[2024-09-06 08:49] VITALS: BP 102/60; BP 122/72; O2SAT 90; BMI 41.8
== END 2024-09-22 23:59 ==
LOC: PR 13:00
PROVIDERS: PCP Student in an Organized Health Care Education/Training Program
DX: R06.00 Dyspnea, unspecified (principal)
CPT/HCPCS: 97150; G0239

== ENCOUNTER 2024-09-27 13:00 | Outpatient (RCR) | payer OTHER, SELFPAY ==
[2024-09-06 08:49] VITALS: BMI 41.8
[2024-09-23 02:12] VITALS: BP 102/60; BP 122/72; BMI 41.8
== END 2024-10-20 23:59 ==
LOC: PR 13:00
PROVIDERS: PCP Student in an Organized Health Care Education/Training Program
DX: R06.00 Dyspnea, unspecified (principal)
CPT/HCPCS: 97150; G0239; J2405